=== PATIENT | male | born 1940 | race Caucasian/White ===

== ENCOUNTER 2018-05-15 15:40 | Emergency (ER) | payer OTHER ==
[2018-05-15 16:46] LABS: Absolute Lymphocytes (CBC) 0.4 K/uL (0.7-4.9); Absolute Neutrophil 10.8 K/uL (1.8-8.0); Basophils % 0.3 % (0-1.3); Eosinophils % 0.7 % (0-4.4); Hematocrit 44.6 % (39.6-49.0); Lymphocytes % 2.9 % (15.3-44.8); MPV 10.8 fL (7.6-11.3); Monocytes % 8.1 % (3.3-12.3); RBC Red Blood Cell Count 4.73 M/uL (4.33-5.43)
[2018-05-15 16:47] LABS: Protime INR 1.32
--- NOTE | 2018-05-15 17:01 | RAD REPORT ---
EXAM DESCRIPTION: RAD - Chest Single View - 05/15/2018 4:55 pm CLINICAL HISTORY: weakness Chest pain. COMPARISON: No comparisons FINDINGS: Portable technique limits examination quality. The lungs are grossly clear. The heart is normal in size. No displaced fractures. IMPRESSION: No acute intrathoracic process suspected.
[2018-05-15 17:12] LABS: ALT/SGPT 17 U/L (12-78); AST/SGOT 20 U/L (15-37); Albumin 3.5 g/dL (3.4-5.0); Alkaline Phosphatase 33 U/L (45-117); BUN Blood Urea Nitrogen 28 mg/dL (7-18); Bicarbonate 27 mmol/L (21-32); Bilirubin Direct 0.3 mg/dL (0-0.2); Bilirubin Total 1.5 mg/dL (0.2-1.0); Glucose Level 106 mg/dL (74-106); Magnesium 2.1 mg/dL (1.8-2.4); NT PRO-BNP 475 pg/mL (<450); Potassium 4.3 mmol/L (3.5-5.1); Protein, Total 7.1 g/dL (6.4-8.2); Sodium Level 140 mmol/L (136-145); Troponin (Emerg Dept Use Only) < 0.02 ng/mL (0.0-0.045)
[2018-05-15] MEDS ORDERED: NA CHLORIDE 0.9% 1,000 ML ONE (17:33)
--- NOTE | 2018-05-15 18:39 | ER ---
Nurse's Notes [facility] Name: Azeem Mclaughlin III Age: 77 yrs Sex: Male : 1940 Arrival Date: 05/15/2018 Time: 16:08 Bed 14 Private MD: Guilherme Zarate V Diagnosis: Orthostatic hypotension;Dehydration Presentation: 05/15 16:09 Presenting complaint: EMS states: PT WAS AT DR MANUEL OFFICE. POSITIVE FOR FLU. PT WAS ls4 LEAVING AND BECAME WEAK AND LOWERED TO THE GROUND. NO LOC. PT HAS BEEN WEEK AND NOT EATING FOR A FEW DAYS. Transition of care: patient was received from another setting of care (ambulatory primary care physician practice), DR ZARATE. Onset of symptoms was May 15, 2018. Risk Assessment: Do you want to hurt yourself or someone else? Patient reports no desire to harm self or others. Initial Sepsis Screen: Does the patient meet any 2 criteria? No. Patient's initial sepsis screen is negative. Does the patient have a suspected source of infection? No. Patient's initial sepsis screen is negative. Care prior to arrival: None. 16:09 Method Of Arrival: EMS: [facility] ls4 16:09 Acuity: ARCHIE 3 ls4 Triage Assessment: 18:32 General: Appears in no apparent distress. Behavior is calm, cooperative. ls4 Historical: - Allergies: 16:11 No Known Allergies; ls4 - Home Meds: 16:50 aspirin Oral once daily [Active]; Colchicine Oral [Active]; losartan oral oral ls4 [Active]; Metoprolol Tartrate Oral [Active]; ezetimibe oral oral [Active]; - Immunization history:: Last tetanus immunization: not indicated for visit today. - Social history:: Smoking status: Patient/guardian denies using tobacco. - Ebola Screening: : Patient negative for fever greater than or equal to 101.5 degrees Fahrenheit, and additional compatible Ebola Virus Disease symptoms Patient denies exposure to infectious person Patient denies travel to an Ebola-affected area in the 21 days before illness onset No symptoms or risks identified at this time. Screenin:12 Abuse screen: Denies threats or abuse. Denies injuries from another. Nutritional ls4 screening: No deficits noted. Tuberculosis screening: Fall Risk Fall in past 12 months (25 points). Secondary diagnosis (15 points) IV access (20 points). Ambulatory Aid- None/Bed Rest/Nurse Assist (0 pts). Gait- Weak (10 pts.). Mental Status- Oriented to own ability (0 pts). Assessment: 16:13 Pain:. Respiratory: Respiratory effort is even, unlabored, Respiratory pattern is ls4 regular. Vital Signs: 16:11 BP 106 / 57; Pulse 65; Resp 16; Temp 98.4; Pulse Ox 94% on R/A; Pain 5/10; ls4 17:08 BP 143 / 61 Supine; Pulse 66; Resp 17; Pulse Ox 99% on R/A; mh5 17:10 BP 126 / 65 Sitting; Pulse 67; Resp 18; Pulse Ox 100% on R/A; mh5 17:12 BP 105 / 56 Standing; Pulse 69; Resp 18; Pulse Ox 99% on R/A; mh5 18:15 BP 141 / 66 Supine; Pulse 68; Resp 16; ls4 18:17 BP 144 / 64 Sitting; Pulse 68; Resp 16; ls4 18:18 BP 138 / 63 Standing; Pulse 71; Resp 16; Pulse Ox 99% ; ls4 ED Course: 16:08 Patient arrived in ED. ls4 16:08 EKG done, by arcade technician. reviewed by Mode Hilario MD. sm3 16:09 Guilherme Zarate MD is Private Physician. ls4 16:11 Triage completed. ls4 16:11 Arm band placed on. EKG completed in triage. Results shown to MD. ls4 16:12 Elodia Castro [facility]C [facility]. kb 16:12 Mode Hilario MD is Attending Physician. kb 16:13 No provider procedures requiring assistance completed. ls4 16:20 Zara Esquivel, RN is Primary Nurse. ls4 16:46 Inserted saline lock: 18 gauge in right antecubital area, using aseptic technique. ls4 Blood collected. Patient maintains SpO2 saturation greater than 95% on room air. 16:46 Allergy band placed. Bed in low position. Call light in reach. Side rails up X 1. Adult ls4 w/ patient. buffer operator on. Pulse ox on. NIBP on. Warm blanket given. 16:48 X-ray completed. Portable x-ray completed in exam room. Patient tolerated procedure ml well. 16:54 XRAY Chest (1 view) In Process Unspecified. EDMS 18:38 Guilherme Zarate MD is Referral Physician. kb 19:25 IV discontinued, intact, bleeding controlled, No redness/swelling at site. Pressure ls4 dressing applied. Administered Medications: 17:21 Drug: NS 0.9% 1000 ml Route: IV; Rate: 1000 ml; Site: right antecubital; ls4 18:21 Follow up: IV Status: Completed infusion; IV Intake: 1000ml ls4 Intake: 18:21 IV: 1000ml; Total: 1000ml. ls4 Outcome: 18:39 Discharge ordered by . kb 19:25 Patient left the ED. ls4 19:30 Discharged to home ambulatory, with family. ls4 19:30 Condition: good 19:30 Discharge instructions given to patient, family, Instructed on discharge instructions, follow up and referral plans. medication usage, Demonstrated understanding of instructions, follow-up care, medications. Signatures: Dispatcher [employer] EDAK Elodia Castro, PROCESS CONTROL BOARD OPERATOR-C PROCESS CONTROL BOARD OPERATOR-Paulina Aragon Maria 5 Reena Emery 3 Zara Esquivel RN RN ls4 Corrections: (The following items were deleted from the chart) 18:33 18:17 BP 144 / 64; Pulse 68bpm; Resp 16bpm; ls4 ls4 18:33 18:18 BP 138 / 63; Pulse 71bpm; Resp 16bpm; Pulse Ox 99%; ls4 ls4
--- NOTE | 2018-05-15 18:40 | EDPHYS ---
Physician Documentation [facility] Name: Azeem Mclaughlin III Age: 77 yrs Sex: Male : 1940 Arrival Date: 05/15/2018 Time: 16:08 Bed 14 Private MD: Guilherme Zarate V ED Physician Mode Hilario HPI: 05/15 17:35 This 77 yrs old Male presents to ER via EMS with complaints of Near Syncope. kb 17:35 The patient has experienced near-syncope, felt faint, felt generally weak. Onset: The kb symptoms/episode began/occurred just prior to arrival. Duration: This was a single episode. Context: the episode(s) was witnessed, by family, Dr Zarate, occurred at an office, occurred while the patient was standing, Just prior to the episode the patient experienced weakness. Associated injury: The patient did not suffer any apparent associated injury. Associated signs and symptoms: Pertinent positives: weakness. Current symptoms: Currently, the patient is not experiencing any symptoms, the patient feels back to baseline, no decreased level of consciousness, no confusion, no dysphasia, no headache, no paralysis, no visual changes. The patient has not experienced similar symptoms in the past. The patient has been recently seen by a physician: the patient's primary care provider, Dr. Zarate earlier today. Pt was at Dr Zarate's office for flu symptoms and decreased intake. Tested positive for the flu. Was checking out and got weak, was lowered to the ground. . Historical: - Allergies: 16:11 No Known Allergies; ls4 - Home Meds: 16:50 aspirin Oral once daily [Active]; Colchicine Oral [Active]; losartan oral oral ls4 [Active]; Metoprolol Tartrate Oral [Active]; ezetimibe oral oral [Active]; - Immunization history:: Last tetanus immunization: not indicated for visit today. - Social history:: Smoking status: Patient/guardian denies using tobacco. - Ebola Screening: : Patient negative for fever greater than or equal to 101.5 degrees Fahrenheit, and additional compatible Ebola Virus Disease symptoms Patient denies exposure to infectious person Patient denies travel to an Ebola-affected area in the 21 days before illness onset No symptoms or risks identified at this time. ROS: 17:39 Constitutional: Negative for fever, chills, and weight loss, ENT: Negative for injury, kb pain, and discharge, Neck: Negative for injury, pain, and swelling, Cardiovascular: Negative for chest pain, palpitations, and edema, Respiratory: Negative for shortness of breath, cough, wheezing, and pleuritic chest pain, Abdomen/GI: Negative for abdominal pain, nausea, vomiting, diarrhea, and constipation, MS/Extremity: Negative for injury and deformity, Skin: Negative for injury, rash, and discoloration. 17:39 Neuro: Positive for weakness. Exam: 17:39 Constitutional: This is a well developed, well nourished patient who is awake, alert, kb and in no acute distress. Head/Face: Normocephalic, atraumatic. ENT: Nares patent. No nasal discharge, no septal abnormalities noted. Tympanic membranes are normal and external auditory canals are clear. Oropharynx with no redness, swelling, or masses, exudates, or evidence of obstruction, uvula midline. Mucous membranes moist. Neck: Trachea midline, no thyromegaly or masses palpated, and no cervical lymphadenopathy. Supple, full range of motion without nuchal rigidity, or vertebral point tenderness. No Meningismus. Chest/axilla: Normal chest wall appearance and motion. Nontender with no deformity. No lesions are appreciated. Cardiovascular: Regular rate and rhythm with a normal S1 and S2. No gallops, murmurs, or rubs. Normal PMI, no JVD. No pulse deficits. Respiratory: Lungs have equal breath sounds bilaterally, clear to auscultation and percussion. No rales, rhonchi or wheezes noted. No increased work of breathing, no retractions or nasal flaring. Abdomen/GI: Soft, non-tender, with normal bowel sounds. No distension or tympany. No guarding or rebound. No evidence of tenderness throughout. Skin: Warm, dry with normal turgor. Normal color with no rashes, no lesions, and no evidence of cellulitis. MS/ Extremity: Pulses equal, no cyanosis. Neurovascular intact. Full, normal range of motion. Neuro: Awake and alert, GCS 15, oriented to person, place, time, and situation. Cranial nerves II-XII grossly intact. Motor strength 5/5 in all extremities. Sensory grossly intact. Cerebellar exam normal. Normal gait. Vital Signs: 16:11 BP 106 / 57; Pulse 65; Resp 16; Temp 98.4; Pulse Ox 94% on R/A; Pain 5/10; ls4 17:08 BP 143 / 61 Supine; Pulse 66; Resp 17; Pulse Ox 99% on R/A; mh5 17:10 BP 126 / 65 Sitting; Pulse 67; Resp 18; Pulse Ox 100% on R/A; mh5 17:12 BP 105 / 56 Standing; Pulse 69; Resp 18; Pulse Ox 99% on R/A; mh5 18:15 BP 141 / 66 Supine; Pulse 68; Resp 16; ls4 18:17 BP 144 / 64 Sitting; Pulse 68; Resp 16; ls4 18:18 BP 138 / 63 Standing; Pulse 71; Resp 16; Pulse Ox 99% ; ls4 MDM: 16:12 Patient medically screened. kb 17:35 Data reviewed: vital signs, nurses notes. Data interpreted: Pulse oximetry: on room air kb is 99 %. Interpretation: normal. 17:37 Physician consultation: Guilherme Zarate MD was contacted at 16:30, regarding patient's kb condition, Dr Zarate reported that pt had an episode of orthostatic hypotension due to dehydration. Pt's systolic BP was in the 60s. Reports pt did not pass out/ no LOC. 18:38 Counseling: I had a detailed discussion with the patient and/or guardian regarding: the kb historical points, exam findings, and any diagnostic results supporting the discharge/admit diagnosis, lab results, radiology results, the need for outpatient follow up, a family practitioner, to return to the emergency department if symptoms worsen or persist or if there are any questions or concerns that arise at home. 20:15 ED course: Orthostatics negative after fluids. No dizziness or lightheadedness upon kb standing. Educated to increase fluids. 05/15 16:17 Order name: Basic Metabolic Panel; Complete Time: 17:16 kb 05/15 16:17 Order name: CBC with Diff kb 05/15 16:17 Order name: LFT's; Complete Time: 17:16 kb 05/15 16:17 Order name: Magnesium; Complete Time: 17:16 kb 05/15 16:17 Order name: NT PRO-BNP; Complete Time: 17:16 kb 05/15 16:17 Order name: PT-INR; Complete Time: 17:11 kb 05/15 16:17 Order name: Troponin (emerg Dept Use Only); Complete Time: 17:16 kb 05/15 16:17 Order name: XRAY Chest (1 view); Complete Time: 17:11 kb 05/15 16:17 Order name: EKG; Complete Time: 16:18 kb 05/15 16:17 Order name: Cardiac monitoring; Complete Time: 16:42 kb 05/15 16:17 Order name: EKG - Nurse/Tech; Complete Time: 16:42 kb 05/15 16:17 Order name: IV Saline Lock; Complete Time: 16:43 kb 05/15 16:17 Order name: Labs collected and sent; Complete Time: 16:42 kb 05/15 16:17 Order name: O2 Per Protocol; Complete Time: 16:43 kb 05/15 16:17 Order name: O2 Sat Monitoring; Complete Time: 16:43 kb 05/15 16:17 Order name: Orthostatics; Complete Time: 17:27 kb 05/15 18:22 Order name: Orthostatics; Complete Time: 18:28 kb Administered Medications: 17:21 Drug: NS 0.9% 1000 ml Route: IV; Rate: 1000 ml; Site: right antecubital; ls4 18:21 Follow up: IV Status: Completed infusion; IV Intake: 1000ml ls4 Disposition: 05/16 09:10 Co-signature as Attending Physician, Mode Hilario MD I agree with the assessment and ladonna plan of care. Disposition: 05/15/18 18:39 Discharged to Home. Impression: Orthostatic hypotension, Dehydration. - Condition is Stable. - Discharge Instructions: Near-Syncope, [id number], Influenza, Adult, [id number], Dehydration, Adult, [id number]. - Medication Reconciliation Form, Thank You Letter, Antibiotic Education, Prescription Opioid Use form. - Follow up: Emergency Department; When: As needed; Reason: Worsening of condition. Follow up: Guilherme Zarate MD; When: 2 - 3 days; Reason: Recheck today's complaints, Continuance of care, Re-evaluation by your physician. Signatures: Dispatcher [employer] Elodia Eaton, FRONT COUNTER ATTENDANTMode Shannon MD MD cha Stewart, Lisa, RN RN ls4 Corrections: (The following items were deleted from the chart) 05/15 16:31 16:18 Head Brain Wo Cont+CT.RAD.BRZ ordered. EDMS EDMS 19:25 18:39 05/15/2018 18:39 Discharged to Home. Impression: Orthostatic hypotension; ls4 Dehydration. Condition is Stable. Forms are Medication Reconciliation Form, Thank You Letter, Antibiotic Education, Prescription Opioid Use. Follow up: Emergency Department; When: As needed; Reason: Worsening of condition. Follow up: Guilherme Zarate; When: 2 - 3 days; Reason: Recheck today's complaints, Continuance of care, Re-evaluation by your physician. kb
[2018-05-15 20:22] LABS: Blood Morphology Comment NOT SEEN (NOT SEEN); Platelet Estimate ADEQ; Urine White Blood Cell Casts OK
--- NOTE | 2018-05-16 05:27 | EKG ---
Test Date: 2018-05-15 Test Time: 15:54:26 Field Logistics Coordinator: MIMI MEASUREMENT RESULTS: Intervals: Rate: 65 WY: 158 QRSD: 142 QT: 430 QTc: 447 [place]: P: 75 WY: 158 QRS: -68 T: -4 INTERPRETIVE STATEMENTS: Normal sinus rhythm Right bundle branch block Left axis Septal infarct, age undetermined Abnormal ECG Compared to ECG 08/27/1996 05:45:00 Right bundle-branch block now present Left axis now present Electronically Signed On 05-16-18 05:26:22 CDT by Samy Menendez
== END 2018-05-15 19:25 | disposition home or self-care (01) ==
LOC: ER 15:40
DX: I95.1 Orthostatic hypotension (principal); E86.0 Dehydration
CPT/HCPCS: 93005; 85025; 80048; 36415; 83735; 85610; 80076; 84484; 83880; 71045; 96360; 99285; J7030

== ENCOUNTER 2020-02-01 07:53 | Emergency (ER) | payer OTHER ==
--- OUTSIDE RECORDS SUMMARY | 2020-02-01 08:09 | XMS REPORT | Continuity of Care Document ---
:1940 Author Organization Formerly [facility] t Address [address] [place] [address] Care Team Providers Name Role Phone JOHNNIE Primary Care Physician Unavailable CHERELLE Attending Clinician Unavailable Gretchen Barba NP Attending Clinician Fredy FONTENOT Attending Clinician Zurdo Murphy MD Attending Clinician Johnnie STUART Attending Clinician Melodie DAWKINS R Attending Clinician Yang Johnson Attending Clinician Unavailable JOHNNIE Attending Clinician Unavailable Cherelle STUART Attending Clinician Lambert STUART Attending Clinician Barbara DAWKINS Attending Clinician LUISA Attending Clinician Unavailable Luisa DAWKINS Attending Clinician Charli KHAN Attending Clinician Unavailable Anya Sanchez MA Attending Clinician Unavailable ZURDO MURPHY Attending Clinician Unavailable YANG PALM Attending Clinician Unavailable Benson Morrissey MD Attending Clinician Nabor KHAN, T Attending Clinician Unavailable Karen Soto MD Attending Clinician Hazel Abbott MD Attending Clinician Citlali KHAN G Attending Clinician Unavailable Fatoumata Galeas RD Attending Clinician Misbah KHAN, M Attending Clinician Unavailable Karson Attending Clinician Unavailable Dejon KHAN, M Attending Clinician Unavailable Rolo STUART Attending Clinician Som KHAN C Attending Clinician Unavailable Stepahnie Palma RN Attending Clinician Unavailable Diane STUART Attending Clinician Wilder KHAN, L. Attending Clinician Unavailable Jose STUART, A Attending Clinician Мария Cortes Attending Clinician Unavailable Zack KHAN Attending Clinician Unavailable Terrance STUART, Mat Attending Clinician Sohail EARLY, A Attending Clinician Rosi DAWKINS Attending Clinician Cornell FONTENOT, M Attending Clinician Nabor ULLOA Attending Clinician [facility] Attending Clinician Ponce STUART Attending Clinician Doctor Unassigned, Name Attending Clinician Unavailable Rolando Roldan Attending Clinician CHERELLE Admitting Clinician Unavailable Ponce STUART Admitting Clinician Payers Payer Name Policy Type Policy Number Effective Date Expiration Date S bora MEDICARE PART A AND [id number] 2007 B 00:00:00 [employer] NON [id number] 8522-01-01 CONTRACTED 00:00:00 Problems Condition Condition Condition Status Onset Resolution Last Treating Co mments Source Name Details Category Date Date Treatment Clinician Date 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-02 Anderso moderate moderate 00:00: n degree degree 00 Weight Weight Disease Active 2019- MD loss loss 04-14 Anderso 00:00: n 00 Neuropathy Neuropathy Disease Active 2019-0 M D 04-14 Anderso 00:00: n 00 Decrease Decrease Disease Active 2019-0 MD in in 04-14 Anderso appetite appetite 00:00: n 00 Dehydratio Dehydratio Disease Active 2018-03 M D n n 1-15 Anderso 00:00: n 00 Encounter Encounter Disease Active 2018-03 Overview: MD for other for other 0-10 EKG Adams rso preprocedu preprocedu 00:00: 12/11/18 n ral ral 00 - 66, examinatio examinatio SRRBBB n n and LAFBProba marge LVHAbnorm alNote dated 9 signed by Roman Mon MDI have recently examined the above patient. Indicated cardiac testing was done. It is my impressio n that the patient is at acceptabl e risk for the planned surgery. Outside echo 03/14/2016 TDS. LV normal in size, mild LVH. EF 55%. No regional wall motion abnormali ties. Outside carotid doppler 07/01/2018 Intimal thickenin g noted, patent L CEA indicatin g < 50% disease. 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 Pt is followed by Dr. Roman Mon q6 months. Pt routinely has stress test, echos, caortid dopplers. Last stress test following angioplas ty was negative per pt. Requested reports. Paroxysmal Paroxysmal Disease Active 2018-03 Overview : atrial atrial 0-10 Dx 2016 Anderso fibrillati fibrillati 00:00: following n on on 00 stent placement . Denies hx of cardiover raciel. Pt takes amiodaron 200mg daily and metoprolo l 50mg daily. Was taking eliquis 2.5mg daily, however pt stopped taking 2 weeks ago. Pt in SR on EKG 12/11/18. Long-term Long-term Disease Active 2018-03 Overview: (current) (current) 0-10 eliquis And erso use of use of 00:00: 2.5mg for n anticoagul anticoagul 00 A-fib. ants ants LD 12/03/18. Long-term Long-term Disease Active 2018-03 Overview: (current) (current) 0-10 Plavix Adams rso use of use of 00:00: for hx of n antiplatel antiplatel 00 EDWIN x2. ets/antith ets/antith Last dose rombotics rombotics 11/13/18. 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 BP Readings from Last 3 Encounter s: 12/11/18 133/65 12/11/18 148/67 12/10/18 137/67 Gout Gout Disease Active 2018-03 Overview: 0-10 Last Anderso 00:00: flare 3 n 00 weeks ago. Pt takes allopurin ol and cochicine . Chronic Chronic Disease Active 2018-03 Overview: obstructiv obstructiv 0-10 Pt does A nderso e e 00:00: not have n pulmonary pulmonary 00 any disease disease inhalers or O2 for COPD. Chronic Chronic Disease Active 2018-03 Overview: kidney kidney 0-10 Formattin Anderso disease, disease, 00:00: g of this n Stage III Stage III 00 note (moderate) (moderate) might be different from the original. Lab Results Component Value Date CREATININ E 1.65 (H) 9 CREATININ E 2.10 (H) 9 CREATININ E 1.85 (H) 9 estimated creatinin e clearance is 40 mL/min (A) (by C-G formula based on SCr of 1.65 mg/dL (H)).Lab Results Component Value Date/Time EGFRAA 46 (L) 9 03:00 PM EGFRNAA 40 (L) 9 03:00 PM Carotid Carotid Disease Active 2018-03 Overview: artery artery 0-10 s/p a Champ stenosis stenosis 00:00: procedure n 00 in which the plaque was "cleaned out" in 2005. Pt denies hx of carotid endartere ctomy. Pt is followed by cardiolog ist q6 months, last July 2018. Bilateral carotid doppler at that time was negative. Requeste d report. 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 Family History Family Member Diagnosis Comments Start Date Stop Date Source Natural father -Colon cancer MD Adams flowers Natural father -Melanoma MD Champ thrasher Natural mother -Liver cancer MD Adams flowers Social History Social Habit Start Date Stop Date Quantity Comments Source Sex Assigned At MD Smart on Cigarettes smoked 2019-09-16 2019-09-16 MD Adams flowers current (pack per 00:00:00 00:00:00 day) - Reported Tobacco use and 2019-09-16 2019-09-16 Never used MD Smart on exposure 00:00:00 00:00:00 Alcohol intake 2019-09-16 2019-09-16 Ex-drinker MD Champ thrasher 00:00:00 00:00:00 (finding) Alcohol Comment 2018-11-28 2018-11-28 2 drinks per day MD Hilario 00:00:00 00:00:00 History of tobacco 1960-03-04 2006-09-07 Current smoker MD Hilario use 00:00:00 00:00:00 Smoking Status Start Date Stop Date Source Former smoker 2019-09-16 00:00:00 2019-09-16 00:00:00 MD Rodriguez son Medications Ordered Filled Start Stop Current Ordering Indication Dosage Frequency Signature Comments Components Source Medication Medication Date Date Medication? Clinician (SIG) Name Name fexofenadin Yes 60mg Take 60 mg e (LINO) 9-29 by mouth Adams rso 60 mg 18:08: as needed. n tablet 55 losartan-hy Yes 1{tbl} Take 1 MD drochloroth 9-29 tablet by And erso iazide 18:08: mouth n (HYZAAR) 55 daily. 100-25 mg per tablet ONE DAILY 2019- No 1{tbl} Take 1 MD MULTIVITAMI 10-16 tablet by An derso N ORAL 23:11: 00:00 mouth. n 35 :00 vit 2019- No 1{capsu Take 1 MD C/E/Zn/amanda 10-16 le} capsule by A nderssaad r/lutein/ze 23:11: 00:00 mouth n axan 35 :00 daily as (PRESERVISI needed. ON AREDS-2 ORAL) bisacodyl 2019- No 5mg Take 5 mg MD (DULCOLAX) 10-16 by mouth Adams rso 5 mg EC 23:11: 00:00 as needed n tablet 35 :00 for constipati on. Takes as needed ezetimibe 2019- No Take by MD (ZETIA 10-16 mouth as Anderso ORAL) 23:11: 00:00 needed. n 34 :00 senna-docus Yes Cancer of 2{tbl} Take 2 MD ate 7-14 anal tablets by Champ (SENOKOT-S) 00:00: margin, not mouth 2 n 8.6 mg-50 00 otherwise (two) mg tablet specified times a day as needed for constipati on. polyethylen Yes Cancer of Fill M D e glycol 7-14 anal powder to Berry o (Miralax) 00:00: margin, not top of n 17 00 otherwise white gram/dose specified section in powder cap which is marked to indicate the correct dose (17 g) stir and dissolve in any 4 to 8 ounces of beverage (cold, hot or room temperatur e) then drink once a day. DO NOT TAKE if you are having diarrhea (loose or frequent stools). metroNIDAZO 2019- No Cancer of Take 1 MD LE (FLAGYL) 08-20-14 overlapping tablet by Anderssaad 500 mg 00:00: 00:00 sites of mouth at n tablet 00 :00 rectum, 9pm and at anus and 11pm the anal canal evening prior to surgery amiodarone 2019- Yes 100mg Take 100 MD (PACERONE) 6-17 mg by Anderso 200 mg 00:00: mouth n tablet 00 daily. metoprolol 2019- Yes 50mg Take 50 mg M D tartrate 6-17 by mouth Anderso (LOPRESSOR) 00:00: twice n 50 mg 00 daily. tablet HYDROcodone 2019- No Cancer 1{tbl} Take 1 MD -acetaminop 6- 07-14 associated tablet by Champ hen (NORCO) 00:00: 00:00 pain mouth n 10 mg-325 00 :00 every 6 mg per (six) tablet hours as needed for moderate pain. losartan-hy 2019-2019- No 1{tbl} Take 1 M D drochloroth 5-18 06- tablet by Gissell powell 00:00: 00:00 mouth n (HYZAAR) 00 :00 daily. 100-25 mg per tablet ondansetron 2019- Yes cancer 8mg Take 1 MD (Zofran) 8 4-08 chemotherap tablet (8 Anderso mg tablet 00:00: y-induced mg) by n 00 nausea and mouth vomiting every 8 (eight) hours as needed for nausea or vomiting. prochlorper 2019- Yes cancer 10mg Take 1 MD azine 4-08 chemotherap tablet (10 A nderso (Compazine) 00:00: y-induced mg) by n 10 mg 00 nausea and mouth tablet vomiting every 6 (six) hours as needed for nausea or vomiting. loperamide 2019- No chemotherap 2 tabs po MD (Imodium 06-09- y-induced 1st loose Anderso A-D) 2 mg 00:00: 00:00 diarrhea stool, n tablet 00 :00 then 1 tab q2h until diarrhea free for 12 hours. May take 2 tabs q4hrs at night. diphenoxyla 2019-2019- No chemotherap 1{tbl} Take 1-2 MD te-atropine -10 08-14 y-induced tablets by Anderssaad (LomotiL) 00:00: 00:00 diarrhea mouth n 2.5 00 :00 every 6 mg-0.025 mg (six) per tablet hours as needed for diarrhea (or loose stool. (Second Choice)). Not to exceed 8 tablets per day diphenoxyla 2019-2019- No chemotherap 1{tbl} Take 1-2 MD te-atropine 06-09 y-induced tablets by Anderso (LomotiL) 00:00: 00:00 diarrhea mouth n 2.5 00 :00 every 6 mg-0.025 mg (six) per tablet hours as needed for diarrhea (or loose stool. (Second Choice)). Not to exceed 8 tablets per day ondansetron 2019- No cancer 8mg Take 1 M D (Zofran) 8 06-09 chemotherap tablet (8 Anderso mg tablet 00:00: 00:00 y-induced mg) by n 00 :00 nausea and mouth vomiting every 8 (eight) hours as needed for nausea or vomiting. prochlorper 2019- No cancer 10mg Take 1 M D azine 06-09 chemotherap tablet (10 Anderso (Compazine) 00:00: 00:00 y-induced mg) by n 10 mg 00 :00 nausea and mouth tablet vomiting every 6 (six) hours as needed for nausea or vomiting. capecitabin 2019- No Cancer of 1000mg Take 2 MD e (Xeloda) 06-09 overlapping tablets by Anderso 500 mg 00:00: 00:00 sites of mouth in n tablet 00 :00 rectum, the anus and morning anal canal and 2 tablets in the evening Saturday-Sat with radiation. colchicine 2019-2019- No 1{tbl} Take 1 MD (COLCRYS) 05-05 tablet by Adams villaloboso 0.6 mg 00:00: 00:00 mouth as n tablet 00 :00 needed. metroNIDAZO 2019- No Cancer of Take 1 MD LE (FLAGYL) 05-04 overlapping tablet by Anderso 500 mg 00:00: 00:00 sites of mouth at n tablet 00 :00 rectum, 9pm and at anus and 11pm the anal canal evening prior to surgery neomycin 2019-2019- No Cancer of Take 1 po MD (MYCIFRADIN 05-04 overlapping at 9pm and Anderso ) 500 mg 00:00: 00:00 sites of 1 po at n tablet 00 :00 rectum, 11pm the anus and night anal canal prior to surgery amLODIPine 2019- No 1{tbl} Take 1 (NORVASC) 5 03-23 03-03 tablet by An derso mg tablet 00:00: 00:00 mouth n 00 :00 daily. sucralfate 2018-03- No Reflux 1000mg Swish and (CARAFATE) 2 07-14 esophagitis swallow 10 Anderso 100 mg/mL 00:00: 00:00 mL (1,000 n suspension 00 :00 mg) 4 (four) times a day before meals and nightly. clindamycin 2018-03- No TAKE 2 (CLEOCIN) 03-24-03 CAPSULES Michael so 150 mg 00:00: 00:00 BY MOUTH 4 n capsule 00 :00 TIMES A DAY FOR 10 DAYS diphenoxyla 2018-03- No Cancer of 1{tbl} Take 1 to te-atropine 03-1814 overlapping 2 tablets Anderso (LOMOTIL) 00:00: 00:00 sites of by mouth n 2.5 00 :00 rectum, every 6 mg-0.025 mg anus and (six) per tablet anal canal hours as needed for diarrhea. Not to exceed 8 tablets per day pantoprazol 2018-03- No Cancer of 40mg Take 1 e 03-18 04-08 overlapping tablet (40 A nderso (PROTONIX) 00:00: 00:00 sites of mg) by n 40 mg EC 00 :00 rectum, mouth tablet anus and daily with anal canal breakfast. sucralfate 2018-03- No Cancer of 1000mg Swish and (CARAFATE) 03-1806 overlapping swallow 10 Anderso 100 mg/mL 00:00: 00:00 sites of mL (1,000 n suspension 00 :00 rectum, mg) 4 anus and (four) anal canal times a day before meals and nightly. At least 1 hr before meals and other medication s traMADol 2018- Yes Chronic 50mg Take 1 (ULTRAM) 50 0-18 pain tablet (50 An derso mg tablet 00:00: mg) by n 00 mouth 2 (two) times a day as needed for moderate pain or severe pain. lidocaine-p 2018-03 Yes Encounter Apply to rilocaine 0-10 for Port-A-Cat Adams rso (EMLA) 00:00: adjustment h area 30 n 2.5-2.5% 00 and to 45 cream management minutes of vascular prior to access port device access as directed (topical anesthetic ). lidocaine 2018-03- No Cancer 1{appli Apply 1 MD (ANECREAM5) 0-10 07-14 associated cation} applicatio Anderso 5 % cream 00:00: 00:00 pain n n 00 :00 topically 3 (three) times a day as needed (rectal pain). ondansetron 2019- No Cancer of 8mg Take 1 MD (ZOFRAN) 8 11-28 04-06 overlapping tablet (8 Anderso mg tablet 00:00: 00:00 sites of mg) by n 00 :00 rectum, mouth anus and every 8 anal canal (eight) hours as needed for nausea or vomiting. (First Choice) prochlorper 2019- No Cancer of 10mg Take 1 MD azine 11-28- overlapping tablet (10 Anderso (COMPAZINE) 00:00: 00:00 sites of mg) by n 10 mg 00 :00 rectum, mouth tablet anus and every 6 anal canal (six) hours as needed for nausea or vomiting. (Second Choice) clopidogrel Yes 75mg Take 75 mg MD (PLAVIX) 75 7-10 by mouth Adams rso mg tablet 00:00: daily. n 00 Last dose 3 weeks ago. metoprolol 2019- No 50mg Take 50 mg MD tartrate 09-05 by mouth Berry o (LOPRESSOR) 00:00: 00:00 daily. n 50 mg 00 :00 tablet ELIQUIS 2.5 2019- No 2.5mg Take 2.5 MD mg tablet 09-01- mg by Anderso 00:00: 00:00 mouth n 00 :00 daily. allopurinol 2019- No 100mg Take 100 MD (ZYLOPRIM) 07-20- mg by Anderso 100 mg 00:00: 00:00 mouth as n tablet 00 :00 needed. amiodarone 2019- No 100mg Take 100 M D (PACERONE) 07-10 06- mg by Anderso 200 mg 00:00: 00:00 mouth n tablet 00 :00 daily. loperamide 2019- No as needed. (IMODIUM) 2 308-02 Anderso mg capsule 00:00: 00:00 n 00 :00 colchicine 2019- No daily. MD 0.6 mg cap 10-29 Anderso 00:00: 00:00 n 00 :00 losartan-hy 2019- No .5{tbl} Take 0.5 MD drochloroth 09-06 tablets by A robrssaad iazide 00:00: 00:00 mouth n (HYZAAR) 00 :00 daily. 100-12.5 mg per tablet atorvastati 2019- No daily. MD thrasher (LIPITOR) 08-27 Anderso 80 mg 00:00: 00:00 n tablet 00 :00 meloxicam 2019- No as needed. Courtney Dobson (MOBIC) 15 08-21 Anderso mg tablet 00:00: 00:00 n 00 :00 Vital Signs Vital Name Observation Time Observation Value Comments Source WEIGHT 2019-09-08 00:00:00 75.1 kg WEIGHT 2019-09-08 00:00:00 75.1 kg WEIGHT 2019-08-21 00:00:00 75.4 kg WEIGHT 2019-08-21 00:00:00 75.4 kg Systolic blood pressure 2019-12-01 17:50:51 146 mm[Hg] MD Hilario Diastolic blood pressure 2019-12-01 17:50:51 67 mm[Hg] MD Hilario Heart rate 2019-12-01 17:50:51 46 /min MD Michael young Body temperature 2019-12-01 17:50:51 36.61 Shahnaz MD Patricio crouch Oxygen saturation in 2019-12-01 17:50:51 100 /min MD Hilario Arterial blood by Pulse oximetry Respiratory rate 2019-11-30 14:33:49 20 /min MD Patricio crouch Body weight 2019-11-30 14:30:00 75.1 kg MD Michael young BMI 2019-11-30 14:30:00 26.29 kg/m2 MD Michael young Body height 2019-09-14 23:24:50 169 cm MD Micheal young Procedures Procedure Date / Time Performed Performing Clinician [facility] e TYPE AND SCREEN 2019-09-15 08:17:00 Lam Richardson MD ABORH 2019-09-15 08:17:00 Lam Richardson MD ANTIBODY SCREEN 2019-09-15 08:17:00 Lam Richardson MD CLOT EXPIRATION DATE 2019-09-15 08:17:00 Lam Richardson MD rson TMP INTERPRETATION ANTIBODY 2019-09-15 08:17:00 Lam Richardson MD SCREEN NEGATIVE PATHOLOGY SURGICAL 2019-09-14 13:08:00 Lam Richardson MD on INTERPRETATION EXCISION OF TUMOR OF SOFT 2019-09-14 11:22:00 Lam Richardson MD TISSUE OF PELVIS AND HIP AREA REARRANGEMENT OF ADJACENT 2019-09-14 11:22:00 Se Murphy MD TISSUE FOR REPAIR OF DEFECT OF TRUNK BLOOD UREA NITROGEN 2019-09-12 15:33:00 Robert Schmitzer son COMPLETE BLOOD COUNT W/ 2019-09-12 15:33:00 Robert Schmitz MD nderson DIFFERENTIAL SERUM CREATININE 2019-09-12 15:33:00 Robert Schmitz MD ELECTROLYTE PANEL 2019-09-12 15:33:00 Robert Schmitz MDo n GLUCOSE, RANDOM 2019-09-12 15:33:00 Robert Schmitz MD TYPE AND SCREEN 2019-09-12 15:33:00 Robert Schmitz MD SERUM CREATININE 2019-09-12 15:33:00 Robert Schmitz MD .GLOMERULAR FILTRATION RATE 2019-09-12 15:33:00 Robert Schmitz MD Results CBC 2019-09-12 15:33:00 Robert Schmitz MD MANUAL DIFFERENTIAL 2019-09-12 15:33:00 Robert Schmitzer son ABORH 2019-09-12 15:33:00 Robert Schmitz MD ANTIBODY SCREEN 2019-09-12 15:33:00 Robert Schmitz MD CLOT EXPIRATION DATE 2019-09-12 15:33:00 Robert Schmitz MD rson TMP INTERPRETATION ANTIBODY 2019-09-12 15:33:00 Robert Schmitz MD SCREEN NEGATIVE CONFIRM ABORH TYPE 2019-09-12 15:29:00 Robert Schmitz MD on HC COVID19 AUTOMATED PCR 2019-09-12 15:17:00 Ruth Augustin MD EKG, 12-LEAD (SCHEDULED) 2019-09-08 00:00:[address] CHEST ABDOMEN PELVIS W 2019-08-20 22:47:25 Jovanni Palm CONTRAST BLOOD UREA NITROGEN 2019-08-20 19:43:00 Jovanni Palm MD nderson CARCINOEMBRYONIC ANTIGEN 2019-08-20 19:43:00 Jovanni Palm MD SERUM CREATININE 2019-08-20 19:43:00 Jovanni Palm MD Adams rson COMPLETE BLOOD COUNT W/ 2019-08-20 19:43:00 Jovanni Palm MD DIFFERENTIAL ELECTROLYTE PANEL 2019-08-20 19:43:00 Jovanni Palm MD And erson SERUM CREATININE 2019-08-20 19:43:00 Jovanni Palm MD Adams rson .GLOMERULAR FILTRATION RATE 2019-08-20 19:43:00 Jovanni Palm MD Results CBC 2019-08-20 19:43:00 Jovanni Palm MD Michael son MANUAL DIFFERENTIAL 2019-08-20 19:43:00 Jovanni Palm MD nderson COMPLETE BLOOD COUNT W/ 2019-07-06 14:47:00 Chadd Blair MD nderson DIFFERENTIAL COMPREHENSIVE METABOLIC PANEL 2019-07-06 14:47:00 Anai Blair LACTATE DEHYDROGENASE 2019-07-06 14:47:00 Chadd Blair MD And erson MAGNESIUM LEVEL 2019-07-06 14:47:00 Chadd Blair MD PHOSPHORUS LEVEL 2019-07-06 14:47:00 Chadd Blair MD Results CBC 2019-07-06 14:47:00 Chadd Blair MD MANUAL DIFFERENTIAL 2019-07-06 14:47:00 [facility]add [facility] GLUCOSE LEV[facility] 2019-07-06 14:47:00 Chadd Blair MD BLOOD UREA NITROGEN 2019-07-06 14:47:00 Chadd Blair MD Michael son ELECTROLYTE PANEL 2019-07-06 14:47:00 Chadd Blair MDo SERUM CREATININE 2019-07-06 14:47:00 Chadd Blair MD .GLOMERULAR FILTRATION RATE 2019-07-06 14:47:00 Chadd Blair MD CALCIUM LEVEL TOTAL 2019-07-06 14:47:00 Chadd Blair MD Michael son ALBUMIN LEVEL 2019-07-06 14:47:00 hCadd Blair MD ALKALINE PHOSPHATASE 2019-07-06 14:47:00 Chadd Blair MD Adams rson ALANINE AMINOTRANSFERASE 2019-07-06 14:47:00 Chadd Blair MD ASPARTATE AMINOTRANSFERASE 2019-07-06 14:47:00 Chadd Blair TOTAL PROTEIN 2019-07-06 14:47:00 Chadd Blair MD FRACTIONATED BILIRUBIN 2019-07-06 14:47:00 Chadd Blair MD derson COMPLETE BLOOD COUNT W/ 2019-07-01 12:40:00 Chadd Blair MD nderson DIFFERENTIAL COMPREHENSIVE METABOLIC PANEL 2019-07-01 12:40:00 Anai Blair LACTATE DEHYDROGENASE 2019-07-01 12:40:00 Chadd Blair MD And erson MAGNESIUM LEVEL 2019-07-01 12:40:00 Chadd Blair MD PHOSPHORUS LEVEL 2019-07-01 12:40:00 Chadd Blair MD Results CBC 2019-07-01 12:40:00 Chadd Blair MD MANUAL DIFFERENTIAL 2019-07-01 12:40:00 Chadd Blair MD [facility] GLUCOSE LEVEL 2019-07-01 12:40:00 Chadd Blair MD BLOOD UREA NITROGEN 2019-07-01 12:40:00 Chadd Blair MD [facility] ELECTROLYTE PANEL 2019-07-01 12:40:00 [facility] 2019-07-01 12:40:00 Chadd Blair MD .GLOMERULAR FILTRATION RATE 2019-07-01 12:40:00 Chadd Blair MD CALCIUM LEVEL TOTAL 2019-07-01 12:40:00 Chadd Blair MD [facility] ALBUMIN LEVEL 2019-07-01 12:40:00 Chadd Blair MD ALKALINE PHOSPHATASE 2019-07-01 12:40:00 Chadd Blair MD Adams rson ALANINE AMINOTRANSFERASE 2019-07-01 12:40:00 Chadd Blair MD ASPARTATE AMINOTRANSFERASE 2019-07-01 12:40:00 Chadd Blair TOTAL PROTEIN 2019-07-01 12:40:00 Chadd Blair MD FRACTIONATED BILIRUBIN 2019-07-01 12:40:00 Chadd Blair MD COMPLETE BLOOD COUNT 2019-06-29 11:39:00 Olivia Abbott MD DIFFERENTIAL COMPREHENSIVE METABOLIC PANEL 2019-06-29 11:39:00 Olivia Abbott MD Results CBC 2019-06-29 11:39:00 Olivia Abbott MD MANUAL DIFFERENTIAL 2019-06-29 11:39:00 Olivia Abbott MD Adams rson GLUCOSE LEVEL 2019-06-29 11:39:00 Olivia Abbott MD BLOOD UREA NITROGEN 2019-06-29 11:39:00 Olivia Abbott MD Adams rson ELECTROLYTE PANEL 2019-06-29 11:39:00 Olivia Abbott MD Berry on SERUM CREATININE 2019-06-29 11:39:00 Olivia Abbott MD Anderso n .GLOMERULAR FILTRATION RATE 2019-06-29 11:39:00 Olivia Abbott MD CALCIUM LEVEL TOTAL 2019-06-29 11:39:00 Olivia Abbott MD Adams rson ALBUMIN LEVEL 2019-06-29 11:39:00 Olivia Abbott MD ALKALINE PHOSPHATASE 2019-06-29 11:39:00 Olivia Abbott MD And erson ALANINE AMINOTRANSFERASE 2019-06-29 11:39:00 Olivia Abbott MD ASPARTATE AMINOTRANSFERASE 2019-06-29 11:39:00 Olivia Abbott MD TOTAL PROTEIN 2019-06-29 11:39:00 Olivia Abbott MD FRACTIONATED BILIRUBIN 2019-06-29 11:39:00 Olivia Abbott MD COMPLETE BLOOD COUNT W/ 2019-06-24 12:57:00 Chadd Blair MD DIFFERENTIAL COMPREHENSIVE METABOLIC PANEL 2019-06-24 12:57:00 Anai Blair LACTATE DEHYDROGENASE 2019-06-24 12:57:00 Chadd Blair MD And erson MAGNESIUM LEVEL 2019-06-24 12:57:00 Chadd Blair MD PHOSPHORUS LEVEL 2019-06-24 12:57:00 Chadd Blair MD Results CBC 2019-06-24 12:57:00 Chadd Blair MD MANUAL DIFFERENTIAL 2019-06-24 12:57:00 Chadd Blair MD [facility] GLUCOSE LEVEL 2019-06-24 12:57:00 Chadd Blair MD BLOOD UREA NITROGEN 2019-06-24 12:57:00 Chadd Blair MD [facility] ELECTROLYTE PANEL 2019-06-24 12:57:00 [facility] SERUM CREAT[facility]INE 2019-06-24 12:57:00 Chadd Blair MD .GLOMERULAR FILTRATION RATE 2019-06-24 12:57:00 Chadd Blair MD CALCIUM LEVEL TOTAL 2019-06-24 12:57:00 Chadd Blair MD [facility] ALBUMIN LEVEL 2019-06-24 12:57:00 Chadd Blair MD ALKALINE PHOSPHATASE 2019-06-24 12:57:00 Chadd Blair MD Adams rson ALANINE AMINOTRANSFERASE 2019-06-24 12:57:00 Chadd Blair MD ASPARTATE AMINOTRANSFERASE 2019-06-24 12:57:00 Chadd Blair TOTAL PROTEIN 2019-06-24 12:57:00 Chadd Blair MD FRACTIONATED BILIRUBIN 2019-06-24 12:57:00 Chadd Blair MDson COMPLETE BLOOD COUNT W/ 2019-06-17 12:32:00 Chadd Blair MD nderson DIFFERENTIAL COMPREHENSIVE METABOLIC PANEL 2019-06-17 12:32:00 Anai Blair LACTATE DEHYDROGENASE 2019-06-17 12:32:00 Chadd Blair MD And erson MAGNESIUM LEVEL 2019-06-17 12:32:00 Chadd Blair MD PHOSPHORUS LEVEL 2019-06-17 12:32:00 Chadd Blair MD Results CBC 2019-06-17 12:32:00 Chadd lBair MD MANUAL DIFFERENTIAL 2019-06-17 12:32:00 [facility]add [facility] GLUCOSE LEVEL 2019-06-17 12:32:00 Chadd Blair MD BLOOD UREA NITROGEN 2019-06-17 12:32:00 Chadd Blair [facility] ELECTROLYTE PANEL 2019-06-17 12:32:00 Chadd Blair MD SERUM CREATININE 2019-06-17 12:32:00 Chadd Blair MD .GLOMERULAR FILTRATION RATE 2019-06-17 12:32:00 Chadd Blair MD CALCIUM LEVEL TOTAL 2019-06-17 12:32:00 Chadd Blair MD [facility] ALBUMIN LEVEL 2019-06-17 12:32:00 Chadd Blair MD ALKALINE PHOSPHATASE 2019-06-17 12:32:00 Chadd [facility] ALANINE AMINOTRANSFERASE 2019-06-17 12:32:00 Chadd Blair MD ASPARTATE AMINOTRANSFERASE 2019-06-17 12:32:00 Chadd Blair TOTAL PROTEIN 2019-06-17 12:32:00 Chadd Blair MD FRACTIONATED BILIRUBIN 2019-06-17 12:32:00 Chadd Blair MD derson URIC ACID 2019-06-15 15:34:00 Anca Seth MD COMPREHENSIVE METABOLIC PANEL 2019-06-15 15:34:00 Elaine Seth MD PHOSPHORUS LEVEL 2019-06-15 15:34:00 Anca Seth MD PROTEIN / CREATININE RATIO 2019-06-15 15:34:00 Anca Seth URINE URINALYSIS WITH MICROSCOPIC 2019-06-15 15:34:00 Anca Seth MD IF INDICATED MAGNESIUM LEVEL 2019-06-15 15:34:00 Anca Seth MD PTH INTACT 2019-06-15 15:34:00 Anca Seth MD GLUCOSE LEVEL 2019-06-15 15:34:00 Anca Seth MD BLOOD UREA NITROGEN 2019-06-15 15:34:00 Anca Seth MD [facility] ELECTROLYTE PANEL 2019-06-15 15:34:00 Anca Seth MD SERUM CREATININE 2019-06-15 15:34:00 Anca Seth MD .GLOMERULAR FILTRATION RATE 2019-06-15 15:34:00 WorkAnca jensen MD CALCIUM LEVEL TOTAL 2019-06-15 15:34:00 WorkAnca jensen MD Michael son ALBUMIN LEVEL 2019-06-15 15:34:00 Workmikey [facility] MD Hilario ALKALINE PHOSPHATASE 2019-06-15 15:34:00 Anca Seth MD Adams rson ALANINE AMINOTRANSFERASE 2019-06-15 15:34:00 Workmikey [facility] MD Hilario ASPARTATE AMINOTRANSFERASE 2019-06-15 15:34:00 Workmikey Bannerjimmy Hilario TOTAL PROTEIN 2019-06-15 15:34:00 Workmikey [facility] MD Hilario FRACTIONATED BILIRUBIN 2019-06-15 15:34:00 Rolo [facility] MD Gissell canadason COMPLETE BLOOD COUNT W/ 2019-06-10 14:02:00 Chadd Blair MD nderson DIFFERENTIAL COMPREHENSIVE METABOLIC PANEL 2019-06-10 14:02:00 Anai Blair LACTATE DEHYDROGENASE 2019-06-10 14:02:00 Chadd Blair MD And erson MAGNESIUM LEVEL 2019-06-10 14:02:00 Chadd Blair MD PHOSPHORUS LEVEL 2019-06-10 14:02:00 Chadd Blair MD Results CBC 2019-06-10 14:02:00 Chadd Blair MD MANUAL DIFFERENTIAL 2019-06-10 14:02:00 Chadd Blair MD [facility] GLUCOSE LEVEL 2019-06-10 14:02:00 Chadd Blair MD BLOOD UREA NITROGEN 2019-06-10 14:02:00 Chadd Blair MD [facility] ELECTROLYTE PANEL 2019-06-10 14:02:00 [facility] 2019-06-10 14:02:00 Chadd Blair MD .GLOMERULAR FILTRATION RATE 2019-06-10 14:02:00 Chadd Blair MD CALCIUM LEVEL TOTAL 2019-06-10 14:02:00 Chadd Blair MD [facility] ALBUMIN LEVEL 2019-06-10 14:02:00 Chadd Blair MD ALKALINE PHOSPHATASE 2019-06-10 14:02:00 Chadd Blair MD Adams rson ALANINE AMINOTRANSFERASE 2019-06-10 14:02:00 Chadd Blair MD ASPARTATE AMINOTRANSFERASE 2019-06-10 14:02:00 Chadd Blair TOTAL PROTEIN 2019-06-10 14:02:00 Chadd Blair MD FRACTIONATED BILIRUBIN 2019-06-10 14:02:00 Chadd Blair MD PETCT SUBSEQUENT TREATMENT 2019-05-01 14:46:51 Jovanni Palm MD STRATEGY POC GLUCOSE SCREEN 2019-05-01 13:29:00 Provider, David Lamas rsmarleny CARCINOEMBRYONIC ANTIGEN 2019-04-28 14:27:00 Jovanni Palm MD COMPLETE BLOOD COUNT W/ 2019-04-28 14:27:00 Chadd Blair MDrsmarleny DIFFERENTIAL COMPREHENSIVE METABOLIC PANEL 2019-04-28 14:27:00 Nubia Daniel MD Results CBC 2019-04-28 14:27:00 Chadd Blair MD MANUAL DIFFERENTIAL 2019-04-28 14:27:00 Chadd Blair MD GLUCOSE LEVEL 2019-04-28 14:27:00 Nubia Daniel MD BLOOD UREA NITROGEN 2019-04-28 14:27:00 Nubia Daniel MD ELECTROLYTE PANEL 2019-04-28 14:27:00 Nubia Daniel MD SERUM CREATININE 2019-04-28 14:27:00 Nubia Daniel MD .GLOMERULAR FILTRATION RATE 2019-04-28 14:27:00 Nubia Daniel MD CALCIUM LEVEL TOTAL 2019-04-28 14:27:00 Nubia Daniel MD [facility] ALBUMIN LEVEL 2019-04-28 14:27:00 Nubia Daniel MD ALKALINE PHOSPHATASE 2019-04-28 14:27:00 Nubia Daniel MD ALANINE AMINOTRANSFERASE 2019-04-28 14:27:00 Nubia Daniel MD ASPARTATE AMINOTRANSFERASE 2019-04-28 14:27:00 Nubia Daniel TOTAL PROTEIN 2019-04-28 14:27:00 Nubia Daniel MD FRACTIONATED BILIRUBIN 2019-04-28 14:27:00 Nubia Daniel MD COMPLETE BLOOD COUNT W/ 2019-04-14 15:44:00 Chadd Blair MD nderson DIFFERENTIAL Results CBC 2019-04-14 15:44:00 Chadd Blair MD Sulaiman MANUAL DIFFERENTIAL 2019-04-14 15:44:00 Chadd Blair MD Michael young COMPLETE BLOOD COUNT W/ 2019-03-31 12:58:00 Kera Sarabia MD DIFFERENTIAL Results CBC 2019-03-31 12:58:00 Kera Sarabia MD Anderso n MANUAL DIFFERENTIAL 2019-03-31 12:58:00 Kera Sarabia MD And erson CT CHEST ABDOMEN PELVIS W 2019-03-20 15:38:18 Jovanni Palm CONTRAST CARCINOEMBRYONIC ANTIGEN 2019-03-20 12:09:00 Jovanni Palm MD BLOOD UREA NITROGEN 2019-03-20 12:09:00 Jovanni Palm MDrson SERUM CREATININE 2019-03-20 12:09:00 Jovanni Palm MD Adams rson SERUM CREATININE 2019-03-20 12:09:00 Jovanni Palm MD Adams rson .GLOMERULAR FILTRATION RATE 2019-03-20 12:09:00 Jovanni Palm MD COMPREHENSIVE METABOLIC PANEL 2019-03-16 12:40:00 Nubia Daniel MD COMPLETE BLOOD COUNT 2019-03-16 12:40:00 Nubia Daniel MDrson DIFFERENTIAL GLUCOSE LEVEL 2019-03-16 12:40:00 Nubia Daniel MD BLOOD UREA NITROGEN 2019-03-16 12:40:00 Nubia Daniel MD Michael [facility] ELECTROLYTE PANEL 2019-03-16 12:40:00 Nubia Daniel MD Andshoshanao n SERUM CREATININE 2019-03-16 12:40:00 Nubia Daniel MD .GLOMERULAR FILTRATION RATE 2019-03-16 12:40:00 Nubia Daniel MD CALCIUM LEVEL TOTAL 2019-03-16 12:40:00 Nubia Daniel MD [facility] ALBUMIN LEVEL 2019-03-16 12:40:00 Nubia Daniel MD ALKALINE PHOSPHATASE 2019-03-16 12:40:00 Nubia Daniel MD ALANINE AMINOTRANSFERASE 2019-03-16 12:40:00 Nubia Daniel MD ASPARTATE AMINOTRANSFERASE 2019-03-16 12:40:00 Nubia Daniel TOTAL PROTEIN 2019-03-16 12:40:00 Nubia Daniel MD FRACTIONATED BILIRUBIN 2019-03-16 12:40:00 Nubia Daniel MDson Results CBC 2019-03-16 12:40:00 Nubia Daniel MD MANUAL DIFFERENTIAL 2019-03-16 12:40:00 Nubia Daniel MD COMPREHENSIVE METABOLIC PANEL 2019-02-18 12:19:00 Nubia Daniel MD COMPLETE BLOOD COUNT W/ 2019-02-18 12:19:00 Nubia Daniel MD DIFFERENTIAL GLUCOSE LEVEL 2019-02-18 12:19:00 Nubia Daniel MD BLOOD UREA NITROGEN 2019-02-18 12:19:00 Nubia Daniel MD ELECTROLYTE PANEL 2019-02-18 12:19:00 Nubia Daniel MD SERUM CREATININE 2019-02-18 12:19:00 Nubia Daniel MD .GLOMERULAR FILTRATION RATE 2019-02-18 12:19:00 Nubia Daniel MD CALCIUM LEVEL TOTAL 2019-02-18 12:19:00 Nubia Daniel MD Michaelines young ALBUMIN LEVEL 2019-02-18 12:19:00 Nubia Daniel MD ALKALINE PHOSPHATASE 2019-02-18 12:19:00 Nubia Daniel MD ALANINE AMINOTRANSFERASE 2019-02-18 12:19:00 Nubia Daniel MD ASPARTATE AMINOTRANSFERASE 2019-02-18 12:19:00 Nubia Daniel TOTAL PROTEIN 2019-02-18 12:19:00 Nubia Daniel MD FRACTIONATED BILIRUBIN 2019-02-18 12:19:00 Nubia Daniel MDson Results CBC 2019-02-18 12:19:00 Nubia Daniel MD MANUAL DIFFERENTIAL 2019-02-18 12:19:00 Nubia Daniel MD Michaelines young COMPLETE BLOOD COUNT W/ 2019-02-09 13:29:00 Chadd Blair MD DIFFERENTIAL Results CBC 2019-02-09 13:29:00 Chadd Blair MD MANUAL DIFFERENTIAL 2019-02-09 13:29:00 Chadd Blair MD Michael son COMPLETE BLOOD COUNT W/ 2019-02-06 15:53:00 MolGracie Balderas MD DIFFERENTIAL CARCINOEMBRYONIC ANTIGEN 2019-02-06 15:53:00 Gracie Aranda MD COMPREHENSIVE METABOLIC PANEL 2019-02-06 15:53:00 MolShilpa Balderas MD LACTATE DEHYDROGENASE 2019-02-06 15:53:00 Gracie Aranda MD derson MAGNESIUM LEVEL 2019-02-06 15:53:00 Gracie Aranda MD PHOSPHORUS LEVEL 2019-02-06 15:53:00 Gracie Aranda MD Andshoshanao n Results CBC 2019-02-06 15:53:00 Gracie Aranda MD MANUAL DIFFERENTIAL 2019-02-06 15:53:00 Gracie Aranda MD Adams rson GLUCOSE LEVEL 2019-02-06 15:53:00 Gracie Aranda MD BLOOD UREA NITROGEN 2019-02-06 15:53:00 Gracie Aranda MD Adams rson ELECTROLYTE PANEL 2019-02-06 15:53:00 Gracie Arandaers on SERUM CREATININE 2019-02-06 15:53:00 Gracie Aranda MD Andshoshanao n .GLOMERULAR FILTRATION RATE 2019-02-06 15:53:00 Gracie Aranda MD CALCIUM LEVEL TOTAL 2019-02-06 15:53:00 Gracie Aranda MD Adams rson ALBUMIN LEVEL 2019-02-06 15:53:00 Gracie Aranda MD ALKALINE PHOSPHATASE 2019-02-06 15:53:00 Gracie Aranda MD And ersmarleny ALANINE AMINOTRANSFERASE 2019-02-06 15:53:00 MolGracie Balderas MD ASPARTATE AMINOTRANSFERASE 2019-02-06 15:53:00 Gracie Aranda MD TOTAL PROTEIN 2019-02-06 15:53:00 Gracie Aranda MD FRACTIONATED BILIRUBIN 2019-02-06 15:53:00 Gracie Aranda MD Plan of Care Planned Activity Planned Date Details Comments Source Future Appointment 2020-02-15 07:00:00 Lam Richardson MD, [address], [place] [address] Future Appointment 2020-02-15 07:00:00 Lam Richardson MD, [address], [place] [address] Encounters Start End Encounter Admission Attending Care Care Encounter Source Date/Time Date/Time Type Type Clinicians Facility Department ID 2019-09-07 Outpatient SWATHI RICHARDSON [facility] [id number] 21:32:08 LAM thrasher 2019-10-12 2019-10-12 Outpatient SWATHI BLAIR [facility] [id number] 00:00:00 00:00:00 CHADD thrasher 2019-09-13 2019-09-13 Outpatient SWATHI BLAIR [facility] MDA [id number] 00:00:00 00:00:00 CHADD thrasher 2019-09-13 2019-09-13 Outpatient SWATHI OLIVAO, MDA MDA [id number] 00:00:00 00:00:00 ROBERT thrasher 2019-09-12 2019-09-12 Outpatient SWATHI BLAIR, MDA MDA [id number] 00:00:00 00:00:00 CHADD thrasher 2019-09-12 2019-09-12 Outpatient SWATHI OLIVAO, MDA MDA [id number] 00:00:00 00:00:00 ROBERT thrasher 2019-09-08 2019-09-08 Outpatient SWATHI MURPHY, MDA MDA [id number] 15:23:50 16:32:38 SE thrasher 2019-09-08 2019-09-08 Outpatient SWATHI BLAIR, MDA MDA [id number] 12:26:59 15:38:14 CHADD thrasher 2019-09-07 2019-09-07 Outpatient SWATHI BLAIR, MDA MDA [id number] MD 00:00:00 00:00:00 CHADD thrasher 2019-08-21 2019-08-21 Outpatient SWATHI RICHARDSON [facility] MDA [id number] 09:45:31 11:39:01 LAM thrasher 2019-08-20 2019-08-20 Outpatient EL ARPITA, JOVANNI VASQUEZ [facility] [id number] 14:37:47 14:46:00 Berry thrasher 2018-11-04 2018-11-04 [facility] [id number] 05:33:00 09:12:00 Encounter [id number] [facility] [id number] [facility] [id number] [address] ([facility]) 2018-11-04 2018-11-04 Orders Doctor ROBERT [id number] 00:00:00 00:00:00 Only Unassigned, BARBARA [id number] [facility] [address] [id number] 2018-10-20 2018-10-20 Office [facility] [id number] 09:24:45 11:21:31 Visit [place] [facility] [id number] [facility] [id number] CENTER AT [id number] [address] 2018-10-20 2018-10-20 Telephone [facility] [id number] 00:00:00 00:00:00 [facility] [id number] [facility] [id number] CENTER AT [id number] [address] 2017-01-23 2017-01-23 Orders Doctor ROBERT [id number] 00:00:00 00:00:00 Only Unassigned, BARBARA [id number] [facility] [address]686 [id number] Results Test Description Test Time Test Comments Results Result Comments Source Pathology Surgical Interpretation 2019-09-16 19:33:00 Test Item Value Reference Range Interpretation Comme nts Diagnosis b0ojpNXnXRUzgMI9RSNiRHKla8cei6FgxWVwwEWeWYonxLYpflFpcf71sHD4pF19HS8vYYSqXkS6BEQa xsL9Ldd2LAKaURZoiFQoT537p4jbl9jqpeWosLU3fCzyZFPnWGZhNKjrYUHjYvLyES8xY9kEXbzcCFPK HEHIRIjqEDcTVCLeJU4HLBamKEwRTPROA776FZZkmxd (test code boMT4TPJzKhymRhXmWPiocmH1PSPhHV9GRLPXUlXmRRIMA7VIARQDSGYABLCQCzIZZILBJHJKVRFIX1J MBuIEHc5BVWXVLAHHZFDLO49XPFTLBL2GMLQBCKjbNxZXOYMTHSIwFTraRGQfUoYwRSBIIOHCOQ7OWRB RLzSDICZXNsOYZqTUFV1RMZd0GWMqTbaAQddNJIBUJV = 34) 7PQJWQWEdLPGkJFK4GE7uKLQWQZ6tRYEbrTMINH8JyTnOQQRkEGHSwJGBCXD3vgKUpMLRHQE2UXJuVDu bBOOBOEZGWATvZWJ7iJCUVNZhJVCADBOWANQHYLVUKZwXYYRTdIODERL4RRMBWYZEXUTNlSLWswtCWea MeoM5qyO15DRSkrScijeKtmdAmt8orcyAbxuNqPPFtf zR2qhBcWPcpoxGofO1vETwyCB27dENsQAWvLPMvgiZJQNHDUCLtZPXOK0RvI2WGQTOkFVnAKF1KZITPW AbMPGjPKdE6DU7pUTDGSO9BRRVCQTAIKAYJHljMZuEITAJTQ7SEIS6UQlvTBs2bhRGtWMRXDK0MEYMMD VXyBTZQUK0yBH6UWJXjI9mPCA3FJBFJEZFPLUJuWRWL C9StO4YEGGYxXXSESEJMGIRoYX7xQJpPIYTFPOYPDZ9WFLRLNWYBZyQBVotLTkPCCGLOW2YOCR4EJanY SqSmRUQgvgTUKCTpKD8cnldvkmSlhtKvfsYwWS4tEJH2mW6vUfeuWTOgS2Ypdst7mL2lRERwgUGoim3n xrUftlN1qDHpb0P8SHPyCIyxg7N2yENcFLBqa7VuVBn bzIm8HQ8kYADvC4Y2N1WfVUldOSJwEQNkojTfAVoojA4mSAJyezNxvXIaqTOgxQVpOyDif7zkPThyFSf cAV31iILiFDCtPSKlvoYHoaOboX6ixIKbc6RbbcXrUPMydOcdjYJuAklnSUSeoJxzCICrJGtgqV4fBHK wXHBhcn0= Gross a5lvsXNxAAHcd3zpWOIhYeNePDRAw7gbh950uUTsPIlmHiOwEjI4hMQyDNLrhWXci2B2DRocjDUbMtHS dfvtcKt7o0evI4ywvw7jSU7kDsDnCKCtXXPzIWKlzeHhIXUgqNTjGP4tdiLFe99bmwt0k9piQAmvtK8h QKIqJPLgcBHeg6P5UFdjqFCbZEKDn5JduJOnEA7hdel Descriptio 4p9tvFAtny4civ9PyDlXdRQQkSORsOZNiwxOyZOZpuPXnGF3eqhPyyxi5p7utSVYaMb2hCMSaovxtC2p bveEbaONqXyMckQAuH815wrywapt9q5ltXDTqIy3puJdxP8mjmmRktFEuAoZjrQLwJHUjaQLDqONidnH gaUB4bKppBrShDJYxu87rrfhoN3wckkKxtRQtSrUzdY n (test ZjP1skQr3tV129CDXrYVoxw0tgq5TqUpXyDXXzKUJbHCDzmnJsGZCjI45xNYBKB838WBKkVWUmWVRti1 tun0nfF3tgovOokAVhIhKlqLCnWUVrGVq9xB5Wq5avr4moyiXisNL7KVQgZWDqR5PwWH0dKTRlkTBnU7 xtYLQlLRtwzdPfrcF5HWAdwTKzCRbqneZrEfOuQ0YsP code = S7kUQsfmAXxZjG1QCLaHPW1AYezEDJtWUglKht6CBB8G3rdVGE2A7qmrpTpjvTlGMNmmCQ4RlcgxlLnZ ktmD0NmPY33WRrucVEpNxd1YLDfGZp8OShoQUIfPYTrEko5DWj1U5kyFCVyCAIdD9WkXX7tUVKaYlg2C FRnOEjfabCiYZV8WXlpKDLaCLL6VJXofJMpOed7OFAl 1426844564 PCP2N2ztziTwxbP1N2sqyFIuTECsN2dwNTZyAXnoE7EgSV2kVXdoInd0MYB8QRmrybKvGVl3JOdrRMQd TCq8FLJkaLSjZoD3OIDsINV2PRymozLyrrQ2BNxonAUoYBofV8ifVFRaTFolD7UxGG6cOMamYql9TATg VsfmzuGaPqJdYGdyWSDqJdXnDORueQPiIeW0LSJpKNM ) hMTgsqzXrfqOzONsszFLkJzM6I9oiYGIiJSLhP7RiLE9fBVXfUnf3AKB5BUnissBuTIopcdVyywNdTof 4XAA2SBq1Tderp9X9wTNwvABgnFdotbUtdZIvMEstRgZtA429TCRxPVesVVFdmfcfFvh5y1eoXiLxWCR xoD0jONX2qAebxvBgzIPpLLzfJtA6V631KND3YYiyYR AtdwzlNHm5w6dhHfGoJQQdmS9iKNU9vY9HSjidQKLqtvvhFFp0YChhSZYpnkfoJtF7GNeqZLSobPq6PY wlZRPdvwV5PjguWGFepTdrZKhjXSBjBgqhNXmtXWFqXYK0UwWrEFYqg0Ghefh5SiNiTmRyJUKYVvxruO FkOHP0XLN0WnKgADRqNoajGHXuLL3hhUkpgEc5zSrxA YZcxpO8kEWsIIjdh2eqFGC0c3axrdauUUYuSCqpXu4drHOkhJjuSoPyESIgYCb8kY15TNCjpA1jzPYmV Kf3VKTruzXwtBdwjE0fQuZdQLXZYuZRamWkEUDjsrXiHJZvfdLvWJ8gywbimuC3pY2isefav2klT2ebW YcmmzhwYXmqlFUyKRotUIMxlRInWX3eiI9fBELtn9Lb ZF3tPOOSOkLbVIG0BFxjTTYkVQDcFiOvaQFiEgbykWWnCgEvG30zg1jzipAodKoeoBLpWU8ajPExxJOo WIfxyEqdXKWqoI8liDXbhU4iNkOpuPi4M5jzZSCtuLT9LRCvhAGmyfKiGSTwx1RabEIhp8SxxALdMFC3 PEygAvAzlP4eZdMsbYPbAEOhxrXKcXGkKCWeltVfBFL jLEP2KHHtFNIopGXcVzEbW1CfcQndNEDkbsGrXEYbx59oYWVtcPqbVGV7fKCjhELfCJRnYImjvLaps6D ohfYvmetoGNYiGOEpdKG2vSNey7kowbB1sMwsgYAcrcPtNvzzE47eZhGmcQQ9jKOiV6rem3XvbYYrrPO jtqzfciNjnl1qECHbONUsqZ0eDP1sDZEvJTXjbVZjmm 7cDAYhXRKtvK2xEKY2ZLngoJKhIZvqySjlJaVhuEfyPQxipG4tMOLsGWCwwIKbmW4yjmTvlzEhflYjkx KqaTPfpDUyiOP1URNjSQRbcvmxFRUtOY3CEKBALNK8YQJokVNtWU8eHOJfJLF0lMTmbX4eWOaezJWjv5 OidFviXW4wntkzxkgsZ9IvyhpnCKDbQMShsPXbwiMzk dqggrSrQOhuXU5sIYIyXSHeIFFztJ8bFOCxpuQWRPXWUE5UANIDIIE1CWDsFNZlESLbriUiEOZnaLhoe S7xSLWoKCDrBQ51gttbJSChQG1iTCgbkGU2zPOoTSesfqSqxKDeDGMfg152ZCKjYOZzLUMaeCBWKUIvS YByzfMuqbPnuCBayBIwbXB4KNLos1YyzAmiERQsxWIv vircQgZjjVPmfU5bpnowGaNykFNjCLPmppNgFTJhAP3vCRrxwK9vfQNpEDTrbyqdjj78SHH7ZCMug4Zi N2EtFAsSYUNca4WgW4ZlPTuoiKHnxyxslrWkLUUrel9oaCWpuTj1 Disclaimer n3twcVDkWBHyxDNbNiXhYCSeDMXyt8ciNLSrhTQeRwKrVlGwQeArJpjayNQfVJBjMdDsq3yem267fQSo u1idORVzOaU8aGTcOGPphUEbT592YRPeVIypx8doz6OzJIQbeBXcw6W1BDWBupdykOk5pNozO74ig0W6 HzytG7dpWRUqSTXvC7LmUW6aRBImOry0AVE9IVO7GUV (test code mGBQaP8MzHX5bIJMgkWMiCNg8v5blwHviXJQdSRA8a4ugFGmnbkScLK4gqq1qfNa0q4gmirCxBWXfPWN pqSJFVSUnG2YzcHkqNn9dpMy4fQrmWdwsOKU9Lqv2JD9hae30yxi9eHvkXMOrzjfyBoV6PAykYAPxgmr pFTt6EOjvSSCsfKM7RTYqoPYpW5AcGVJoWL7grgn5XS = 9844) J3DSznXZOyUpQ9XJUuzAWkTUWdbPyyCGxtt895TGK9FnDtNE5xM1Ydy3G2qF6hiINrMDQxfMJzPiGkGW Ibdv1snRLgGOrkq0FyICN1inB1sFAnuFFhJIUrVJ23Iysql7TySotnXSB0DPGwomQou7Ihh4nfWpLmws ZqM0dbT1LoWWIjIDKmQLUbHjCrbyMaq9Ncu5VrjWXvr Gv1v9ygUYAdWYMnyLvni1wyAZJ1QKSkX5X6jONlk0oqECbkGXHxoHX8hsY8XYVppQUsX7VrtN8fIKBdX J0oivp4m0whDLB0GEcyVGQdMrV8pfF9LIDabEBrYQOuaBycBMgpv637YTX4FwBwROTze1KdF6OabPjhS 27vnWnlC44jVQBcbQwjcG2umMdzhY4lMtQoQfJsSZzv lXvtmNGxdtscQJdoswU0WSmwoyixWEXcVTviQ0frHvOrFBNqjLnoXFiwn1UaDUOmOTFaQggfmmG2CVDE h15uPVKbz8NuQOAbdQ3gmFUjOZkcayTiiCV2UOpofeRyOcZdfhYbKMQopW1gWKIuSW7sOPCopkPcif2f gbXwYDVyANXuN4IzbwsixDwryyPhMEEgqm0tcqFsSHN 0SCVRCP2ASRLgBUOtz15iGOGxqMrtqF7aaFRrudIcQTWqo3EjrH7qeLTYSDDzH1kjKK3zZCfrz4YftWU arXWyhSB9CODhr4LiPoMgeaMikCLnqPQzY9CuvOwhZ4ieSKBsYVKxhbEezGRym5EcSRPsaGA2cXByNS2 OXfJOl00xYVSkGSLTbvVeXKGdxLupeAN8rdI6bY9sWx CDJvNscRMroJJoVwlmZGBzp320wr5nooB6BYImCBWntxvzp1EjSDYuNMEuvU91DTDbGLJozj1ngvwllY EtrzXjP0Ftuoa1wV6xZTMlDNhcPMBhXWIsBeGtmSVvQaIxTuCidAdcpQcjKUvdYcHfCCVdBIasO1rePm FcZnMyMlxwYXJ9 MD HilarioTMP Interpretation Antibody Screen [id number] 11:32:29 Test Item Value Reference Range Interpretation Comments TMP Auto Neg At the present ABSC Interp time, patient (test code = plasma shows no ____DAMIEN GUSMAN MD - 37) evidence of RBC [id number] d by: DAMIEN alloantibodies. MD Tari BELTRAN [id number] D ate/Time: 09.15.2019 6:32 AM CDT Transcribed Jesse e/Time: 09.15.2019 6:32 AM CDTElectronical ly Signed By: MD Tari QUINTANILLA [id number] on 09.14 6:32 AM C MD HilarioAntibody [id number] 10:06:24 Test Item Value Reference Range Interpretation Comments ABSC. (test code = 890-4) Negative ABSC MD HilarioJlwmllhiJODFu5974-51-45 10:06:23 Test Item Value Reference Range Interpretation Comments ABORh. (test code = 882-1) O POS MD HilarioClot Expiration [id number] 10:06:20 Test Item Value Reference Range Interpretation Comments T & S Expiration (test code = 09/18/2019 5318) MD HilarioCOVID-19 (SARS-CoV-2) PCR-Asymptomatic [id number] 20:30:47 Test Item Value Reference Range Interpretation Comments COVID19 (SARS Not Detected Not Detected This test is a CoV-2) Result qualitative (test code = reverse-transcr iptase 41659-7) polymerase betty n reaction (RT-PC R) developed for t he [employer] 680 0 system and inte nded for the detecti on of SARS CoV-2 RNA in human nasophary ngeal specimens from patients who me et COVID-19 clinic al and/or epidemiological criteria. This assay has been approv ed by the FDA for use only under Emergency Use Authorization ( EUA) in laboratories that have been CLIA-certified to perform moderate-comple xity and high-comple xity tests. The performance characteristics of this assay were verified by the [facility] at [facility]. Results must be interpreted within the context of all relevant clinic al and laboratory find ings and should not form the sole basis for a diagnosis or treatment decision.Index Clerk al controls are in cluded to assess for possible amplification inhibitors. If inhibition is detected, testi ng is repeated and if inhibition is confirmed the specimen is res ulted as "Invalid". "Inconclusive" results are due to partial amplifi cation of SARS-CoV-2 targets. When t his occurs, results are confirmed by re peat testing before issuing an "Inconclusive" result. When a n "Invalid" or "Inconclusive" results occur, it is recommended to wait a minimum of 3 da ys before submitti ng a new specimen fo r testing if clin ically indicated. 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 (test code = 882-1) O POS MD HilarioGlomerular Filtration [id number] 16:19:04 Test Item Value Reference Range Interpretation Comments eGFR-AA (test code = 24 >=60 mL/min/1.73 L Nor mal eGFR: >= 60 8062) sq. m mL/min/1.73 m2N ote: The eGFR is jean-paul culated using the CKD-E PI equation. The e GFR declines with a ge. eGFR <60 mL/min /1.73 m2 is considere d as "decreased". Th is equation should only be used for pat ients 18 and older. According to th e National Kid[employer]'s dney Disease Outcome Quality Initiat angel (KDOQI) classif ication and 2011 Kidney Disease Improvi ng Global Outcomes (KDIGO) Clinica l Practice Guidel ine, the stage of CK D should be categ orized based on estima gloria GFR. Stage Desc ription GFR mL/mi n/1.73 m21 Normal or h igh GFR >=902 Mildly decreased GFR 60-893a M ildly to moderately decreased GFR 45-593b Moderat gordon to severely decrea sed GFR 30-444 Kim rely decreased GFR 15-295 Kidney f ailure <15 eGFR-ELLIS (test code = 20 >=60 mL/min/1.73 L No rmal eGFR: >= 60 8063) sq. m mL/min/1.73 m2N ote: The eGFR is jean-paul culated using the CKD-E PI equation. The e GFR declines with a ge. eGFR <60 mL/min /1.73 m2 is considere d as "decreased". Th is equation should only be used for pat ients 18 and older. According to th e National Kid[employer]'s dney Disease Outcome Quality Initiat angel (KDOQI) classif ication and 2012 Kidney Disease Improvi ng Global Outcomes (KDIGO) Clinica l Practice Guidel ine, the stage of CK D should be categ orized based on estima gloria GFR. Stage Desc ription GFR mL/mi n/1.73 m21 Normal or h igh GFR >=902 Mildly decreased GFR 60-893a M ildly to moderately decreased GFR 45-593b Moderat gordon to severely decrea sed GFR 30-444 Kim rely decreased GFR 15-295 Kidney f ailure <15 Lab Interpretation Abnormal (test code = 63993-3) MD Hilario.Serum [id number] 16:19:03 Test Item Value Reference Range Interpretation Comments Creatinine (test code = 5399) 2.87 mg/dL 0.67-1.17 H Lab Interpretation (test code = Abnormal 70053-1) MD [id number] 16:19:02 Test Item Value Reference Range Interpretation Comments BUN (test code = 5055) 59 mg/dL 6-23 H Lab Interpretation (test code = Abnormal 81731-4) MD HilarioGlucose, [id number] 16:19:01 Test Item Value Reference Range Interpretation Comments Glucose Random (test 96 mg/dL 70-199 Effecti ve 09/28/15, the code = 9360) glucose referen ce intervals have been updated based o n [employer] joey delines (Standards of M edical Care in Diabete s 2016. Diabetes Care 2 016; 39: S13-S22).Fastin g blood glucose:Normal: 70 99 mg/dLImpaire d fasting glucose (increa sed risk for diabetes or pre-diabetes): 100 125 mg/dLDiabet es mellitus: >/=1 26 mg/dL Random blood glucose:Normal: 70 199 mg/dLNote: Random glucose >100 mg /dL is associated with increased risk for diabetes MD HilarioElectrolyte [id number] 16:19:00 Test Item Value Reference Range Interpretation Comments Sodium Lvl (test code = 7355) 139 136- 145 mEq/L Potassium Lvl (test code = 6854) 4.4 3.5- 5.1 mEq/L Chloride (test code = 5279) 103 98- 107 mEq/L CO2 (test code = 5227) 22 22- 29 mEq/L Anion Gap (test code = 9325) 14 4- 14 mEq/L MD HilarioGaxoddjpFwtyiswinvkq4062-48-24 15:58:36 Test Item Value Reference Range Interpretation Comments Neutrophil % (test code = 71.7 % 42-66 H 64917-2) Lymphocyte % (test code = 13.2 % 24-44 L 737-7) Monocyte % (test code = 10.6 % 2-7 H 744-3) Eosinophil % (test code = 3.1 % 1-4 713-8) Basophil % (test code = 1.1 % 0-1 H 707-0) IGRE % (test code = 0.3 % 0-0.4 IGRE % c ount 92386-1) includes Metamyelocytes, Myelocytes, and Promyelocytes. Neutrophil Abs (test code 4.66 K/uL 1.7-7.3 = 753-4) Lymphocyte Abs (test code 0.86 K/uL 1-4.8 L = 732-8) Monocyte Abs (test code = 0.69 K/uL 0.08-0.7 743-5) Eosinophil Abs (test code 0.20 K/uL 0.04-0.4 = 712-0) Basophil Abs (test code = 0.07 K/uL 0-0.1 705-4) IG Abs (test code = 0.02 K/uL 0-0.04 31670-6) Lab Interpretation (test Abnormal code = 95098-0) MD Hilario.[id number] 15:58:34 Test Item Value Reference Range Interpretation Comments WBC (test code = 6.5 K/uL 4-11 6690-2) RBC (test code = 789-8) 4.29 4.50- 6.00 M/uL L Hgb (test code = 718-7) 14.0 14.0- 18.0 gm/dL Hct (test code = 41.7 % 40-54 4544-3) MPV (test code = 787-2) 11.4 fL 4-10.4 H MCH (test code = 785-6) 32.6 pg 27-31 H MCHC (test code = 33.6 31.0- 36.0 gm/dL 786-4) RDW-SD (test code = 52.2 fL 35.1-46.3 H 92589-2) RDW-CV (test code = 14.5 % 12-15.5 788-0) Platelet count (test 177 K/uL 140-440 code = 777-3) INRBC (test code = 0.0 % <=0.0 The INRBC (instrument 5974) NRBC) value ref lects the enumeration of nucleated red b lood cells contained in a 200uL sampleof whole blood analyzed by the instrument. Thi s value maydiffer from the NRBC value reported in a m anual differential,wh ich is based on a 100 cell differential. Lab Interpretation Abnormal (test code = 85779-6) MD HilarioCT Chest Abdomen Pelvis with [id number] 13:42:00 1. Marked decrease in the vascularity of the right inguinal metastatic lymph node.2. Incidental findings and post treatment changes as above. Interface, Radiology Results In - 08/21/2019 8:44 AM CDTFULL RESULT:Examination: CT CHEST ABDOMEN PELVIS W CONTRAST, 08/20/2019 5:47 PMClinical History: Cancer of overlapping sites of rectum, anus and anal canalIndication: Restaging - Assessment pre-operative, oncologic surveillanceComparison: CT chest, abdomen and pelvis dated 03/20/2019 and PET/CT dated 05/01/2019Technique: CT of the chest, abdomen, and pelvis was performed with intravenous contrast.Findings: CT thorax:Bilateral, peripheral distribution of chronic interstitial lung disease and right lung honeycomb changes again seen without lung mass or consolidation. No significant mediastinal, hilar oraxillary lymphadenopathy. Atherosclerotic changes of the abdominal aorta and its branches. The heartand great vessels are normal. No pleural or pericardial effusion. The trachea and bilateral major air ways are unremarkable. 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 No significant mesenteric, retroperitoneal or pelvic lymphadenopathy. There is no ascites.Stable hepatic cysts and a small splenic hemangioma (series 6, image 116). Incidental cholelithiasis. The pancreas and both adrenals are normal. Bilateral renal cysts and diffuse atrophy of the left kidney seen. The stomach and small bowel loops are normal. Incidental colonic diverticulosis. The urinary bladder is normal. The prostate measures 4.4 x 3.3 cm. 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 Atherosclerotic changes of the abdominal aorta and its branches. Multilevel degenerative changes of the visualized axial skeleton.IMPRESSION:1. Marked decrease in the vascularity of the right inguinal metastatic lymph node.2. Incidental findings and post treatment changes as above.MD [id number] 20:46:52 Test Item Value Reference Range Interpretation Comments CEA (test code = 5203) 5.6 ng/mL <=3.8 H Refer ence Ranges: Smoker: 0.0-5. 5 Lab Interpretation (test Abnormal code = 85356-8) MD HilarioUric [id number] 16:23:55 Test Item Value Reference Range Interpretation Comments Uric Acid (test code = 7955) 5.9 mg/dL 3.4-7 MD HilarioProtein/Creatinine Ratio [id number] 16:22:54 Test Item Value Reference Range Interpretation Comments UTP Ran (test code = 14 mg/dL Normal range not 7922) available for collections les s than 24 hours in dur ation. U Creatinine (test 127.6 mg/dL 40-278 The refer ence range code = 7725) listed is for f irst morning urine collection. U Prot/Creat (test 0.11 Normal ra nge not code = 7805) available for collections les s than 24 hoursin dura tion. MD HilarioPTH [id number] 16:20:53 Test Item Value Reference Range Interpretation Comments PTH Intact (test code = 6769) 45.6 pg/mL 15-65 MD HilarioUrinalysis w/Microscopic if [id number] 16:00:11 Test Item Value Reference Range Interpretation Comments UA Color (test code Yellow Yellow = 7877) UA Appear (test code Clear Clear = 7868) UA Glucose (test NEG NEG mg/dL code = 7881) UA Bili (test code = NEG NEG 7871) UA Ketones (test NEG NEG mg/dL code = 7884) UA Spec Grav (test 1.021 1.002-1.035 code = 7894) UA Blood (test code NEG NEG = 7872) UA pH (test code = 6.0 4.5-8.0 7909) UA Protein (test NEG NEG mg/dL code = 7890) UA Urobilinogen NEG NEG (test code = 7903) UA Nitrite (test NEG NEG code = 7888) UA Leuk Est (test NEG NEG code = 7886) UA Comment (test See Comment No microsco pic exam code = 8512) performed, physiochemical findings are nargis HilarioPETCT Subsequent Treatment [id number] 15:15:53More focal diffuse activity in the gastric mucosa may represent an area of inflammation and can be evaluated by endoscopy if clinically indicated. The right inguinal adenopathy does not demonstrate activity. No other sites of progressive FDG avid disease identified. Interface, Radiology Results In -05/01/2019 9:18 AM CSTFULL RESULT:Examination: FDG PET/CT, 05/01/2019 8:46 AMClinical History: 78-year-old male patient with overlapping cancer the rectum and anus and anal canal.Indication: Restaging for subsequent treatment strategy.Comparison: CT chest abdomen and pelvis 03/20/2019.Technique: F-18 fluorodeoxyglucose (FDG) 9.9 mCi was administered intravenously via left antecubital vein. To allow for distribution and uptake of radiotracer, the patient was asked to rest quietly for approximately 60-90 minutes. PET/CT imaging was performed from the vertex to mid thigh. Serum blood glucose at the time of the injection was 86 mg/dL. CT scanning was done for attenuation correction, image registration, and diagnosis with scan parameters optimized to minimize radiation exposure to the patient. SUV measurements are reported as maximum SUV based on body weight unless otherwise specified.Findings: Headand Neck: No hypermetabolic lesions seen in the brain. Sinuses are well-aerated. There are no enlarged FDG avid nodes seen in the neck or supraclavicular regions. No abnormal activity seen in the thyroid gland.Chest: A left chest port catheter terminates in the cavoatrial junction.There are no enlarged FDG avid nodes seen in the mediastinal, hilar, or axillary michael regions. No new suspicious FDG avid pulmonary nodules identified. No pleural or pericardial effusion is seen. Coronary artery calcification is noted.Abdomen and Pelvis: Focal activity is seen along the gastric mucosa posteriorly along the greater curvature just distal to the GE junction on image 135 with a maximum SUV of 8.0.Normal FDGactivity is seen in the liver, spleen, adrenals, and pancreas. Cholelithiasis is noted with no abnormal activity in the gallbladder. Normal tracer excretion is seen in both kidneys. There are no enlarged FDG avid nodes seen in the abdominal, pelvic, or inguinal michael regions. A stable right inguinal node measuring 1.3 cm on image 244 does not demonstrate activity above background levels has a maximumSUV of 2.0.No FDG avid nodes are seen elsewhere in the abdominal, or pelvic michael regions.Musculoskeletal: No FDG avid osseous metastasis identified within the scanned skeletal structures.IMPRESSION:More focal diffuse activity in the gastric mucosa may represent an area of inflammation and can be evaluated by endoscopy if clinically indicated.The right inguinal adenopathy does not demonstrate activity.No other sites of progressive FDG avid disease identified. [facility] Glucose [id number] 13:44:41 Test Item Value Reference Range Interpretation Comments POC Glucose (test 86 mg/dL 70-99 Capillary blood samples, code = 63636-0) e.tina. obtaine d by aleena liu y have inaccurate resu lts in patients with d ecreased peripheral bloo d flow. PO Sample Type (test Venous code = 9554) MD Hilario
[2020-02-01 08:50] LABS: Absolute Lymphocytes (CBC) 0.6 K/uL (0.7-4.9); Basophils % 0.5 % (0-1.3); Hematocrit 41.7 % (39.6-49.0); Lymphocytes % 6.9 % (15.3-44.8); MPV 10.7 fL (7.6-11.3); RBC Red Blood Cell Count 4.47 M/uL (4.33-5.43)
[2020-02-01 08:52] LABS: Protime INR 1.11
--- NOTE | 2020-02-01 09:01 | RAD REPORT ---
EXAM DESCRIPTION: CT - Abdomen Pelvis Wo Contrast - 02/01/2020 8:43 am CLINICAL HISTORY: LLQ abd pain;Abd pain Patient describes left flank pain for several days. Patient provides rectal cancer history that is no t otherwise specified. COMPARISON: No comparisons TECHNIQUE: Axial [address] imaging of the abdomen and pelvis was performed without IV contrast. No IV contrast was given because of allergy, abnormal renal function, patient refusal or physician re quest. No oral contrast administered. All CT scans are performed using dose optimization technique as appropriate and may include automated exposure control or mA/KV adjustment according to patient size. FINDINGS: No suspicious findings in the lung bases. Liver is grossly abnormal. Liver size is upper normal. There are numerous variably sized low-density masses scattered throughout the hepatic parenchyma. This is a pattern typical for liver metastatic di sease. No splenic abnormality seen. No acute pancreatic process seen. There is subtle fullness in the head o f the pancreas. Pancreatic tissue is isodense throughout with no definable mass. At least 1 small gal lstone is present. Gallbladder is contracted. This accentuates wall thickness. No biliary tree dilata tion. No hydronephrosis or suspicious renal mass. Left kidney is smaller than the right. There is symmetric bilateral perinephric stranding. No significant adrenal finding. Isodense renal masses and pyeloneph ritis cannot be excluded in the absence of IV contrast. Urinary bladder is contracted. No gross evide nce for a bladder mass. Prostate gland is normal size. No gastric wall thickening or mass identified. No acute small bowel finding. Sigmoid diverticulosis i s present without diverticulitis. Rectum is tortuous which limits ability to accurately assess rectal wall thickness. No gross evidence for a colon mass. No free air, free fluid or inflammatory stranding. Fat filled left inguinal hernia is present. Abnormal lymphadenopathy is present. A 1.8 x 2.4 centimeter abnormal lymph node is present adjacent t o the right side margin of the esophagus at the GE junction. Patient has peripancreatic and periporta l lymphadenopathy. There are numerous periaortic lymph nodes. Along the left lateral margin of the ce liac artery there is a 1.4 x 1.9 centimeter lymph node. Along the posteroinferior margin of the left renal vein there is a 2.0 x 1.9 centimeter lymph node (image 29/90). Left periaortic lymph node (imag e 36/90) measures 1.8 x 2.3 cm. A right side external iliac chain lymph node is present measuring 3.1 x 1.9 cm (image 66/90). Multiple additional lymph nodes are present. Disc and bone degenerative changes are present. No clearly pathologic bone process identified. Dense vascular calcifications are present. Infrarenal abdominal aorta measures a maximum 2.3 AP by 2.3 cm T R. IMPRESSION: Grossly abnormal liver with multiple low-density lesions almost certainly metastatic dis ease. Extensive abnormal lymphadenopathy in the abdomen and pelvis as detailed. Accounting Reconciliation Clerk lymph node m easurements were noted for any subsequent monitoring. Patient gives a history of rectal cancer does not further specified. No gross rectal or colon abnorma lity evident. Full assessment is limited is the absence of IV contrast.
[2020-02-01 09:02] LABS: Albumin 3.5 g/dL (3.4-5.0); Bilirubin Direct 0.1 mg/dL (0-0.2); Bilirubin Total 0.9 mg/dL (0.2-1.0); Potassium 3.9 mmol/L (3.5-5.1); Protein, Total 7.7 g/dL (6.4-8.2)
--- NOTE | 2020-02-01 09:34 | EDPHYS ---
Physician Documentation [facility] Name: Azeem Mclaughlin III Age: 79 yrs Sex: Male : 1940 Arrival Date: 02/01/2020 Time: 07:54 Bed 2 Private MD: ED Physician Aniket Robins HPI: 01/31 08:14 This 79 yrs old Male presents to ER via Ambulatory with complaints of rn Abdominal Pain, Flank Pain. 08:14 The patient presents with abdominal pain in the left lower quadrant. Onset: The rn symptoms/episode began/occurred 4 day(s) ago. The symptoms do not radiate. Associated signs and symptoms: Pertinent positives: anorexia, diarrhea, Pertinent negatives: blood in stools, fever, hematuria. The symptoms are described as crampy, intermittent, sharp. Modifying factors: The symptoms are alleviated by nothing, the symptoms are aggravated by movement, touching the area. Severity of pain: At its worst the pain was moderate in the emergency department the pain is unchanged. The patient has experienced a previous episode. The patient has not recently seen a physician. Historical: - Allergies: 08:04 No Known Allergies; ss - PMHx: 08:04 Rectal CA; Hypertension; Gout; ss - PSHx: 08:04 cardiac stents; ss - Immunization history:: Adult Immunizations up to date. - Social history:: Smoking status: Patient/guardian denies using tobacco, but has a distant history of tobacco abuse. - Family history:: not pertinent. - Hospitalizations: : No recent hospitalization is reported. ROS: 08:14 Constitutional: Negative for fever, chills, and weight loss, Eyes: Negative for injury, rn pain, redness, and discharge, Cardiovascular: Negative for chest pain, palpitations, and edema, Respiratory: Negative for shortness of breath, cough, wheezing, and pleuritic chest pain, Abdomen/GI: + abd pain and diarrhea Back: Negative for injury and pain, : Negative for injury, bleeding, discharge, and swelling, MS/Extremity: Negative for injury and deformity, Skin: Negative for injury, rash, and discoloration, Neuro: Negative for headache, weakness, numbness, tingling, and seizure. Exam: 08:14 Constitutional: This is a well developed, well nourished patient who is awake, alert, rn and in no acute distress. Ambulatory to room Head/Face: Normocephalic, atraumatic. ENT: Mucous membranes moist. Cardiovascular: Regular rate and rhythm. No pulse deficits. Respiratory: No increased work of breathing, no retractions or nasal flaring. Abdomen/GI: Soft, + LLQ tenderness, no rebound Skin: Warm, dry with normal turgor. Normal color with no rashes, no lesions, and no evidence of cellulitis. MS/ Extremity: Pulses equal, no cyanosis. Neurovascular intact. Full, normal range of motion. Equal circumference. Neuro: Awake and alert, GCS 15, oriented to person, place, time, and situation. Cranial nerves II-XII grossly intact. Motor strength 5/5 in all extremities. Sensory grossly intact. Cerebellar exam normal. Normal gait. Vital Signs: 08:00 BP 132 / 79; Pulse 66; Resp 16; Temp 97.4(TE); Pulse Ox 100% on R/A; Weight 68.04 kg; ss Height 5 ft. 8 in. (172.72 cm); Pain 7/10; 09:26 BP 136 / 65; Pulse 71; Resp 16; Pulse Ox 98% ; sv 08:00 Body Mass Index 22.81 (68.04 kg, 172.72 cm) ss MDM: 08:06 Patient medically screened. rn 09:31 Differential diagnosis: bowel obstruction, diverticulitis, non-specific abd pain, rn cancer, metastatic cancer. Data reviewed: vital signs, nurses notes, lab test result(s), radiologic studies, CT scan, and as a result, I will discharge patient. Counseling: I had a detailed discussion with the patient and/or guardian regarding: the historical points, exam findings, and any diagnostic results supporting the discharge/admit diagnosis, lab results, radiology results, the need for outpatient follow up, to return to the emergency department if symptoms worsen or persist or if there are any questions or concerns that arise at home. Special discussion: Based on the patient's Hx, exam, and Dx evaluation, there is no indication for emergent surgery or inpatient Tx. It is understood by the patient/guardian that if the Sx's persist or worsen they need to return immediately for re-evaluation. I discussed with the patient/guardian in detail that at this point there is no indication for admission to the hospital. It is understood, however, that if the symptoms persist or worsen the patient needs to return immediately for re-evaluation. Based on the history and exam findings, there is no indication for further emergent testing or inpatient evaluation. I discussed with the patient/guardian the need to see the security management specialist/oncologist for further evaluation of the symptoms. ED course: Pt with CT showing likely recurrence of cancer with metastases, is seen at [facility], states has appt in 2 days with his oncologist, that they suspected cancer was returning. Reports has "enough pain medicine to fill a closet", so declines pain medication. Nothing that can be treated with abx, will dc home with return precautions and oncology f/u. . 01/31 08:07 Order name: Basic Metabolic Panel; Complete Time: 09:05 rn 01/31 08:07 Order name: CBC with Diff; Complete Time: 09:05 rn 01/31 08:07 Order name: Hepatic Function; Complete Time: 09:05 rn 01/31 08:07 Order name: Lipase; Complete Time: 09:05 rn 01/31 08:13 Order name: Protime (+inr); Complete Time: 09:05 rn 01/31 08:07 Order name: IV Saline Lock; Complete Time: 08:18 rn 01/31 08:07 Order name: Labs collected and sent; Complete Time: 08:18 rn 01/31 08:13 Order name: Ptt, Activated; Complete Time: 09:05 rn 01/31 08:40 Order name: Abdomen ; Complete Time: 09:05 EDMS 01/31 09:05 Order name: CREATININE WHOLE BLOOD; Complete Time: 09:29 EDMS Administered Medications: No medications were administered Disposition: 02/01/20 09:33 Discharged to Home. Impression: Lower abdominal pain, unspecified, Recurrence of colon cancer with metastases. - Condition is Stable. - Discharge Instructions: Abdominal Pain, Adult, Dehydration, Adult, Metastatic Cancer. - Medication Reconciliation Form, Thank You Letter, Antibiotic Education, Prescription Opioid Use form. - Follow up: Private Physician; When: 2 - 3 days; Reason: Recheck today's complaints, Re-evaluation by your physician. - Problem is new. - Symptoms are unchanged. Signatures: Dispatcher [employer] EDMS Dorothy Calzada RN RN sv Nieto, Roman, MD MD rn Smirch, Shelby, RN RN ss Corrections: (The following items were deleted from the chart) 08:40 08:08 Abdomen Pelvis W Con+CT.RAD.BRZ ordered. EDVA EDMS 09:50 09:33 02/01/2020 09:33 Discharged to Home. Impression: Lower abdominal pain, sv unspecified; Recurrence of colon cancer with metastases. Condition is Stable. Forms are Medication Reconciliation Form, Thank You Letter, Antibiotic Education, Prescription Opioid Use. Follow up: Private Physician; When: 2 - 3 days; Reason: Recheck today's complaints, Re-evaluation by your physician. Problem is new. Symptoms are unchanged. rn
--- NOTE | 2020-02-01 09:34 | ER ---
Nurse's Notes [facility] Name: Azeem Mclaughlin III Age: 79 yrs Sex: Male : 1940 Arrival Date: 02/01/2020 Time: 07:54 Bed 2 Private MD: Diagnosis: Lower abdominal pain, unspecified;Recurrence of colon cancer with metastases Presentation: 01/31 08:00 Chief complaint: Patient states: Pain to L flank day after thanksgiving. Pt reports ss that the pain improved, but since yesterday evening became worse and moved to [facility]. Coronavirus screen: Client denies travel out of the [place] in the last 14 days. Ebola Screen: Patient denies exposure to infectious person. Patient denies travel to an Ebola-affected area in the 21 days before illness onset. Initial Sepsis Screen: Does the patient meet any 2 criteria? No. Patient's initial sepsis screen is negative. Does the patient have a suspected source of infection? No. Patient's initial sepsis screen is negative. Risk Assessment: Do you want to hurt yourself or someone else? Patient reports no desire to harm self or others. Onset of symptoms was January 29, 2020. 08:00 Method Of Arrival: Ambulatory ss 08:00 Acuity: ARCHIE 3 ss Historical: - Allergies: 08:04 No Known Allergies; ss - PMHx: 08:04 Rectal CA; Hypertension; Gout; ss - PSHx: 08:04 cardiac stents; ss - Immunization history:: Adult Immunizations up to date. - Social history:: Smoking status: Patient/guardian denies using tobacco, but has a distant history of tobacco abuse. - Family history:: not pertinent. - Hospitalizations: : No recent hospitalization is reported. Screenin:09 Abuse screen: Denies threats or abuse. Abuse screen: Denies injuries from another. sv Nutritional screening: No deficits noted. Tuberculosis screening: No symptoms or risk factors identified. Fall Risk None identified. Assessment: 08:15 General: Appears in no apparent distress. uncomfortable, slender, Behavior is calm, sv cooperative, appropriate for age. Pain: Complains of pain in left lower quadrant Pain currently is 7 out of 10 on a pain scale. Quality of pain is described as "it just hurts" Pain began 2-3 days ago. Is intermittent. Neuro: Level of Consciousness is awake, alert, obeys commands, Oriented to person, place, time, situation, Moves all extremities. Full function Gait is steady, Speech is normal. Respiratory: Respiratory effort is even, unlabored, Respiratory pattern is regular, symmetrical. GI: Abdomen is flat, Abd is soft X 4 quads Abdomen is tender to palpation in left lower quadrant. Derm: Skin is pink, warm \\T\\ dry. 09:49 Reassessment: Patient appears in no apparent distress at this time. No changes from previously documented assessment. Patient and/or family updated on plan of care and expected duration. Pain level reassessed. Patient is alert, oriented x 3, equal unlabored respirations, skin warm/dry/pink. Vital Signs: 08:00 BP 132 / 79; Pulse 66; Resp 16; Temp 97.4(TE); Pulse Ox 100% on R/A; Weight 68.04 kg; ss Height 5 ft. 8 in. (172.72 cm); Pain 7/10; 09:26 BP 136 / 65; Pulse 71; Resp 16; Pulse Ox 98% ; sv 08:00 Body Mass Index 22.81 (68.04 kg, 172.72 cm) ED Course: 07:54 Patient arrived in ED. ds1 08:03 Triage completed. ss 08:04 Arm band placed on left wrist. ss 08:06 Aniket Robins MD is Attending Physician. rn 08:07 Dorothy Calzada, BILL is Primary Nurse. sv 08:09 Patient has correct armband on for positive identification. Bed in low position. Call sv light in reach. Pulse ox on. NIBP on. Door closed. Head of bed elevated. 08:10 ED physician to see patient. sv 08:18 Initial lab(s) drawn, by fl, sent to lab. Inserted saline lock: 20 gauge in right dh3 forearm, using aseptic technique. Blood collected. 08:[address] via wheelchair. sj 08:43 Abdomen In Process Unspecified. EDMS 08:46 Patient moved back from [place]. sv 09:49 No provider procedures requiring assistance completed. IV discontinued, intact, sv bleeding controlled, No redness/swelling at site. Pressure dressing applied. Administered Medications: No medications were administered Outcome: 09:33 Discharge ordered by . rn 09:49 Discharged to home ambulatory. sv 09:49 Condition: stable 09:49 Discharge instructions given to patient, Instructed on discharge instructions, follow up and referral plans. Demonstrated understanding of instructions, follow-up care. 09:50 Patient left the ED. sv Signatures: Dispatcher [employer] Dorothy Aguiar, Adore Morel RN, Demi ds1 Aniket Robins MD MD rn Smirch, Shelby, RN RN ss Herrera, Deanna 3
[2020-02-01 10:32] VITALS: BP 136/65; O2SAT 98
[2020-02-01 10:38] VITALS: TEMP 97.4
== END 2020-02-01 09:50 | disposition home or self-care (01) ==
LOC: ER 07:53
DX: C18.9 Malignant neoplasm of colon, unspecified (principal); C78.7 Secondary malignant neoplasm of liver and intrahepatic bile duct; I10 Essential (primary) hypertension; Z95.818 Presence of other cardiac implants and grafts
CPT/HCPCS: 36415; 74176; 80048; 80076; 82565; 83690; 85025; 85610; 85730; 99284

== ENCOUNTER 2020-02-18 14:22 | Inpatient (IN) | payer OTHER ==
--- OUTSIDE RECORDS SUMMARY | 2020-02-18 14:27 | XMS REPORT | Continuity of Care Document ---
:1940 Author Organization Formerly [facility] t Address [address] [place] [address] Care Team Providers Name Role Phone JOHNNIE Primary Care Physician Unavailable CHERELLE Attending Clinician Unavailable Avani KHAN, L. Attending Clinician Unavailable Johnnie STUART Attending Clinician Cherelle STUART Attending Clinician West KHAN, B Attending Clinician Unavailable Yang Johnson Attending Clinician Unavailable Gretchen Barba NP Attending Clinician Fredy FONTENOT Attending Clinician Zurdo Murphy MD Attending Clinician Mat Crook Attending Clinician JOHNNIE Attending Clinician Unavailable Lambert STUART Attending Clinician Barbara DAWKINS Attending Clinician LUISA Attending Clinician Unavailable Luisa DAWKINS Attending Clinician Charli KHAN Attending Clinician Unavailable Anya Sanchez MA Attending Clinician Unavailable ZURDO MURPHY Attending Clinician Unavailable YANG PALM Attending Clinician Unavailable Benson Morrissey MD Attending Clinician Nabor KHAN, T Attending Clinician Unavailable Karen Soto MD Attending Clinician Hazel Abbott MD Attending Clinician Citlali KHAN, G Attending Clinician Unavailable Fatoumata Galeas RD Attending Clinician Misbah KHAN, M Attending Clinician Unavailable Karson Attending Clinician Unavailable Dejon KHAN, M Attending Clinician Unavailable Rolo STUART Attending Clinician Som KHAN, Hazel Attending Clinician Unavailable Stephanie Palma RN Attending Clinician Unavailable Diane STUART Attending Clinician Alecia Hdz RN Attending Clinician Unavailable Jose STUART, Patricio Attending Clinician Мария Cortes Attending Clinician Unavailable Zack KHAN Attending Clinician Unavailable Terrance STUART, Mat Attending Clinician Sohail EARLY, Patricio Attending Clinician Rosi DAWKINS Attending Clinician Cornell FONTENOT, M Attending Clinician Nabor ULLOA Attending Clinician Ponce STUART Attending Clinician Doctor Unassigned, Name Attending Clinician Unavailable Rolando Roldan Attending Clinician CHERELLE Admitting Clinician Unavailable Ponce STUART Admitting Clinician Payers Payer Name Policy Type Policy Number Effective Date Expiration Date S bora MEDICARE PART A AND [id number] 2007 B 00:00:00 [employer]ET[employer] NON [id number] CONTRACTED 00:00:00 Problems Condition Condition Condition Status Onset Resolution Last Treating Co mments Source Name Details Category Date Date Treatment Clinician Date 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 04-10 Berry o from from 00:00: n adenocarci adenocarci 00 noma noma 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 Denies hx of cardiover [...] Active 2018-03 Overview: kidney kidney 0-10 Formattin Andrenetta disease, disease, 00:00: g of this n [...] of Cancer of Disease Active anal anal 10-13 Anderso margin margin 00:00: n 00 Cancer Cancer Disease Active associated associated 10-13 An derso pain pain 00:00: n 00 [...] Source Sex Assigned At MD Smart on Exposure to Not sure MD Hilario SARS-CoV-2 (event) Cigarettes smoked 2020-02-04 2020-02-04 MD Adams flowers current (pack per 00:00:00 00:00:00 day) - Reported Tobacco use and 2020-02-04 2020-02-04 Never used MD Smart on exposure 00:00:00 00:00:00 Alcohol intake 2020-02-04 2020-02-04 Ex-drinker MD Champ thrasher 00:00:00 00:00:00 (finding) Alcohol Comment 2018-11-28 2018-11-28 2 drinks per day MD Hilario 00:00:00 00:00:00 History of tobacco 1960-03-04 2006-09-07 Current smoker MD Hilario use 00:00:00 00:00:00 Smoking Status Start Date Stop Date Source Former smoker 2020-02-04 00:00:00 2020-02-04 00:00:00 MD Rodriguez son Medications Ordered Filled Start Stop Current Ordering Indication Dosage Frequency Signature Comments Components Source Medication Medication Date Date Medication? Clinician (SIG) Name Name fexofenadin 2019-03 Yes 60mg Take 60 mg MD browning (LINO) 2-07 by mouth Adams rso 60 mg 14:41: as needed. n tablet 19 losartan-hy 2019-03 Yes 1{tbl} Take 1 MD drochloroth 2-07 tablet by And erso iazide 14:41: mouth n (HYZAAR) 19 daily. 100-25 mg per tablet MELOXICAM 2019-03 Yes 1{tbl} Take 1 MD ORAL 2-07 tablet by Anderso 14:41: mouth as n 19 needed. oxycodone 2019-03 Yes 1{tbl} Take 1 MD HCl 2-07 tablet by Anderso (OXYCONTIN 14:41: mouth n ORAL) 19 daily. HYDROcodone 2019-03 Yes Cancer 1{tbl} Take 1 MD -acetaminop 2-07 associated tablet by Champ sandoval (Power Fingerprinting) 00:00: pain mouth n 7.5 mg-325 00 every 6 mg per (six) tablet hours as needed for severe pain. HYDROcodone 2019-03 2020- No Cancer 1{tbl} Take 1 MD -acetaminop 2-07 12-07 associated tablet by Champ sandoval (Power Fingerprinting) 00:00: 00:00 pain mouth n 10 mg-325 00 :00 every 6 mg per (six) tablet hours as needed for severe pain. amLODIPine 2019-03 2020- No TAKE 1 MD (NORVASC) 1-26 12-04 TABLET BY Adams rso 2.5 mg 00:00: 00:00 MOUTH n tablet 00 :00 EVERY DAY ONE DAILY 2019- 2020- No 1{tbl} Take 1 MD MULTIVITAMI 10-16 tablet by An derso N ORAL 23:11: 00:00 mouth. n 35 :00 vit 2020- No 1{capsu Take 1 MD C/E/Zn/amanda 10-16 le} capsule by A nderso r/lutein/ze 23:11: 00:00 mouth n axan 35 :00 daily as (PRESERVISI needed. ON AREDS-2 ORAL) bisacodyl 2020- No 5mg Take 5 mg MD (DULCOLAX) 10-16 by mouth Adams rso 5 mg EC 23:11: 00:00 as needed n tablet 35 :00 for constipati on. Takes as needed ezetimibe 2019- No Take by (ZETIA 815 06- mouth as Anderso ORAL) 23:11: 00:00 needed. n 34 :00 senna-docus 2019-0 Yes Cancer of 2{tbl} Take 2 MD ate 7-14 anal tablets by Champ (SENOKOT-S) 00:00: margin, not mouth 2 n 8.6 mg-50 00 otherwise (two) mg tablet specified times a day as needed for constipati on. polyethylen 2020-0 Yes Cancer of Fill M D e [...] diarrhea (loose or frequent stools). metroNIDAZO 2019- 2020- No Cancer of Take 1 LE (FLAGYL) 08-20- overlapping tablet by Champ 500 mg 00:00: 00:00 sites of mouth at n tablet 00 :00 rectum, 9pm and at anus and 11pm the anal canal evening prior to surgery amiodarone 2019-0 Yes 100mg Take 100 MD (PACERONE) 6-17 mg by Andshoshanao 200 mg 00:00: mouth n tablet 00 daily. metoprolol 2020-0 Yes 50mg Take 50 mg M D tartrate 6-17 by mouth Champ (LOPRESSOR) 00:00: twice n 50 mg 00 daily. tablet HYDROcodone 2019-0 2020- No Cancer 1{tbl} Take 1 MD -acetaminop 6-14 associated tablet by Champ hen (NORCO) 00:00: 00:00 pain mouth n 10 mg-325 00 :00 every 6 mg per (six) tablet hours as needed for moderate pain. losartan-hy 2019-0 2020- No 1{tbl} Take 1 M D drochloroth 07-19 tablet by Gissell powell 00:00: 00:00 mouth n (HYZAAR) 00 :00 daily. 100-25 mg per tablet ondansetron 2020-0 Yes cancer 8mg Take 1 MD (Zofran) 8 4-08 chemotherap tablet (8 Anderso mg tablet 00:00: y-induced mg) by n 00 nausea and mouth vomiting every 8 (eight) hours as needed for nausea or vomiting. prochlorper 2019-0 Yes cancer 10mg Take 1 MD azine -08 chemotherap tablet (10 A nderso (Compazine) 00:00: [...] MD te-atropine -10 08-14 y-induced tablets by Anderso (LomotiL) 00:00: 00:00 diarrhea mouth n 2.5 00 :00 every 6 mg-0.025 mg (six) per tablet hours as needed for diarrhea (or loose stool. (Second Choice)). Not to exceed 8 tablets per day diphenoxyla 2019-0 2019- No chemotherap 1{tbl} Take 1-2 MD te-atropine -10 08-14 y-induced tablets by Anderso (LomotiL) 00:00: 00:00 diarrhea mouth n 2.5 00 :00 every 6 mg-0.025 mg (six) per tablet hours as needed for diarrhea (or loose stool. (Second Choice)). Not to exceed 8 tablets per day ondansetron 2019-2019- No cancer 8mg Take 1 M D (Zofran) 8 -10 08-14 chemotherap tablet (8 Anderso mg tablet 00:00: 00:00 y-induced mg) by n 00 :00 nausea and mouth vomiting every 8 (eight) hours as needed for nausea or vomiting. prochlorper 2019-2019- No cancer 10mg Take 1 M D azine 06-0914 chemotherap tablet (10 Anderso (Compazine) 00:00: 00:00 y-induced mg) by n 10 mg 00 :00 nausea and mouth tablet vomiting every 6 (six) hours as needed for nausea or vomiting. capecitabin 2019- No Cancer of 1000mg Take 2 MD browning (Xeloda) 06-09 overlapping tablets by Anderso 500 mg 00:00: 00:00 sites of mouth in n tablet 00 :00 rectum, the anus and morning anal canal and 2 tablets in the evening Saturday-Sat with radiation. colchicine 2019- No 1{tbl} Take 1 (COLCRYS) 05-05 tablet by Adams rso 0.6 mg 00:00: 00:00 mouth as n tablet 00 :00 needed. metroNIDAZO 2019- No Cancer of Take 1 MD BARRETO (FLAGYL) 05-04 overlapping tablet by Anderso 500 mg 00:00: 00:00 sites of mouth at n tablet 00 :00 rectum, 9pm and at anus and 11pm the anal canal evening prior to surgery neomycin 2019- No Cancer of Take 1 po (MYCIFRADIN 05-04 overlapping at 9pm and Anderso ) 500 mg 00:00: 00:00 sites of 1 po at n tablet 00 :00 rectum, 11pm the anus and night anal canal prior to surgery amLODIPine 2019- No 1{tbl} Take 1 (NORVASC) 5 03-23- tablet by An derso mg tablet 00:00: 00:00 mouth n 00 :00 daily. sucralfate 2018-03- No Reflux 1000mg Swish and (CARAFATE) 04-09 esophagitis swallow 10 Anderso 100 mg/mL 00:00: 00:00 mL (1,000 n suspension 00 :00 mg) 4 (four) times a day before meals and nightly. clindamycin 2018-03- No TAKE 2 (CLEOCIN) 03-24- CAPSULES Michael so 150 mg 00:00: 00:00 BY MOUTH 4 n capsule 00 :00 TIMES A DAY FOR 10 DAYS diphenoxyla 2018-03- No Cancer of 1{tbl} Take 1 to MD onofre-atropine 1-15 07-14 overlapping 2 tablets Anderso (LOMOTIL) 00:00: 00:00 sites of by mouth n 2.5 00 :00 rectum, every 6 mg-0.025 mg anus and (six) per tablet anal canal hours as needed for diarrhea. Not to exceed 8 tablets per day pantoprazol 2018-03- No Cancer of 40mg Take 1 MD e -15 04-08 overlapping tablet (40 A nderso (PROTONIX) 00:00: 00:00 sites of mg) by n 40 mg EC 00 :00 rectum, mouth tablet anus and daily with anal canal breakfast. traMADol 2018-03 Yes Chronic 50mg Take 1 MD (ULTRAM) 50 0-18 pain tablet (50 An derso mg tablet 00:00: mg) by n 00 mouth 2 (two) times a day as needed for moderate pain or severe pain. lidocaine-p 2018-03 Yes Encounter Apply to MD rilocaine 0-10 for Port-A-Cat Adams rso (EMLA) 00:00: adjustment h area 30 n 2.5-2.5% 00 and to 45 cream management minutes of vascular prior to access port device access as directed (topical anesthetic ). lidocaine 2018-03- No Cancer 1{appli Apply 1 MD (ANECREAM5) 0-10 14 associated cation} applicatio Anderso 5 % cream [...] Cancer of 10mg Take 1 MD azine 11-28 04-06 overlapping tablet (10 Anderso (COMPAZINE) 00:00: 00:00 sites of mg) by n 10 mg 00 :00 rectum, mouth tablet anus and every 6 anal canal (six) hours as needed for nausea or vomiting. (Second Choice) clopidogrel Yes 75mg Take 75 mg MD (PLAVIX) 75 7-10 by mouth Adams rso mg tablet 00:00: daily. n 00 Last dose 3 weeks ago. metoprolol 50mg Take 50 mg MD tartrate 09-05 by mouth Berry o (LOPRESSOR) 00:00: 00:00 daily. n 50 mg 00 :00 tablet ELIQUIS 2.5 2.5mg Take 2.5 MD mg tablet 09-01 mg by Anderso 00:00: 00:00 mouth n 00 :00 daily. allopurinol 100mg Take 100 MD (ZYLOPRIM) 07-20- mg by Anderso 100 mg 00:00: 00:00 mouth as n tablet 00 :00 needed. amiodarone 100mg Take 100 M D (PACERONE) 07-10 mg by Anderso 200 mg 00:00: 00:00 mouth n tablet 00 :00 daily. loperamide 2019- No as needed. MD (IMODIUM) 2 05-15 Anderso mg capsule 00:00: 00:00 n 00 :00 colchicine 2019- No daily. MD 0.6 mg cap 805-04 Anderso 00:00: 00:00 n 00 :00 losartan-hy 2019- No .5{tbl} Take 0.5 MD drochloroth 09-06 tablets by A nderso iazide 00:00: 00:00 mouth n (HYZAAR) 00 :00 daily. 100-12.5 mg per tablet atorvastati 2019- No daily. MD n (LIPITOR) 605-04 Anderso 80 mg 00:00: 00:00 n tablet 00 :00 meloxicam 2019- No as needed. M D (MOBIC) 15 08-21 Anderso mg tablet 00:00: 00:00 n 00 :00 Vital Signs Vital Name Observation Time Observation Value Comments Source WEIGHT 2019-09-08 00:00:00 75.1 kg WEIGHT 2019-09-08 00:00:00 75.1 kg WEIGHT 2019-08-21 00:00:00 75.4 kg WEIGHT 2019-08-21 00:00:00 75.4 kg Systolic blood pressure 2020-02-08 14:31:00 108 mm[Hg] MD Hilario Diastolic blood pressure 2020-02-08 14:31:00 61 mm[Hg] MD Hilario Heart rate 2020-02-08 14:31:00 52 /min MD Michael young Body temperature 2020-02-08 14:31:00 36.56 Shahnaz MD Patricio crouch Respiratory rate 2020-02-08 14:31:00 16 /min MD Patricio crouch Body weight 2020-02-08 14:31:00 69.1 kg MD Michael young BMI 2020-02-08 14:31:00 24.19 kg/m2 MD Michael young Oxygen saturation in 2020-02-08 14:31:00 99 /min MD Hilario Arterial blood by Pulse oximetry Body height 2019-09-14 23:24:50 169 cm MD Michael young Procedures Procedure Date / Time Performed Performing Clinician Sour e CT CHEST ABDOMEN PELVIS WO 2020-02-04 22:50:55 Jovanni Palm MD CONTRAST COMPREHENSIVE METABOLIC PANEL 2020-02-04 20:57:00 Elaine Seth MD PHOSPHORUS LEVEL 2020-02-04 20:57:00 Anca Seth MD MAGNESIUM LEVEL 2020-02-04 20:57:00 Anca Seth MD CARCINOEMBRYONIC ANTIGEN 2020-02-04 20:57:00 Jovanni Palm MD GLUCOSE LEVEL 2020-02-04 20:57:00 Anca Seth MD BLOOD UREA NITROGEN 2020-02-04 20:57:00 Anca Seth MD ELECTROLYTE PANEL 2020-02-04 20:57:00 Anca Seth MD n SERUM CREATININE 2020-02-04 20:57:00 Anca Seth MD .GLOMERULAR FILTRATION RATE 2020-02-04 20:57:00 Anca Seth MD CALCIUM LEVEL TOTAL 2020-02-04 20:57:00 Anca Seth MD ALBUMIN LEVEL 2020-02-04 20:57:00 Anca Seth MD ALKALINE PHOSPHATASE 2020-02-04 20:57:00 Anca Seth MD ALANINE AMINOTRANSFERASE 2020-02-04 20:57:00 Anca Seth MD ASPARTATE AMINOTRANSFERASE 2020-02-04 20:57:00 Anca Seth TOTAL PROTEIN 2020-02-04 20:57:00 Anca Seth MD FRACTIONATED BILIRUBIN 2020-02-04 20:57:00 Anca Seth MD PROTEIN / CREATININE RATIO 2020-02-04 20:38:00 Anca Seth URINE URINALYSIS WITH MICROSCOPIC 2020-02-04 20:38:00 Anca Seth MD IF INDICATED URINALYSIS MICROSCOPIC 2020-02-04 20:38:00 Anca Seth MD derson TYPE AND SCREEN 2019-09-15 08:17:00 Lam Richardson MD ABORH 2019-09-15 08:17:00 Lma Richardson MD ANTIBODY SCREEN 2019-09-15 08:17:00 Lam Richardson MD CLOT EXPIRATION DATE 2019-09-15 08:17:00 Lam Richardson MD rson TMP INTERPRETATION ANTIBODY 2019-09-15 08:17:00 Lam Richardson MD SCREEN NEGATIVE PATHOLOGY SURGICAL 2019-09-14 13:08:00 Lam Richardsoners on INTERPRETATION EXCISION OF TUMOR OF SOFT 2019-09-14 11:22:00 Lam Ricahrdson MD TISSUE OF PELVIS AND HIP AREA REARRANGEMENT OF ADJACENT 2019-09-14 11:22:00 Se Murphy MD TISSUE FOR REPAIR OF DEFECT OF TRUNK BLOOD UREA NITROGEN 2019-09-12 15:33:00 Robert Schmitz MD Michael son COMPLETE BLOOD COUNT W/ 2019-09-12 15:33:00 Robert Schmitz MD nderson DIFFERENTIAL SERUM CREATININE 2019-09-12 15:33:00 Robert Schmitz MD ELECTROLYTE PANEL 2019-09-12 15:33:00 Robert Schmitz MD Anderso n GLUCOSE, RANDOM 2019-09-12 15:33:00 Robert Schmitz MD TYPE AND SCREEN 2019-09-12 15:33:00 Robert Schmitz MD SERUM CREATININE 2019-09-12 15:33:00 Robert Schmitz MD .GLOMERULAR FILTRATION RATE 2019-09-12 15:33:00 Robert Schmitz MD Results CBC 2019-09-12 15:33:00 Robert Schmitz MD MANUAL DIFFERENTIAL 2019-09-12 15:33:00 Robert Schmitz MD Michael son ABORH 2019-09-12 15:33:00 Robert Schmitz MD ANTIBODY SCREEN 2019-09-12 15:33:00 Robert Schmitz MD CLOT EXPIRATION DATE 2019-09-12 15:33:00 Robert Schmitz MD Adams rson TMP INTERPRETATION ANTIBODY 2019-09-12 15:33:00 Robert Schmitz MD SCREEN NEGATIVE CONFIRM ABORH TYPE 2019-09-12 15:29:00 Robert Schmitz MD on HC COVID19 AUTOMATED PCR 2019-09-12 15:17:00 Ruth Augustin MD EKG, 12-LEAD (SCHEDULED) 2019-09-08 00:00:[address] CHEST ABDOMEN PELVIS W 2019-08-20 22:47:25 Jovanni Palm CONTRAST BLOOD UREA NITROGEN 2019-08-20 19:43:00 Jovanni Palm MDrson CARCINOEMBRYONIC ANTIGEN 2019-08-20 19:43:00 Jovanni Palm MD [...] MANUAL DIFFERENTIAL 2019-07-06 14:47:00 Chadd Blair MD [facility] GLUCOSE LEVEL 2019-07-06 14:47:00 Chadd Blair MD BLOOD UREA NITROGEN 2019-07-06 14:47:00 Chadd Blair MD [facility] ELECTROLYTE PANEL 2019-07-06 14:47:00 [facility]AT[facility] 2019-07-06 14:47:00 Chadd Blair MD .GLOMERULAR FILTRATION RATE 2019-07-06 14:47:00 Chadd Blair MD CALCIUM LEVEL TOTAL 2019-07-06 14:47:00 Chadd Blair MD [facility] ALBUMIN LEVEL 2019-07-06 14:47:00 Chadd Blair MD ALKALINE PHOSPHATASE 2019-07-06 14:47:00 Chadd Blair MD Adams rson ALANINE AMINOTRANSFERASE 2019-07-06 14:47:00 Chadd Blair MD ASPARTATE AMINOTRANSFERASE 2019-07-06 14:47:00 Chadd Blair TOTAL PROTEIN 2019-07-06 14:47:00 Chadd Blair MD FRACTIONATED BILIRUBIN 2019-07-06 14:47:00 Chadd Blair MDson COMPLETE BLOOD COUNT W/ 2019-07-01 12:40:00 Chadd Blair MD nderson DIFFERENTIAL COMPREHENSIVE METABOLIC PANEL 2019-07-01 12:40:00 Anai Blair LACTATE DEHYDROGENASE 2019-07-01 12:40:00 Chadd Blair MD And erson MAGNESIUM LEVEL 2019-07-01 12:40:00 Chadd Blair MD PHOSPHORUS LEVEL 2019-07-01 12:40:00 Chadd Blair MD Results CBC 2019-07-01 12:40:00 Chadd Blair MD MANUAL DIFFERENTIAL 2019-07-01 12:40:00 Chadd Blair MD [facility] GLUCOSE LEVEL 2019-07-01 12:40:00 Chadd Blair MD BLOOD UREA NITROGEN 2019-07-01 12:40:00 Chadd lBair MD Michael son ELECTROLYTE PANEL 2019-07-01 12:40:00 Chadd Blair MD Andshoshanao n SERUM CREATININE 2019-07-01 12:40:00 Chadd Blair MD .GLOMERULAR FILTRATION RATE 2019-07-01 12:40:00 Chadd Blair MD CALCIUM LEVEL TOTAL 2019-07-01 12:40:00 Chadd Blair MD Michael son ALBUMIN LEVEL 2019-07-01 12:40:00 Chadd Blair MD ALKALINE PHOSPHATASE 2019-07-01 12:40:00 Chadd Blair MD Adams rson ALANINE AMINOTRANSFERASE 2019-07-01 12:40:00 Chadd Blair MD ASPARTATE AMINOTRANSFERASE 2019-07-01 12:40:00 Chadd Blair TOTAL PROTEIN 2019-07-01 12:40:00 Chadd Blair MD FRACTIONATED BILIRUBIN 2019-07-01 12:40:00 Chadd Blair MD COMPLETE BLOOD COUNT W/ 2019-06-29 11:39:00 Olivia Abbott MD DIFFERENTIAL COMPREHENSIVE METABOLIC PANEL 2019-06-29 11:39:00 Olivia Abbott MD Results CBC 2019-06-29 11:39:00 Olivia Abbott MD MANUAL DIFFERENTIAL 2019-06-29 11:39:00 Olivia Abbott MD Adams rson GLUCOSE LEVEL 2019-06-29 11:39:00 Olivia Abbott MD BLOOD UREA NITROGEN 2019-06-29 11:39:00 Olivia Abbott MD Adams rson ELECTROLYTE PANEL 2019-06-29 11:39:00 Olivia Abbott MD Berry on SERUM CREATININE 2019-06-29 11:39:00 Olivia Abbott MD n .GLOMERULAR FILTRATION RATE 2019-06-29 11:39:00 Olivia Abbott MD CALCIUM LEVEL TOTAL 2019-06-29 11:39:00 Olivia Abbott MD Adams rson ALBUMIN LEVEL 2019-06-29 11:39:00 Olivia Abbott MD ALKALINE PHOSPHATASE 2019-06-29 11:39:00 Olivia Abbott MD And erson ALANINE AMINOTRANSFERASE 2019-06-29 11:39:00 Olivia Abbott MD ASPARTATE AMINOTRANSFERASE 2019-06-29 11:39:00 Olivia Abbott MD TOTAL PROTEIN 2019-06-29 11:39:00 Olivia Abbott MD FRACTIONATED BILIRUBIN 2019-06-29 11:39:00 Olivia Abbott MD nderson COMPLETE BLOOD COUNT W/ 2019-06-24 12:57:00 Chadd Blair MD nderson DIFFERENTIAL COMPREHENSIVE METABOLIC PANEL 2019-06-24 12:57:00 Anai Blair LACTATE DEHYDROGENASE 2019-06-24 12:57:00 Chadd Blair MD And erson MAGNESIUM LEVEL 2019-06-24 12:57:00 Chadd Blair MD PHOSPHORUS LEVEL 2019-06-24 12:57:00 Chadd Blair MD Results CBC 2019-06-24 12:57:00 Chadd Blair MD MANUAL DIFFERENTIAL 2019-06-24 12:57:[address] [facility] GLUCOSE LEVEL 2019-06-24 12:57:00 Chadd Blair MD BLOOD UREA NITROGEN 2019-06-24 12:57:00 Chadd Blair MD [facility] ELECTROLYTE PANEL 2019-06-24 12:57:00 Chadd Blair MD [facility] SERUM CREATININE 2019-06-24 12:57:00 Chadd Blair MD .GLOMERULAR FILTRATION RATE 2019-06-24 12:57:00 Chadd Blair MD CALCIUM LEVEL TOTAL 2019-06-24 12:57:00 Chadd Blair MD Michael son ALBUMIN LEVEL 2019-06-24 12:57:00 Chadd Blair MD ALKALINE PHOSPHATASE 2019-06-24 12:57:00 Chadd Blaire rson ALANINE AMINOTRANSFERASE 2019-06-24 12:57:00 Chadd Blair MD ASPARTATE AMINOTRANSFERASE 2019-06-24 12:57:00 Chadd Blair TOTAL PROTEIN 2019-06-24 12:57:00 Chadd Blair MD FRACTIONATED BILIRUBIN 2019-06-24 12:57:00 Chadd Blair MD COMPLETE BLOOD COUNT W/ 2019-06-17 12:32:00 Chadd Blair MD nderson DIFFERENTIAL COMPREHENSIVE METABOLIC PANEL 2019-06-17 12:32:00 Anai Blair LACTATE DEHYDROGENASE 2019-06-17 12:32:00 Chadd Blair MD And erson MAGNESIUM LEVEL 2019-06-17 12:32:00 Chadd Blair MD PHOSPHORUS LEVEL 2019-06-17 12:32:00 Chadd Blair MD Results CBC 2019-06-17 12:32:00 Chadd Blair MD MANUAL DIFFERENTIAL 2019-06-17 12:32:00 Chadd Blair MD Michael [facility] GLUCOSE LEVEL 2019-06-17 12:32:00 Chadd Blair MD BLOOD UREA NITROGEN 2019-06-17 12:32:00 Chadd Blair MD [facility] ELECTROLYTE PANEL 2019-06-17 12:32:00 [facility] SERUM CREATININE 2019-06-17 12:32:00 Chadd Bliar MD .GLOMERULAR FILTRATION RATE 2019-06-17 12:32:00 Chadd Blair MD CALCIUM LEVEL TOTAL 2019-06-17 12:32:00 Chadd Blair MD [facility] ALBUMIN LEVEL 2019-06-17 12:32:00 Chadd Blair MD ALKALINE PHOSPHATASE 2019-06-17 12:32:00 Chadd Blair MD Adams rson ALANINE AMINOTRANSFERASE 2019-06-17 12:32:00 Chadd Blair MD ASPARTATE AMINOTRANSFERASE 2019-06-17 12:32:00 Chadd Blair TOTAL PROTEIN 2019-06-17 12:32:00 Chadd Blair MD FRACTIONATED BILIRUBIN 2019-06-17 12:32:00 Chadd Blair MD URIC ACID 2019-06-15 15:34:00 Anca Seth MD COMPREHENSIVE METABOLIC PANEL 2019-06-15 15:34:00 Elaine Seth MD PHOSPHORUS LEVEL 2019-06-15 15:34:00 Anca Seth MD PROTEIN / CREATININE RATIO 2019-06-15 15:34:00 Anca Seth URINE URINALYSIS WITH MICROSCOPIC 2019-06-15 15:34:00 Anca Seth MD IF INDICATED MAGNESIUM LEVEL 2019-06-15 15:34:00 Anca Seth MD PTH INTACT 2019-06-15 15:34:00 WorkAnca jensen MD GLUCOSE LEVEL 2019-06-15 15:34:00 WorkAnca jensen MD BLOOD UREA NITROGEN 2019-06-15 15:34:00 WorkAnca jensen MD Michael son ELECTROLYTE PANEL 2019-06-15 15:34:00 WorkAnca jensen MD n SERUM CREATININE 2019-06-15 15:34:00 Anca Seth MD .GLOMERULAR FILTRATION RATE 2019-06-15 15:34:00 Anca Seth MD CALCIUM LEVEL TOTAL 2019-06-15 15:34:00 Anca Seth MD Michael son ALBUMIN LEVEL 2019-06-15 15:34:00 Anca Seth MD ALKALINE PHOSPHATASE 2019-06-15 15:34:00 Anca Seth MD rson ALANINE AMINOTRANSFERASE 2019-06-15 15:34:00 Anca Seth MD ASPARTATE AMINOTRANSFERASE 2019-06-15 15:34:00 Anca Seth TOTAL PROTEIN 2019-06-15 15:34:00 Anca Seth MD FRACTIONATED BILIRUBIN 2019-06-15 15:34:00 Anca Seth MD COMPLETE BLOOD COUNT W/ 2019-06-10 14:02:00 Chadd Blair MD nderson DIFFERENTIAL COMPREHENSIVE METABOLIC PANEL 2019-06-10 14:02:00 Anai Blair LACTATE DEHYDROGENASE 2019-06-10 14:02:00 Chadd Blair MD And kel MAGNESIUM LEVEL 2019-06-10 14:02:00 Chadd Blair MD PHOSPHORUS LEVEL 2019-06-10 14:02:00 Chadd Blair MD Results CBC 2019-06-10 14:02:00 Chadd Blair MD MANUAL DIFFERENTIAL 2019-06-10 14:02:00 Chadd Blair MD Michaelines young GLUCOSE LEVEL 2019-06-10 14:02:00 Chadd Blair MD BLOOD UREA NITROGEN 2019-06-10 14:02:00 Chadd Blair MD Michael [facility] ELECTROLYTE PANEL 2019-06-10 14:02:00 Chadd Blair MD SERUM CREATININE 2019-06-10 14:02:00 Chadd Blair MD .GLOMERULAR FILTRATION RATE 2019-06-10 14:02:00 Chadd Blair MD CALCIUM LEVEL TOTAL 2019-06-10 14:02:00 Chadd Blair MD [facility] ALBUMIN LEVEL 2019-06-10 14:02:00 Chadd Blair MD ALKALINE PHOSPHATASE 2019-06-10 14:02:00 Chadd Blair MD ALANINE AMINOTRANSFERASE 2019-06-10 14:02:00 Chadd Blair MD ASPARTATE AMINOTRANSFERASE 2019-06-10 14:02:00 Chadd Blair TOTAL PROTEIN 2019-06-10 14:02:00 Chadd Blair MD FRACTIONATED BILIRUBIN 2019-06-10 14:02:00 Chadd Blair MDson PETCT SUBSEQUENT TREATMENT 2019-05-01 14:46:51 Jovanni Palm MD STRATEGY POC GLUCOSE SCREEN 2019-05-01 13:29:00 Provider, David flowers CARCINOEMBRYONIC ANTIGEN 2019-04-28 14:27:00 Jovanni Palm MD COMPLETE BLOOD COUNT W/ 2019-04-28 14:27:00 Chadd Blair MD nderson DIFFERENTIAL COMPREHENSIVE METABOLIC PANEL 2019-04-28 14:27:00 Nubia Daniel MD Results CBC 2019-04-28 14:27:00 Chadd Blair MD MANUAL DIFFERENTIAL 2019-04-28 14:27:00 Chadd Blair MD [facility] GLUCOSE LEVEL 2019-04-28 14:27:00 Nubia Daniel MD BLOOD UREA NITROGEN 2019-04-28 14:27:00 Nubia Daniel MD [facility] ELECTROLYTE PANEL 2019-04-28 14:27:00 Nubia Daniel MD SERUM CREATININE 2019-04-28 14:27:00 Nubia Daniel MD .GLOMERULAR FILTRATION RATE 2019-04-28 14:27:00 Nubia Daniel MD CALCIUM LEVEL TOTAL 2019-04-28 14:27:00 Nubia Daniel MD Michael son ALBUMIN LEVEL 2019-04-28 14:27:00 Nubia Daniel MD ALKALINE PHOSPHATASE 2019-04-28 14:27:00 Nubia Daniel MD Adams rson ALANINE AMINOTRANSFERASE 2019-04-28 14:27:00 Nubia Daniel MD ASPARTATE AMINOTRANSFERASE 2019-04-28 14:27:00 Nubia Daniel TOTAL PROTEIN 2019-04-28 14:27:00 Nubia Daniel MD FRACTIONATED BILIRUBIN 2019-04-28 14:27:00 Nubia Daniel MDson COMPLETE BLOOD COUNT W/ 2019-04-14 15:44:00 Chadd Blair MDrson DIFFERENTIAL Results CBC 2019-04-14 15:44:00 Chadd Blair MD MANUAL DIFFERENTIAL 2019-04-14 15:44:00 Chadd Blair MD COMPLETE BLOOD COUNT 2019-03-31 12:58:00 Kera Sarabia MD DIFFERENTIAL Results [...] 12:40:00 Nubia Daniel MD COMPLETE BLOOD COUNT W/ 2019-03-16 12:40:00 Nubia Daniel MDrson DIFFERENTIAL GLUCOSE LEVEL 2019-03-16 12:40:00 Nubia Daniel MD BLOOD UREA NITROGEN 2019-03-16 12:40:00 Nubia Daniel MD Michael son ELECTROLYTE PANEL 2019-03-16 12:40:00 Nubia Daniel MD Andshoshanao n SERUM CREATININE 2019-03-16 12:40:00 Nubia Daniel MD .GLOMERULAR FILTRATION RATE 2019-03-16 12:40:00 Nubia Daniel MD CALCIUM LEVEL TOTAL 2019-03-16 12:40:00 Nubia Daniel MD Michael son ALBUMIN LEVEL 2019-03-16 12:40:00 Nubia Daniel MD ALKALINE PHOSPHATASE 2019-03-16 12:40:00 Nubia Daniel MD rsmarleny ALANINE AMINOTRANSFERASE 2019-03-16 12:40:00 Nubia Daniel MD ASPARTATE AMINOTRANSFERASE 2019-03-16 12:40:00 Nubia Daniel TOTAL PROTEIN 2019-03-16 12:40:00 Nubia Daniel MD FRACTIONATED BILIRUBIN 2019-03-16 12:40:00 Nubia Daniel MD derson Results CBC 2019-03-16 12:40:00 Nubia Daniel MD MANUAL DIFFERENTIAL 2019-03-16 12:40:00 Nubia Daniel MD [facility] COMPREHENSIVE METABOLIC PANEL 2019-02-18 12:19:00 Nubia Daniel MD COMPLETE BLOOD COUNT W/ 2019-02-18 12:19:00 Nubia Daniel MD ndersmarleny DIFFERENTIAL GLUCOSE LEVEL 2019-02-18 12:19:00 Nubia Daniel MD BLOOD UREA NITROGEN 2019-02-18 12:19:00 Nubia Daniel MD Michaelines young ELECTROLYTE PANEL 2019-02-18 12:19:00 Nubia Daniel MD Andshoshanao price SERUM CREATININE 2019-02-18 12:19:00 Nubia Daniel MD .GLOMERULAR FILTRATION RATE 2019-02-18 12:19:00 Nubia Daniel MD CALCIUM LEVEL TOTAL 2019-02-18 12:19:00 Nubia Daniel MD [facility] ALBUMIN LEVEL 2019-02-18 12:19:00 Nubia Daniel MD ALKALINE PHOSPHATASE 2019-02-18 12:19:00 Nubia Daniel MD ALANINE AMINOTRANSFERASE 2019-02-18 12:19:00 Nubia Daniel MD ASPARTATE AMINOTRANSFERASE 2019-02-18 12:19:00 Nubia Daniel TOTAL PROTEIN 2019-02-18 12:19:00 Nubia Daniel MD FRACTIONATED BILIRUBIN 2019-02-18 12:19:00 Nubia Daniel MDson Results CBC 2019-02-18 12:19:00 Nubia Daniel MD MANUAL DIFFERENTIAL 2019-02-18 12:19:00 Nubia Daniel MD Michael son Encounters Start End Encounter Admission Attending Care Care Encounter Source Date/Time Date/Time Type Type Clinicians Facility Department ID 2019-09-07 Outpatient SWATHI RICHARDSON [facility] [id number] 21:32:08 LAM thrasher 2019-10-12 2019-10-12 Outpatient SWATHI BLAIR [facility] [id number] 00:00:00 00:00:00 CHADD thrasher 2019-09-13 2019-09-13 Outpatient SWATHI BLAIR [facility] MDA [id number] 00:00:00 00:00:00 CHADD thrasher 2019-09-13 2019-09-13 Outpatient SWATHI SCHMITZ [facility] MDA [id number] 00:00:00 00:00:00 ROBERT thrasher 2019-09-12 2019-09-12 Outpatient SWATHI BLAIR [facility] MDA [id number] 00:00:00 00:00:00 CHADD thrasher 2019-09-12 2019-09-12 Outpatient SWATHI SCHMITZ [facility] MDA [id number] 00:00:00 00:00:00 ROBERT thrasher 2019-09-08 2019-09-08 Outpatient SWATHI MURPHY [facility] MDA [id number] 15:23:50 16:32:38 SE thrasher 2019-09-08 2019-09-08 Outpatient SWATHI BLAIR [facility] MDA [id number] 12:26:59 15:38:14 CHADD thrasher 2019-09-07 2019-09-07 Outpatient SWATHI BLAIR [facility] MDA [id number] 00:00:00 00:00:00 CHADD thrasher 2019-08-21 2019-08-21 Outpatient SWATHI RICHARDSON [facility] MDA [id number] 09:45:31 11:39:01 LAM thrasher 2019-08-20 2019-08-20 Outpatient SWATHI PALMJOVANNI PEDRO VASQUEZ [id number] 14:37:47 14:46:00 Berry thrasher 2018-11-04 2018-11-04 [place] [id number] 05:33:00 09:12:00 Encounter [facility] [id number] League [id number] [facility] [id number] [address] ([facility]) 2018-11-04 2018-11-04 Orders Doctor ROBERT [id number] 00:00:00 00:00:00 Only Unassigned, BARBARA [id number] [facility] [address]686 [id number] 2018-10-20 2018-10-20 Office [place] [id number] 09:24:45 11:21:31 Visit [facility] [id number] [facility] [id number] CENTER AT [id number] [address] 2018-10-20 2018-10-20 Telephone [facility] [id number] 00:00:00 00:00:00 Sara [facility] [id number] [facility] [id number] CENTER AT [id number] [address] 2017-01-23 2017-01-23 Orders Doctor ROBERT [id number] 00:00:00 00:00:00 Only Unassigned, BARBARA [id number] [place] [id number] Results Test Description Test Time Test Comments Results Result [facility] e Comments CT Chest Abdomen 2020-02-05 By noncontrast MD Hilario Pelvis without 02:25:10 assessment: 1. New Contrast multifocal hepatic metastases. 2. New retroperitoneal, pelvic, and inguinal michael metastases. Interval growth of prominent left supraclavicular and mediastinal nodes raise concern for thoracic metastatic disease. 3. Two new subcentimeter pulmonary nodules are indeterminant; metastatic disease is a consideration. 4. 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 Oncologic surveillance.Compari son: CT 08/20/2019.Technique : CT of the chest abdomen pelvis without IV contrast. Oral contrast was administered.Finding s: Lack of intravenous contrast decreases the sensitivity for detection of solid organ and vascular pathology.Chest:Ther e is a new 6 mm nodule in the right lobe (72). There is a new 5 mm nodule in the right lower lobe (88). Stable subpleural reticulations and honeycombing in the right lung, in keeping with interstitial lung disease. No consolidation or effusion.Interval growth 0.9 x 0.9 cm left supraclavicular lymph node (05/14), previously barely visualized. Increased size of a 1.2 x 1.6 cm precarinal lymph node (3/50), previously 0.9 x 1.4 cm. Increased size of a 1.1 x 1.6 cm subcarinal node (/67), previously 0.6 x 1.1 cm.The cardiac chamber sizes are normal. No pericardial effusion.Tip of the left-sided IJ Port-A-Cath terminates at the inferior SVC.Abdomen and pelvis:There are new ill-defined hypodense lesions in the liver, suboptimally evaluated. These are in keeping with metastases. For example, a 3.4 x 3.2 cm metastasis in segment for (3/97). A 2.6 x 1.9 cm metastasis in segment VII (2/95). A 4.2 x 2.6 cm metastasis in segment V (3/119). A 2.8 x 2.6 cm metastasis in segment VIII (/158). Additional metastases are annotated on series 3. Stable 1.3 cm cyst in segment .No biliary ductal dilatation. Cholelithiasis without evidence of cholecystitis.The spleen, pancreas, and right adrenal gland are unremarkable by noncontrast assessment. Mild left adrenal gland thickening is stable, may be related to hyperplasia.Stable renal contours without evidence of hydronephrosis. Stable simple 2.5 cm right cortical cyst. Small hemorrhagic cyst noted in the left kidney.New retroperitoneal and pelvic lymphadenopathy, in keeping with metastatic disease: New right retrocrural lymph node (3/152). New 1.5 x 1.7 cm celiac node (3/166). A 2.1 x 1.9 cm left periaortic node (3/196). A 1.9 x 2.6 cm left periaortic node (3/202). A 1.2 x 1.5 cm aortocaval node (3/194). Enlarging right inguinal node measures 1.7 x 1.7 cm previously 1.2 x 1.5 cm. A new right pelvic sidewall node measures 2 x 3 cm (3/254). A new 0.8 x 1.3 cm right internal iliac node (3/245). A new 1.2 x 1.7 cm right common iliac node (3/235).The rectum and anal canal are suboptimally assessed secondary to lack of intravenous and rectal contrast. Within limitations, there is suspected mid to inferior rectal wall thickening (3/279-287).No evidence of bowel obstruction. Diverticulosis without evidence of diverticulitis.No ascites.Aortoiliac atherosclerosis. No aneurysm.The urinary bladder is unremarkable. The prostate is mildly enlarged.Fat-contain ing left inguinal hernia now contains a loop of nonobstructed sigmoid colon (3/274).Bones:No suspicious osseous lesion.IMPRESSION:By noncontrast assessment:1. New multifocal hepatic metastases.2. New retroperitoneal, pelvic, and inguinal michael metastases. Interval growth of prominent left supraclavicular and mediastinal nodes raise concern for thoracic metastatic disease.3. Two new subcentimeter pulmonary nodules are indeterminant; metastatic disease is a consideration.4. Suspected new mid to distal rectal wall thickening, suboptimally assessed. Protein/Creatinine Ratio Urine 2020-02-04 22:19:36 Test Item Value Reference Range Interpretation Comme nts UTP Ran (test code = 7922) 27 mg/dL N ormal range not available for collections les s than 24 hours in duration. U Creatinine (test code = 7725) 271.7 mg/dL 40-278 The reference range listed is for first morni ng urine collection. U Prot/Creat (test code = 7805) 0.10 Normal range not available for collections les s than 24 hoursin duration. MD [id number] 22:02:35 Test Item Value Reference Range Interpretation Comments CEA (test code = 5203) 5236.0 ng/mL <=3.8 H Refer ence Ranges:Smoker 0.0 - 5.5 Testi ng Performed at [facility] Lab Dry Kiln Feeder [facility], [address], [address], [place] [address] Lab Interpretation Abnormal (test code = 86166-2) MD HilarioUrinalysis with [id number] 21:44:32 Test Item Value Reference Range Interpretation Comments UA WBC (test code = <1 0- 2 /HPF 7904) UA RBC (test code = 3 0- 2 /HPF H 7891) UA Mucous (test code = NOT SEEN TRACE /HPF 7887) UA Bacteria (test code NOT SEEN NOT SEEN /HPF = 7870) UA Squam Epi (test NOT SEEN OCC /HPF code = 7896) UA Hyal Cast (test 21 0- 2 /LPF H code = 7883) DRE (test code = DRE) Some reporting parameters within the Urinalysis test have changed due to the implementation of new instrumentation in the [facility], allowing greater sensitivity of measurement. Urinalysis results reported by the [facility] Centers using existing instrumentation, as well as Urinalysis testing performed manually or by backup methodology at the [facility] will remain relatively unchanged. New reporting parameters and units will now be reported for all campuses. Lab Interpretation Abnormal (test code = 06777-8) MD HilarioUrinalysis w/Microscopic if [id number] 21:34:17 Test Item Value Reference Range Interpretation Comments UA Color (test code = 7877) Yellow Yellow UA Appear (test code = 7868) Clear Clear UA Glucose (test code = 7881) NEG NEG mg/dL UA Bili (test code = 7871) NEG NEG UA Ketones (test code = 7884) NEG NEG mg/dL UA Spec Grav (test code = 7894) 1.019 1.002-1.035 UA Blood (test code = 7872) NEG NEG UA pH (test code = 7909) 5.0 4.5-8.0 UA Protein (test code = 7890) 30 mg/dL NEG A UA Urobilinogen (test code = 7903) NEG NEG UA Nitrite (test code = 7888) NEG NEG UA Leuk Est (test code = 7886) NEG NEG Lab Interpretation (test code = Abnormal 80550-4) MD HilarioFractionated [id number] 21:30:19 Test Item Value Reference Range Interpretation Comments Bili Total (test 1.1 mg/dL <=1.2 Indocyanine Green (ICG) code = 5096) may cause false ly elevated biliru bin results. Total and direct bilirubin must not be measured from s amples containing indo cyanine green. False el evation of total bilirubin can be seen in patient s with IgG concentrations above 28 g/L.Testing Per formed at [facility] Lab Ambulat ory Care [facility], [address], [place] [address] Bili Direct (test 0.2 mg/dL <=0.3 Indocyanin e Green (ICG) code = 5094) may cause false ly elevated biliru bin results. Total and direct bilirubin must not be measured from s amples containing indo cyanine green. Testing Performed at [facility] Lab [facility], [address] [place] [address] Blvd, [address], [place] [address] Bili Indirect (test 0.9 mg/dL 0-0.9 Testing Performed at [facility] code = 5095) Lab [employer]eder [facility], [address], [place] [address] MD HilarioGlomerular Filtration [id number] 21:30:18 Test Item Value Reference Range Interpretation Comments eGFR-AA (test code = 26 >=60 mL/min/1.73 L Nor mal eGFR >= 60 8062) sq. m mL/min/1.73 m2 Note: The eGFR is jean-paul culated using the CKD-E PI equation. The e GFR declines with a ge. eGFR <60 mL/min /1.73 m2 is considere d as "decreased". Th is equation should only be used for pat ients 18 and older. According to th e National Kidney Foundation's Ki dney Disease Outcome Quality Initiat angel (KDOQI) [...] decreased GFR 15-295 Kidney f ailure <15 Testi ng Performed at [facility] Lab Dry [employer] Feeder [facility], [address], [place] [address] eGFR-ELLIS (test code = 22 >=60 mL/min/1.73 L No rmal eGFR >= 60 8063) sq. m mL/min/1.73 m2 Note: The eGFR is jean-paul culated using the CKD-E PI equation. The e GFR declines with a ge. eGFR <60 mL/min /1.73 m2 is considere d as "decreased". Th is equation should only be used for pat ients 18 and older. According to th e National Kidney Foundation's Ki dney Disease Outcome Quality Initiat angel (KDOQI) [...] decreased GFR 15-295 Kidney f ailure <15 Testi ng Performed at [facility] Lab [employer] dg, [address], [place] [address] Lab Interpretation Abnormal (test code = 18023-7) MD Davis [id number] 21:30:17 Test Item Value Reference Range Interpretation Comments Total Protein (test 7.8 g/dL 6.4-8.3 Testing Performed at [facility] code = 7649) Lab [employer]eder [facility], [address], [place] [address] MD HilarioPhosphorus [id number] 21:30:16 Test Item Value Reference Range Interpretation Comments Phosphorus (test code 4.4 mg/dL 2.5-4.5 Testin g Performed at = 6817) [facility], [address], [place] [address] MD HilarioMagnesium [id number] 21:30:15 Test Item Value Reference Range Interpretation Comments Magnesium (test code = 2.0 mg/dL 1.6-2.6 Testi ng Performed at 6359) [facility], [address], [place] [address] MD HilarioCalcium [id number] 21:30:14 Test Item Value Reference Range Interpretation Comments Calcium Lvl (test 10.2 mg/dL 8.4-10.2 Testing Pe rformed at code = 5258) [facility], [address], [place], [place] [address] MD HilarioAlkaline [id number] 21:30:13 Test Item Value Reference Range Interpretation Comments Alk Phos (test code = 85 U/L 40-129 Testin g Performed at [facility] 4768) Lab [employer]eder [facility], [address], [place] [address] MD HilarioAlbumin [id number] 21:30:12 Test Item Value Reference Range Interpretation Comments Albumin Lvl (test code 4.4 3.5- 5.2 gm/dL Val ting Performed at [facility] = 4763) Lab [employer]eder [facility], [address], [place] [address] MD HilarioAspartate [id number] 21:30:11 Test Item Value Reference Range Interpretation Comments AST (test code = 4731) 60 U/L <=40 H Testi ng Performed at [facility], [address], [place] [address] Lab Interpretation (test Abnormal code = 12542-3) MD [id number] 21:30:10 Test Item Value Reference Range Interpretation Comments ALT (test code = 27 U/L <=41 Testing Per formed at [facility] 4705) [facility], [address], [place] [address] MD HilarioElectrolyte [id number] 21:30:09 Test Item Value Reference Range Interpretation Comments Sodium Lvl (test code = 135 136- 145 mEq/L L Te sting Performed at 7355) [facility] Lab [facility], [address], [place] [address] Potassium Lvl (test code 4.6 3.5- 5.1 mEq/L T esting Performed at = 6854) [facility] Lab [facility], [address] [facility], [address], [place] [address] Chloride (test code = 96 98- 107 mEq/L L Testi ng Performed at 5279) [facility] Lab [facility], [address], [place] [address] CO2 (test code = 5227) 24 22- 29 mEq/L Testi ng Performed at [facility], [address] [facility], [place] [address] Anion Gap (test code = 15 4- 14 mEq/L H Testi ng Performed at 9325) [facility] Lab [facility], [address], [place] [address] Lab Interpretation (test Abnormal code = 88452-4) MD Hilario.Serum [id number] 21:30:08 Test Item Value Reference Range Interpretation Comments Creatinine (test code = 2.64 mg/dL 0.67-1.17 H Test ing Performed 5399) at [facility] Lab Dry [employer] Feeder [facility], [address], [place], [place] [address] Lab Interpretation (test Abnormal code = 94296-6) MD [id number] 21:30:07 Test Item Value Reference Range Interpretation Comments BUN (test code = 5055) 57 mg/dL 6-23 H Testi ng Performed at [facility], [address] [facility], [address], [place] [address] Lab Interpretation (test Abnormal code = 17224-8) MD HilarioGlucose [id number] 21:30:06 Test Item Value Reference Range Interpretation Comments Glucose Level (test code 118 mg/dL 70-99 H Ref erence range is = 5699) valid for fasti ng specimens only. Guidelines established by the [place] Diabet es Association guidelines (Standards of Medical Care in Diabetes 2016. Diabetes Care 2 016; 39: S13-22) are that a fasting gluco se of greater than or equal to 126 mg /dL or a random glu cose greater than or equal to 200 mg /dL with symptoms, that are confirmed b y repeat testing on a different day, meet the criteria fo diabetes [facility]. Testing Perform ed at [facility] Lab Ambulat [facility], [address], [place] [address] Lab Interpretation (test Abnormal code = 35636-0) MD HilarioPathology Surgical [id number] 19:33:00 Test Item Value Reference Range Interpretation Comments Diagnosis (test code = 34) c0rodQXaOOZvnUE5BRI gRBEsl4jqb9BleXFjpG UkFCrxkNKgvaFbmh81w XI8pF15VC0sDWHpRxT5 CBOrhcV2Zyk4FBFvJLA qoNSrK498g0acv9tjmm SkzGA8gHzaOYAxKNJvA FafUHViLzZcJP0lS1mV TiwgUEVSSUFOQUwsIFd CNSBhSV9XRGjoLToJUW XOR921FGUnaekemEZ4G DBcZmktNzIwXGxpbjE0 ESWrCS5YNVKVNmLgFUM TK3SKLGZTJIHDIWAVLd QENBOYZQCZBBBXM3BIJ dQZRz3CEZPGOZWYXDXC N83JBUGZFM5KBNZOMUq gRkVBVFVSRVMuIFxwYX UqMaQxFKOMPILSMC1MZ EVGRkVDVCBJUyBQUkVT PM2ASJr2QGKjZfeLOmh VUKFZNJ6YOOBIXOuRXX aATT2SJ6zWZUDMH7aXL RkcROLYO9LkZvPNESeM WXWzZXSAEN2lqWUiUQD RSW1PPYdHNxxVHTSPWE WAIHtFKY3bASUAGNrXJ EFORCBTVUJDVVRBTkVP MDXhYGLYMB7LUZXKQYM TVUUuXHBhciBObyBseW 7seK14KYWopPpgrpRjq hOrw6wkhuHfyqRwLWWv rzA3gwRnTTfsesWwzI9 tLNiiHV66qKSqGMOjPQ BhciBWSUFCTEUgVFVNT 4BeX1DGOPYjWNkECR4G MNUWYWsZGKqRVzB5DJ5 iEHXBQO1IKNJJSBOINW OWNqkWUeMRWBUQF9EVJ J1NCirDLq5ypOZuQGRE IQ7YSCBNPAFpYYLLAI3 pRI9KZZPgI8eWNW3UTF FUACJWYJQpNDPQG9TrN 0VMTFMpIEVYVEVORFMg JO5tSMeQKIHZGYAIGV7 SIEFORCBJTkZFUklPUi LJZIISF1CLTP0JSuvTP yBsJPIwxtSNSPWaHV1r cmdpbiBpcyBmcmVlIG9 wWUR0rR7dTpabYEHmP5 Dhyht2vZ8wHMVjbQQot h5htxTysrG0zXKix4O3 XQMqCFjto5K4iNMgEKA yx4NoRWtgaYk1GA6xKR AiJ1K2O7CiJZpnTRTsQ YZptzMwKNgipS7vNFHc bnZvbHZlbWVudCBvZiB wh7lyMIssHZxpUB89rE ZpZWQuXHBhciBObyBse F6uaEMlc8XmczVpXXUd dGlmaWVkLlxwYXJcbGk nBJXzFFffpE0qLHXzKZ Bhcn0= Gross Description (test l4dgzTZrTJMmr6luLNT code = [id number]) gSbJvOPQLp3qlm056kW OjXWdwVbWoXxY0sDEgT BIznQQvp9N7EOkrhBPq LzAYttjinTh7p8yrS0j gcb6nZF7vBeDbMDDiTM QwXGZwcnEyIFRpbWVzI F7axvONf58hzbx2i4pl ZGwesV8zPNXxNNOzkKK te5N3PWwtwVAdLHVUu6 XphJEuDQ7swhs5f0uxJ Fpbo5bwp3VyDuWiBBTg ZXQwXGZwcnEyIEFyaWF gYP7grjQhcgb4v6euGY GiGu8eEIUghfgzS5lzg xEooWDoJaQziXOwM576 xyeqcwb4m2idYBTqHf1 piSsgN0wnjuBaxBNpKj BycTIgVHJveSBNaWNyb bKfjRQ7nCqiFnRkXSLp s92uzcsoX8fgtnSncAO dAxIyfPVoR5udUq6bC3 37JMKvRFszg3fkb8QwS mNoYXJzZXQwXGZwcnEy IBRbE31dWQUDX654ASA jZGPlKQKzr5uug7moQ9 hhcnNldDBcZnBycTIgQ CYdIEb0yR1Ib7kfq4bu jfJwsQT9EWQnLSRhP4H aTB5iXCKexADrV6avPS RsIIkfnwMfjsV6XNTpf NJfYXqogrNqZmJdQ1Uh JT6wRYiivKOyUwI3ZFZ fENF4SXceBVMcQJdiYn c9ZWH2T7xcQQV1T8smx dRcurQhDPYsrJT5Laam zeMjTzgzC6JoYO71MFi jkKXtTcy2DVSsQSe9YM wrXLAzNWImUya7MNo9F 8uaEDOzKLXtS3ToKI1f CBDgGrb8PXWsDVzhygI lFBQ9QCmlINZdQIZ3JK VrdXSpNfa4TDRqUDY3E 0wsouVcpmE1Z8jglPXh TWWlC2amVQZcZCmoI5L wUM7pWXhiErk4XPX9ZA idqwYyDHw7SGvrCVIdQ Tv6PWAeuOQaNaM8EVAb BMX1JDrczmIfsvF4EAa joMMzOMavP9mmKYWrXM jcY5QpOV1sHEakEga9A TIwNztccmVkMjIzXGdy ZWVuMjIzXGJsdWUyMjM 7XHJlZDIzOVxncmVlbj LjSVcusEInDaF8P9yyI BSsJRNiX9UsVY4qLCZy Cfa7AVC9ZIgrdlBbBIr digWebyVnZri3VUI0KH s2Tzlsu5F0fHCowMJdt HtcczEgaGVhZGluZyAx C919QUVvDJclWMWhlmy zPlq9r2orPtOiPQXudO 7kTLI0fXncpzTheETmQ WgqKtT5S332XET3IGpv NJQsycofIMx4u1ljUoZ yURQqhJ9iSIW5mV8MZl baSWDxkgrpFAk4BLhqX DJchsghNhT2SAzwMFRd aFr4KPmzGQUevgB9Eyi tYXJndDcyMFxtYXJnYj ytHFtyJVEvPHO8QhZgD GTgn5Fzwkg1QgBxMeOi VCIVHzkdwEHrNMH9KUL 0ZjFcZXBpYzkxMDFcYW 1uwBgqhKc4xTryAOUao zS1yDCjKUwta6kcNCU1 w1duhcleKGYnMOqtEk9 udHRibHtcZjAgQXJpYW n4zX26OEDxhN5lxLQqN Eb2KSXpeoMxlAcqtD6m ZnMyMCBBLiBBbmFsIEN carCwCEQmpbOoVP1ezv joyzK8zM1unkjco3alW 2xlIGxvbmctIGxhdGVy TVpfSIQfxUKvNT5bkQ0 uTCUmu1EyCJ6tYBVUZc ZhVMV3VZyjDOPwYDEmC jYgeCAyLjggeCAxLjQg T44ey4rawkElvCkcbIK hZL0czAXbfTNoUJknjF pnJDXtxR9diBIcgH4mZ xGrkOo4C5ijJHGgrDS8 SUTkmDJsoiDlWKRpj6G tkRZlz3UdrYTqJNB4TU teVvOgwL4gZxQsxJOvW HBhciBUaGVyZSBpcyBh EMWxMQA8FTSaZKHlzIP aWpIbB4BvoCskFFOdkr KdOVTbj19gVAYcgDosF KS9oVFdoENqVDFaENip cQpmj8RqklHrfjgrDHN fCRPzqYB4aMNku4qwob S3hLjckBDguhLfMdznQ 75nArFvdHR8iLCnW5bu q2MxmHOmqDLgjulutuS eci4kPRAuHLWecB5zYE 9rKHNgIQZkjWPyhj9vN AWaVIVszZ7dOCN3IXgx dGVyYWwgdGlwLiBcbGl qZSzbmB9nPWLhNPRprS EtqK7zhcOgckGmriNux fMmxXVjnFBzdQT2GXCf MGNvmzxeZMEbON0UFKU LJJH2WVWmeBSmSO2gNQ NpTPD2sYVmtR8mEEfgw WJey8EsiHsnTQ9eaxmb wgkeP2SmuaddTUGiIOO zaCBpbmZlcmlvciBoYW pfSP0iDZLvQCYxLEEsa I6pNWEsviRUDDNVFA4G SQPRTTM1PABnJQGsKXV ouqOfZXCerQwstJ2lQA KwUVMwQX83yjzcTNApN I9rUStnhWX3dEDwWMtq knCchLTeJJLmj597ENE zXGVuZGFzaCBBIDExLC BlbnRpcmVseSBzdWJta ER2PUMhw8UmbMhsZSMp bWFpbmluZyBzcGVjaW1 lbiwgZnJvbSBsYXRlcm DzGLNmLT1eOYeeoC6wm WFsGYUtzszdqv50BOS4 SMKpx4BeO0SyGHvJPFI oo6PkI4TuMEhsjVVlmv hplzSlASNzex9ucSYde Qp9 Disclaimer (test code = [id number]) iCHFfOCRff7vsOCZgpP FuZzEwMzNcZnRuYmpcd AUnPHTgMhDsb6xcp798 rTYps7hdOLOrGeD5qOZ gAQAgoNDmD316HIEgQN bpj8mxb0YvWLFsdWRll 7G7DVEUbohwkHj6vKml N72wo6F1PsxdU8gjXRA nCLLdP5VyVX1hIKDlMt h2JTG0LZU7NYWbDLQtZ 2IvAB5uCHWjmHWoHAw7 d5ybmElnNYWsJBD2q1o gXJxfbaWhEH3ays2deY x6r1ozxbCgYQFeUTSxr JQVYUIhW2ThhDnzOp7q rBx8hEobEnbgXBK0Wvn 8SX5vjr24eer6wAzjEK EmdjlcDcP3YKmqAIVyh yybXYl4AUagZRKopHJ1 UJQlkCEmP8YzGXBuSA2 iyxf7DWM3QZhlXKYdMq X3RYHfvABzVPDrfRlzX Kjop246STI9SmAhRH7x K9Sbu0O3rV2rsIMyPJY sqVLgAaMkZDEhlc5ekN GcVBgew6UqLCN2xfD2a TXbgIJfWGRnHF48Tklc w1PqPmosVMR6QJXfqxB hq5Kcx8soCgMpmeYqQ3 jfN5LuNLZzOUJoYLJrU iScpiSxq1Mqj2JziOOr eYu4p0whQOZrRBAewBt bw2kzJRW1PRRgQ1A3jH Emp9hwAAubYOOrvZQ6g aT8OPGsoRYtR9NgaM6r OINkTA4ikqn3v2tjHRP 9DMfbDOTnLyZ8dmO5EM BcaGVhZGVyeTcyMFxmb 791BTT4KeQpGZHiu8Kf Z0ZdeUkoA05ifWqaW79 pUIZhuErzrJ4qgRuugJ 5cZjBcZnMyNFxxbFxwb BZlsaemDPuawyN6UAyx bnnpZMTcDYtmE8yyNcW jLQHnkAwbLMlsu5MlWM YvBIWuDaaajmP5SENJm 96kNKIjp5UuGSXpoQ8w dUAiKNiibfMquXB9CWd hdmUgYmVlbiBkZXZlbG 0iKJFhCD1dKLLsceMzo g2hckOfBJQnBHWnA5Xy cmlzdGljcyBkZXRlcm1 uslUkYCD9OWJTQL9KGE SbZWVql03rXBLqqIyec S1wrSGbgjUeVEPru7Wd lR5zfGCQHWIlR2seIJ7 nNGqkr3JktUIfmMRkzQ O9FEDgr5KrYiHjghRbf EYazLXjV1MtzNocB0ke PRWxZLDqsnWcoCYlu6Z gGDAseBP7eFSnGW1KXe IEy95eUXMhQYBZikIfG JMevUporTK8eyT8lT2a LiBJZiBhcHBsaWNhYmx gPXGae685cs6kgtH7FL XeOHXmqcjch0WaJUPkC NTtvF71QLSlOIEfkf3m fptdbOFsjiXoZ1Ohirr 7nS2iMIYoYRsoTVWoXR ZzMjJcbGFuZzEwMzNca GljaFxmMVxkYmNoXGYx LMayE9fwOqDqPuLfEem wYXJ9 MD HilarioTMP Interpretation Antibody Screen [id number] 11:32:29 Test Item Value Reference Range Interpretation Comments TMP Auto Neg At the present ABSC Interp time, patient (test code = plasma shows no ____DAMIEN GUSMAN MD - 7535) evidence of RBC [id number] d by: DAMIEN whiteantibodikarena. MD Tari BELTRAN 15134Yjezywhh D ate/Time: 09.15.2019 6:32 AM CDT Transcribed Jesse e/Time: 09.15.2019 6:32 AM CDTElectronical ly Signed By: MD Tari QUINTANILLA [id number] on 09.14 6:32 AM C MD HilarioAntibody [id number] 10:06:24 Test Item Value Reference Range Interpretation Comments ABSC. (test code = 890-4) Negative ABSC MD [id number] 10:06:23 Test Item Value Reference Range Interpretation Comments ABORh. (test code = 882-1) O POS MD HilarioClreagan Expiration [id number] 10:06:20 Test Item Value Reference Range Interpretation Comments T & S Expiration (test code = 09/18/2019 5318) MD HilarioCOVID-19 (SARS-CoV-2) PCR-Asymptomatic [id number] 20:30:47 Test Item Value Reference Range Interpretation Comments COVID19 (SARS Not Detected Not Detected This test is a CoV-2) Result qualitative (test code = reverse-transcr iptase 13741-4) polymerase betty n reaction (RT-PC R) developed [...] were verified by the Microbiology Laboratory at [facility]. Results must be interpreted within the context of all relevant clinic al and laboratory find ings and should not form the sole basis for a diagnosis or treatment decision.M1A1 Tank Crewman al controls are in cluded to assess [...] testing if clin ically indicated. COVID19 SARS SCANNING CLERK Swab Source (test code = 53109) COVID19 SARS Pre-OR Procedure Indication (test code = 53707) MD HilarioConfirm [id number] 17:59:38 Test Item Value Reference Range Interpretation Comments ABORh Confirm. (test code = 882-1) O POS MD HilarioGlucose, [id number] 16:19:01 Test Item Value Reference Range Interpretation Comments Glucose Random (test 96 mg/dL 70-199 Effecti ve 09/28/15, the code = 9360) glucose referen ce intervals have been updated based o n [place] [employer] joey delines (Standards of edical Care in Diabete s 2016. Diabetes Care 2 016; 39: S13-S22).Fastin g blood glucose:Normal: 70 99 mg/dLImpaire d fasting glucose (increa sed risk for diabetes or pre-diabetes): 100 125 mg/dLDiabet es mellitus: >/=1 26 mg/dL Random blood glucose:Normal: 70 199 mg/dLNote: Random glucose >100 mg /dL is associated with increased risk for diabetes MD HilarioPrvhpntfUtwmhkgmfpjn6309-21-81 15:58:36 Test Item Value Reference Range Interpretation Comments Neutrophil % (test code = 71.7 % 42-66 H 03409-5) Lymphocyte % (test code = 13.2 % 24-44 L 737-7) Monocyte % (test code = 10.6 % 2-7 H 744-3) Eosinophil % (test code = 3.1 % 1-4 713-8) Basophil % (test code = 1.1 % 0-1 H 707-0) IGRE % (test code = 0.3 % 0-0.4 IGRE % c ount 14087-6) includes Metamyelocytes, Myelocytes, and Promyelocytes. Neutrophil Abs (test code 4.66 K/uL 1.7-7.3 = 753-4) Lymphocyte Abs (test code 0.86 K/uL 1-4.8 L = 732-8) Monocyte Abs (test code = 0.69 K/uL 0.08-0.7 743-5) Eosinophil Abs (test code 0.20 K/uL 0.04-0.4 = 712-0) Basophil Abs (test code = 0.07 K/uL 0-0.1 705-4) IG Abs (test code = 0.02 K/uL 0-0.04 77972-6) Lab Interpretation (test Abnormal code = 16844-8) MD Hilario.[id number] 15:58:34 Test Item Value Reference Range Interpretation [...] (test code = 52.2 fL 35.1-46.3 H 88287-9) RDW-CV (test code = 14.5 % 12-15.5 [...] differential. Lab Interpretation Abnormal (test code = 75885-4) MD HilarioCT Chest Abdomen Pelvis with Dmncxiym7675-23-07 13:42:00 1. Marked decrease in the vascularity [...] findings and post treatment changes as above.MD HilarioUric [id number] 16:23:55 Test Item Value Reference Range Interpretation Comments Uric Acid (test code = 7955) 5.9 mg/dL 3.4-7 MD HilarioPTH [id number] 16:20:53 Test Item Value Reference Range Interpretation Comments PTH Intact (test code = 6769) 45.6 pg/mL 15-65 MD HilarioPETCT Subsequent Treatment [id number] 15:15:53More focal diffuse activity in the gastric [...] of progressive FDG avid disease identified. [facility] Glucose [id number] 13:44:41 Test Item Value Reference Range Interpretation Comments POC Glucose (test 86 mg/dL 70-99 Capillary blood samples, code = 73998-1) e.g. obtaine d by fingerstick, aleena y have inaccurate resu lts in patients with d ecreased peripheral bloo d flow. PO Sample Type (test Venous code = 9554) MD Hilario
--- NOTE | 2020-02-18 15:59 | RAD REPORT ---
EXAM DESCRIPTION: RAD - Chest Single View - 02/18/2020 3:12 pm CLINICAL HISTORY: syncope COMPARISON: Portable May 2018 TECHNIQUE: AP portable chest image was obtained 02/18/2020 3:12 pm . FINDINGS: No focal mass or consolidation. Interstitial pattern is prominent but stable. Left-sided P ort-A-Cath is in place new from the comparison. Heart and vasculature are normal. No measurable pleur al effusion and no pneumothorax. No acute bony abnormality seen. No acute aortic findings suspected. IMPRESSION: No acute cardiopulmonary process. No suspicious change from comparison.
[2020-02-18 16:06] LABS: Absolute Lymphocytes (CBC) 0.4 K/uL (0.7-4.9); Basophils % 0.3 % (0-1.3); Hematocrit 42.5 % (39.6-49.0); Lymphocytes % 2.4 % (15.3-44.8); MPV 11.3 fL (7.6-11.3); RBC Red Blood Cell Count 4.59 M/uL (4.33-5.43)
[2020-02-18 16:19] LABS: Albumin 2.9 g/dL (3.4-5.0); Bilirubin Direct 0.7 mg/dL (0-0.2); Bilirubin Total 1.7 mg/dL (0.2-1.0); Magnesium 2.7 mg/dL (1.8-2.4); Potassium 4.6 mmol/L (3.5-5.1); Protein, Total 7.2 g/dL (6.4-8.2)
[2020-02-18 16:22] LABS: Troponin (Emerg Dept Use Only) 0.86 ng/mL (0.0-0.045)
[2020-02-18] MEDS ORDERED: FAMOTIDINE 20 MG/2 ML VIAL IV ONE (16:22)
[2020-02-18] MEDS ORDERED: NA CHLORIDE 0.9% 1,000 ML ONE ×2 (16:22→21:30)
[2020-02-18 16:51] LABS: Blood Morphology Comment NOT SEEN (NOT SEEN); Platelet Estimate DECR; White Blood Cell Scan OK (OK)
[2020-02-18] MEDS ORDERED: ASPIRIN 81 MG CHEWABLE TABLET ONE ×2 (17:16→17:17)
--- NOTE | 2020-02-18 19:41 | ER ---
Nurse's Notes [facility] Name: Azeem Mclaughlin III Age: 79 yrs Sex: Male : 1940 Arrival Date: 02/18/2020 Time: 14:32 Bed 5 Private MD: Diagnosis: Syncope and collapse;Hypotension-resolved;Acute kidney failure;Subsequent non-ST elevation (NSTEMI) myocardial infarction;Bradycardia, unspecified;Abdominal tenderness-hx, hospice foe extensive metastatic rectal cancer Presentation: 02/17 14:32 Chief complaint: EMS states: 79 yr old was taking a shower when the son reports that he rb3 got a blank look and became unconscious. By the time EMS arrived, he was A \\T\\ O x 4. He was hypotensive with BP 77 systolic, Administered NS 100 ml bolus, BS 63, administered D 10 100, BS 95, P 50, O2 97% RA, and afebrile.. They also gave Zofran 4 mg IVP x 1 . Has a history of cancer that has metastasized, currently on Hospice. Pt has a bruise on the left eye from a previous fall last week. Coronavirus screen: At this time, the client does not indicate any symptoms associated with coronavirus-19. Ebola Screen: Patient denies travel to an Ebola-affected area in the 21 days before illness onset. Risk Assessment: Do you want to hurt yourself or someone else? Patient reports no desire to harm self or others. Onset of symptoms was February 18, 2020. 14:32 Method Of Arrival: EMS: [facility] rb3 14:32 Acuity: ARCHIE 3 rb3 21:28 Initial Sepsis Screen: Does the patient meet any 2 criteria? No. Patient's initial rv sepsis screen is negative. Does the patient have a suspected source of infection? No. Patient's initial sepsis screen is negative. Triage Assessment: 14:32 General: Appears in no apparent distress. comfortable, slender, Behavior is calm, rb3 cooperative, Denies fever. Pain: Denies pain. Neuro: Level of Consciousness is awake, alert, obeys commands, Oriented to person, place, time, situation, Reports a syncopal episode. Cardiovascular: Patient's skin is warm and dry. Cardiovascular: Rhythm is sinus bradycardia. Respiratory: Airway is patent Respiratory effort is even, unlabored, Respiratory pattern is regular, symmetrical. GI: No signs and/or symptoms were reported involving the gastrointestinal system. : No signs and/or symptoms were reported regarding the genitourinary system. Derm: Bruising that is dark purple, on left eye EMS reports that is from a previous fall that occurred last week. Historical: - Allergies: 14:32 No Known Allergies; rb3 - Home Meds: 14:32 losartan Oral [Active]; Metoprolol Tartrate Oral [Active]; clopidogrel oral oral rb3 [Active]; Amiodarone Oral [Active]; hydrocodone-acetaminophen 7.5-325 mg Oral tab 1 tab every 6 hours for Pain [Active]; - PMHx: 14:32 Gout; Hypertension; RECTAL CA; rb3 - PSHx: 14:32 cardiac stents; rb3 - Immunization history:: Adult Immunizations up to date. - Social history:: Smoking status: Patient/guardian denies using. Screenin:32 Abuse screen: Denies threats or abuse. Nutritional screening: No deficits noted. rb3 Tuberculosis screening: No symptoms or risk factors identified. Fall Risk Fall in past 12 months (25 points). Secondary diagnosis (15 points) cancer. IV access (20 points). Ambulatory Aid- None/Bed Rest/Nurse Assist (0 pts). Gait- Normal/Bed Rest/Wheelchair (0 pts) Mental Status- Oriented to own ability (0 pts). Total [place] Fall Scale indicates High Risk Score (45 or more points). Fall prevention measures have been instituted. Side Rails Up X 2 Placed Close to Nursing Station 1:1 Attendant Assigned Frequent Obs/Assessments Occuring As available patient and family educated on Fall Prevention Program and Strategies. Assessment: 14:32 General: See triage assessment. rb3 15:16 Reassessment: PHLEBOTOMY CONTACTED FOR BLOOD DRAW. Neuro: Level of Consciousness is bp awake, alert, obeys commands, Oriented to Appropriate for age. Cardiovascular: Rhythm is sinus bradycardia. 16:05 Reassessment: Lab was unable to draw the Pt, Dr. Bobo notified. Dr. Bobo stated, rb3 "That's alright, it's not a deal breaker.". 16:20 Reassessment: Patient appears in no apparent distress at this time. No changes from rb3 previously documented assessment. Patient and/or family updated on plan of care and expected duration. Pain level reassessed. Patient is alert, oriented x 3, equal unlabored respirations, skin warm/dry/pink. 17:20 Reassessment: Patient appears in no apparent distress at this time. No changes from rb3 previously documented assessment. Gave the pt. another warm blanket. 19:30 General: Appears comfortable, Behavior is calm, cooperative. rv 19:30 Pain: Denies pain. Neuro: Level of Consciousness is awake, alert, obeys commands, rv Oriented to person, place, time, situation. Cardiovascular: Patient's skin is warm and dry. Rhythm is sinus rhythm. Respiratory: Airway is patent Respiratory effort is even, unlabored. Derm: Skin is healthy with good turgor. Vital Signs: 14:32 BP 104 / 59; Pulse 52; Resp 15; Pulse Ox 98% ; Weight 68.04 kg; Height 5 ft. 8 in. rb3 (172.72 cm); Pain 0/10; 15:00 BP 97 / 54; Pulse 52; Resp 14; Pulse Ox 98% ; bp 16:00 BP 120 / 51; Pulse 51; Resp 13; Pulse Ox 98% ; bp 17:00 BP 116 / 55; Pulse 50; Resp 12; Pulse Ox 100% ; rb3 19:45 BP 144 / 66; Pulse 56; Resp 16; Pulse Ox 100% on R/A; rv 20:42 BP 130 / 52; Pulse 56; Resp 16; Pulse Ox 100% on R/A; rv 14:32 Body Mass Index 22.81 (68.04 kg, 172.72 cm) rb3 ED Course: 14:32 Patient arrived in ED. rb3 14:32 Arm band placed on right wrist. rb3 14:32 Patient has correct armband on for positive identification. Bed in low position. Call rb3 light in reach. Side rails up X 1. shaper operator on. Pulse ox on. NIBP on. Warm blanket given. 14:32 Maintain EMS IV. Dressing intact. Good blood return noted. Site clean \\T\\ dry. Gauge \\T\\ rb 3 site: 18 G R AC. 14:34 Dionte Bobo MD is Attending Physician. kdr 14:40 Triage completed. rb3 15:07 Lucero Young RN is Primary Nurse. rb3 15:07 Missed attempt(s): 22 gauge in left antecubital area. rb3 15:12 XRAY Chest (1 view) In Process Unspecified. EDMS 18:20 Attending Physician role handed off by Dionte Bobo MD cha 18:20 Mode Hilario MD is Attending Physician. ladonna 18:43 Troponin (emerg Dept Use Only): Draw at 1820 Sent. mh5 19:37 Guilherme Zarate MD is Hospitalizing Provider. ladonna 20:13 CT Traumagram (Head C Spine CAP wo con) In Process Unspecified. EDMS 21:28 No provider procedures requiring assistance completed. IV is patent, with fluids rv infusing freely, Patient admitted, IV remains in place. Administered Medications: 15:45 Drug: NS 0.9% 1000 ml Route: IV; Rate: 1 bolus; Site: right antecubital; bp 20:43 Follow up: IV Status: Completed infusion; IV Intake: 1000ml rv 15:50 Drug: Pepcid 20 mg Route: IVP; Site: right antecubital; bp 16:10 Follow up: Response: No adverse reaction rb3 17:06 Drug: Aspirin Chewable Tablet 324 mg Route: PO; rb3 20:43 Follow up: Response: No adverse reaction rv 21:26 Drug: NS 0.9% 1000 ml Route: IV; Rate: 125 ml/hr; Site: right antecubital; rv 21:29 Follow up: IV Status: Infusion continued upon admission rv 21:26 Drug: Rocephin 1 grams Route: IV; Rate: per protocol; Site: right antecubital; rv 21:29 Follow up: IV Status: Infusion continued upon admission rv Intake: 20:43 IV: 1000ml; Total: 1000ml. rv Outcome: 19:41 Decision to Hospitalize by Provider. ladonna 21:29 Admitted to ER Hold. Please see [facility] for further documentation. rv 21:29 Condition: stable 21:29 Discharge instructions given to patient, Instructed on the need for admit. 02/18 08:39 Patient left the ED. ph Signatures: Dispatcher [employer] EDMode Prather MD MD cha Rittger, Kevin, MD MD kdr Hall, Patricia, RN RN Mary Ty [facility] Regan Marie, BILL RN bp Chidi Gutierrez RN RN rv Lucero Young, RN RN rb3 Corrections: (The following items were deleted from the chart) 07:32 02/17 16:20 Reassessment: Patient appears in no apparent distress at this time. No rb3 changes from previously documented assessment. Patient and/or family updated on plan of care and expected duration. Pain level reassessed. Patient is alert, oriented x 3, equal unlabored respirations, skin warm/dry/pink. bp
--- NOTE | 2020-02-18 19:41 | EDPHYS ---
Physician Documentation [facility] Name: Azeem Mclaughlin III Age: 79 yrs Sex: Male : 1940 Arrival Date: 02/18/2020 Time: 14:32 Bed 5 Private MD: ED Physician Mode Hilario HPI: 02/17 17:13 This 79 yrs old Male presents to ER via EMS with complaints of Syncope. kdr 17:13 The patient has experienced syncope, became unresponsive, collapsed. Onset: The kdr symptoms/episode began/occurred suddenly, just prior to arrival. Duration: This was a single episode, short. Context: the episode(s) was witnessed, by family, son, occurred at home, In shower, occurred while the patient was at rest, In a hot shower strapped into the shower. Associated injury: The patient did not suffer any apparent associated injury. Associated signs and symptoms: The patient has no apparent associated signs or symptoms. Current symptoms: Currently, the patient is not experiencing any symptoms. The patient has not experienced similar symptoms in the past. The patient has not recently seen a physician. Historical: - Allergies: 14:32 No Known Allergies; rb3 - Home Meds: 14:32 losartan Oral [Active]; Metoprolol Tartrate Oral [Active]; clopidogrel oral oral rb3 [Active]; Amiodarone Oral [Active]; hydrocodone-acetaminophen 7.5-325 mg Oral tab 1 tab every 6 hours for Pain [Active]; - PMHx: 14:32 Gout; Hypertension; RECTAL CA; rb3 - PSHx: 14:32 cardiac stents; rb3 - Immunization history:: Adult Immunizations up to date. - Social history:: Smoking status: Patient/guardian denies using. ROS: 17:13 Constitutional: Negative for fever, chills, and weight loss, Eyes: Negative for injury, kdr pain, redness, and discharge, ENT: Negative for injury, pain, and discharge, Neck: Negative for injury, pain, and swelling, Cardiovascular: Negative for chest pain, palpitations, and edema, Respiratory: Negative for shortness of breath, cough, wheezing, and pleuritic chest pain, Abdomen/GI: Negative for abdominal pain, nausea, vomiting, diarrhea, and constipation, Back: Negative for injury and pain, : Negative for injury, bleeding, discharge, and swelling, MS/Extremity: Negative for injury and deformity, Skin: Negative for injury, rash, and discoloration, Psych: Negative for depression, anxiety, suicide ideation, homicidal ideation, and hallucinations, Allergy/Immunology: Negative for hives, rash, and allergies, Endocrine: Negative for neck swelling, polydipsia, polyuria, polyphagia, and marked weight changes, Hematologic/Lymphatic: Negative for swollen nodes, abnormal bleeding, and unusual bruising. 17:13 Neuro: Positive for syncope, weakness, Negative for dizziness, headache, numbness, seizure activity, speech changes, syncope, near syncope, tinnitus, tremor. Exam: 14:40 ECG was reviewed by the Attending Physician. kdr 17:13 Constitutional: This is a well developed, well nourished patient who is awake, alert, kdr and in no acute distress. ENT: Nares patent. No nasal discharge, no septal abnormalities noted. Tympanic membranes are normal and external auditory canals are clear. Oropharynx with no redness, swelling, or masses, exudates, or evidence of obstruction, uvula midline. Mucous membranes moist. Neck: Trachea midline, no thyromegaly or masses palpated, and no cervical lymphadenopathy. Supple, full range of motion without nuchal rigidity, or vertebral point tenderness. No Meningismus. Chest/axilla: Normal chest wall appearance and motion. Nontender with no deformity. No lesions are appreciated. Cardiovascular: Regular rate and rhythm with a normal S1 and S2. No gallops, murmurs, or rubs. Normal PMI, no JVD. No pulse deficits. Respiratory: Lungs have equal breath sounds bilaterally, clear to auscultation and percussion. No rales, rhonchi or wheezes noted. No increased work of breathing, no retractions or nasal flaring. Abdomen/GI: Soft, non-tender, with normal bowel sounds. No distension or tympany. No guarding or rebound. No evidence of tenderness throughout. Back: No spinal tenderness. No costovertebral tenderness. Full range of motion. Skin: Warm, dry with normal turgor. Normal color with no rashes, no lesions, and no evidence of cellulitis. MS/ Extremity: Pulses equal, no cyanosis. Neurovascular intact. Full, normal range of motion. Neuro: Awake and alert, GCS 15, oriented to person, place, time, and situation. Cranial nerves II-XII grossly intact. Motor strength 5/5 in all extremities. Sensory grossly intact. Cerebellar exam normal. Normal gait. Psych: Awake, alert, with orientation to person, place and time. Behavior, mood, and affect are within normal limits. 17:13 Head/face: Exam is negative for Noted is contusion, that is superficial, of the left eye, ecchymosis, that is moderate, of the left eye, of the From fall last week. Vital Signs: 14:32 BP 104 / 59; Pulse 52; Resp 15; Pulse Ox 98% ; Weight 68.04 kg; Height 5 ft. 8 in. rb3 (172.72 cm); Pain 0/10; 15:00 BP 97 / 54; Pulse 52; Resp 14; Pulse Ox 98% ; bp 16:00 BP 120 / 51; Pulse 51; Resp 13; Pulse Ox 98% ; bp 17:00 BP 116 / 55; Pulse 50; Resp 12; Pulse Ox 100% ; rb3 19:45 BP 144 / 66; Pulse 56; Resp 16; Pulse Ox 100% on R/A; rv 20:42 BP 130 / 52; Pulse 56; Resp 16; Pulse Ox 100% on R/A; rv 14:32 Body Mass Index 22.81 (68.04 kg, 172.72 cm) rb3 MDM: 17:13 Data reviewed: vital signs, nurses notes, lab test result(s), EKG, radiologic studies. kdr Counseling: I had a detailed discussion with the patient and/or guardian regarding: the historical points, exam findings, and any diagnostic results supporting the discharge/admit diagnosis, lab results, radiology results. 18:20 Patient medically screened. ladonna 02/17 14:48 Order name: Basic Metabolic Panel; Complete Time: 16:46 kdr 02/17 14:48 Order name: CBC with Diff; Complete Time: 19:32 kdr 02/17 14:48 Order name: LFT's; Complete Time: 16:46 kdr 02/17 14:48 Order name: Magnesium; Complete Time: 16:46 kdr 02/17 14:48 Order name: NT PRO-BNP; Complete Time: 16:46 kdr 02/17 14:48 Order name: Troponin (emerg Dept Use Only); Complete Time: 16:46 kdr 02/17 16:51 Order name: CBC Smear Scan; Complete Time: 19:32 EDDC 02/17 17:45 Order name: Troponin (emerg Dept Use Only): Draw at 1820; Complete Time: 19:32 aa5 02/17 21:03 Order name: Urine Culture [facility] 02/17 21:30 Order name: SARS-COV-2 RT PCR; Complete Time: 06:50 EDDC 02/18 00:04 Order name: Urine Dipstick--Ancillary (enter results) tt3 02/18 02:43 Order name: Troponin I; Complete Time: 06:50 EDMS 02/17 14:48 Order name: XRAY Chest (1 view); Complete Time: 16:46 [facility] 02/17 14:48 Order name: EKG; Complete Time: 14:49 [facility] 02/17 14:48 Order name: Cardiac monitoring; Complete Time: 14:50 [facility] 02/17 14:48 Order name: EKG - Nurse/Tech; Complete Time: 14:50 [facility] 02/17 14:48 Order name: IV Saline Lock; Complete Time: 14:50 [facility] 02/17 14:48 Order name: Labs collected and sent; Complete Time: 15:21 [facility] 02/17 19:34 Order name: CT Traumagram (Head C Spine CAP wo con); Complete Time: 06:50 [facility] 02/18 06:01 Order name: CBC with Automated Diff [facility] 02/18 06:04 Order name: Basic Metabolic Panel; Complete Time: 06:50 EDDC 18 06:40 Order name: Troponin I; Complete Time: 06:50 [facility] 02/18 07:52 Order name: Manual Differential [facility] 02/17 14:48 Order name: O2 Per Protocol; Complete Time: 14:50 [facility] 02/17 14:48 Order name: O2 Sat Monitoring; Complete Time: 14:51 [facility] 02/17 20:58 Order name: Urine Dipstick-Ancillary (obtain specimen); Complete Time: 00:05 tt3 EC:40 Rate is 51 beats/min. Rhythm is regular, Sinus Rhythm with No ectopy. Left axis kdr deviation noted. [place] interval is normal. ST Segment is depressed in leads III, V1, V2, V3. Clinical impression: NSR w/ Non-specific ST/T Changes and Bifasciular block. Administered Medications: 15:45 Drug: NS 0.9% 1000 ml Route: IV; Rate: 1 bolus; Site: right antecubital; bp 20:43 Follow up: IV Status: Completed infusion; IV Intake: 1000ml rv 15:50 Drug: Pepcid 20 mg Route: IVP; Site: right antecubital; bp 16:10 Follow up: Response: No adverse reaction rb3 17:06 Drug: Aspirin Chewable Tablet 324 mg Route: PO; rb3 20:43 Follow up: Response: No adverse reaction rv 21:26 Drug: NS 0.9% 1000 ml Route: IV; Rate: 125 ml/hr; Site: right antecubital; rv 21:29 Follow up: IV Status: Infusion continued upon admission rv 21:26 Drug: Rocephin 1 grams Route: IV; Rate: per protocol; Site: right antecubital; rv 21:29 Follow up: IV Status: Infusion continued upon admission rv Disposition: 02/18/20 19:41 Hospitalization ordered by Guilherme Zarate for Inpatient Admission. Preliminary diagnosis are Syncope and collapse, Hypotension - resolved, Acute kidney failure, Subsequent non-ST elevation (NSTEMI) myocardial infarction, Bradycardia, unspecified, Abdominal tenderness - hx, hospice foe extensive metastatic rectal cancer. - Bed requested for [facility] ER HOLD. - Status is Inpatient Admission. ph - Condition is Serious. - Problem is new. - Symptoms have improved. Signatures: Dispatcher [employer] EDDC lEena Friedman RN RN dw Anderson, Corey, MD MD cha Rittger, Kevin, MD MD kdr Hall, Patricia, RN RN ph Peltier, Brian RN RN Chidi White RN RN Laith Diggs tt3 Lucero Young, RN RN rb3 Corrections: (The following items were deleted from the chart) 16:32 14:49 PROTIME (+INR)+COAG.LAB.BRZ ordered. EDDC EDMS 19:42 19:41 Hospitalization Ordered by Guilherme Zarate MD for Inpatient Admission. Preliminary ladonna diagnosis is Syncope and collapse; Hypotension; Acute kidney failure; Subsequent non-ST elevation (NSTEMI) myocardial infarction; Bradycardia, unspecified. Bed requested for Telemetry/MedSurg (Inpatient). Status is Inpatient Admission. Condition is Serious. Problem is new. Symptoms have improved. ladonna 20:31 19:49 CORONAVIRUS+MR.LAB.BRZ ordered. EDDC EDMS 20:50 19:42 02/18/2020 19:41 Hospitalization Ordered by Guilherme Zarate MD for Inpatient dw Admission. Preliminary diagnosis is Syncope and collapse; Hypotension - resolved; Acute kidney failure; Subsequent non-ST elevation (NSTEMI) myocardial infarction; Bradycardia, unspecified; Abdominal tenderness - hx, hospice foe extensive metastatic rectal cancer. Bed requested for Telemetry/MedSurg (Inpatient). Status is Inpatient Admission. Condition is Serious. Problem is new. Symptoms have improved. [facility] 02/18 08:39 02/17 20:50 02/18/2020 19:41 Hospitalization Ordered by Guilherme Zarate MD for Inpatient ph Admission. Preliminary diagnosis is Syncope and collapse; Hypotension - resolved; Acute kidney failure; Subsequent non-ST elevation (NSTEMI) myocardial infarction; Bradycardia, unspecified; Abdominal tenderness - hx, hospice foe extensive metastatic rectal cancer. Bed requested for [facility] ER HOLD. Status is Inpatient Admission. Condition is Serious. Problem is new. Symptoms have improved. dw
--- NOTE | 2020-02-18 20:38 | RAD REPORT ---
EXAM DESCRIPTION: CT - Head C Spine Cap Wo Con - 02/18/2020 8:14 pm CLINICAL HISTORY: fall syncope;Pain;Weakness, head, neck, chest and abdomen pain COMPARISON: Abdomen Pelvis Wo Contrast dated 02/01/2020; Chest Single View dated 02/18/2020 TECHNIQUE: Axial [address] head images were obtained. Axial [address] cervical spine images were obtain ed with sagittal and coronal reconstruction images reviewed. Axial 5 mm images of the chest, abdomen and pelvis were obtained. All CT scans are performed using dose optimization technique as appropriate and may include automated exposure control or mA/KV adjustment according to patient size. FINDINGS: No intracranial hemorrhage, mass or edema. No cortical edema or sulcal effacement. Atrophy changes are present relatively mild for age. Ventricles are in proportion. There is increased CSF ov erlying the right frontal lobe. This could be chronic subdural hematoma or subdural hygroma. This ponce s not cause mass effect or midline shift. Dense arterial tree calcifications are present. Mastoid air cells and paranasal sinuses are clear. No skull fracture. Cervical bodies are normal in height. There is very slight retrolisthesis of C4 on C5 and C5 on C6. N o fracture or acute bone finding.C4-5, C5-6 and C6-7 disc space narrowing seen. Endplate spurring and uncovertebral joint hypertrophy changes are present. Prominent facet joint degenerative changes are present. Significant bony foraminal stenosis on the right at C3-4 and bilateral at C4-5, C5-6 and lef t C6-7No prevertebral soft tissue thickening or paraspinal mass.Central canal detail is inherently li mited on CT imaging. CT chest shows no pneumothorax, pulmonary contusion or pleural fluid collection. No mediastinal hem atoma seen. Aorta and pulmonary arterial tree assessment is limited in the absence of contrast. Dense arterial tree calcifications are present. Cardiac valve and Coronary artery calcifications are prese nt. Nonspecific mediastinal lymph nodes are present. No chest will mass or abnormal axillary finding. No displaced rib fracture or other significant bony finding. Left-sided Port-A-Cath in place. No acute traumatic injury to the solid abdominal viscera. Low-density masses of the hepatic parenchym a are present not fully assessed due to absent contrast and spray artifact from the right upper extre mity which is positioned along the patient's side. No spleen or pancreatic acute process. No acute antonia wel injury seen. Well filled gallbladder shows no acute finding. No biliary tree dilatation. No free air, free fluid or inflammatory stranding. Dense arterial tree calcifications are present. Left kidne y is atrophic relative to the right. Numerous periaortic/pericaval lymph nodes are present. Pattern i s not grossly different from the prior study of January 31. No urinary bladder abnormality. Fat onl y left inguinal hernia is seen. No significant bony finding. Disc and bone degenerative changes are present. IMPRESSION: No acute intracranial hemorrhage. No edema or acute intracranial finding. Prominent cervical spine degenerative change as detailed. No acute finding. No significant CT Chest finding. Mediastinal and hilar lymph nodes are nonspecific but could be malig nant given the additional findings. No acute traumatic injury to the abdomen or pelvis. Presumed metastatic lesions throughout the liver are again noted not grossly different over the short interval since January 31. The periaortic/ juliet caval lymphadenopathy also grossly stable.
[2020-02-18] MEDS ORDERED: CEFTRIAXONE/SWI 1gm 1 GM/10 ML SYR ONE (21:30)
[2020-02-18 22:51] VITALS: BMI 22.8
[2020-02-18] MEDS ORDERED: FAMOTIDINE 20 MG/2 ML VIAL IV SCH (23:47)
[2020-02-18] MEDS ORDERED: NA CHLORIDE 0.9% 1,000 ML IV SCH (23:47)
[2020-02-18] MEDS ORDERED: ACETAMINOPHEN 325 MG TABLET PO PRN (23:47)
[2020-02-18] MEDS ORDERED: MORPHINE 2 MG/ML SYR IV PRN (23:47)
[2020-02-18] MEDS ORDERED: ONDANSETRON 4 MG/2 ML VIAL IV PRN (23:47)
[2020-02-19] MEDS ORDERED: ONDANSETRON 4 MG/2 ML VIAL ONE (03:26)
[2020-02-19] MEDS ORDERED: MORPHINE 2 MG/ML SYR ONE (03:26)
[2020-02-19 05:22] VITALS: O2SAT 92
[2020-02-19 05:51] LABS: Absolute Lymphocytes (CBC) 0.5 K/uL (0.7-4.9); Basophils % 0.4 % (0-1.3); Hematocrit 40.7 % (39.6-49.0); Lymphocytes % 2.9 % (15.3-44.8); MPV 11.1 fL (7.6-11.3); RBC Red Blood Cell Count 4.43 M/uL (4.33-5.43)
[2020-02-19 06:02] LABS: Potassium 4.9 mmol/L (3.5-5.1)
[2020-02-19 07:51] LABS: Blood Morphology Comment NOT SEEN (NOT SEEN); Platelet Estimate DECR
[2020-02-19 08:17] VITALS: BP 114/58; TEMP 97.8
[2020-02-19] MEDS ORDERED: ASPIRIN EC 81 MG TAB PO SCH (09:00)
[2020-02-19] MEDS ORDERED: FAMOTIDINE 20 MG/2 ML VIAL IV SCH (09:00)
[2020-02-19] MEDS ORDERED: INFLUENZA VACCINE (for 3y+) 0.5 ML DOSE IMVAC ONE (09:00)
[2020-02-19 12:19] LABS: Urine Blood NEGATIVE (NEG); Urine Glucose NEGATIVE (NEG); Urine Protein NEGATIVE (NEG)
--- NOTE | 2020-02-19 21:03 | P.SSS ---
Patient History Date of Service: 02/19/20 Reason for admission: NEAR SYNCOPE History of Present Illness: MR. HERMAN IS A 79 YEARS OLD GENTLEMAN WITH METASTATIC ANAL CANCER WHO WAS ON HOSPICE FOR A FEW DAYS BUT FAMILY GOT SCARED WITH THE EVENT, REVOKED AND BROUGHT HIM TO ER. HE WHILE BEING GIVEN A BATH BECAME STIFF AND EYES ROLLED. SON GOT SCARED. HIS LAB SHOWS SIGNS OF DEHYDRATION. HE IS IN MODERATE AMOUNT OF GENERALIZED PAIN. HE WAS GIVEN MORPHINE IN ER. HE HAD PANIC ATTACK WITH IV MORPHINE. HE AND SON WANT TO GO HOME AND BACK ON HOSPICE. I CAME TO ER, SAW HIM GAVE HIM COMFORT AND LET HIM AND FAMILY KNOW THAT HE HAS A FEW DAYS TO LIVE AND HE WILL HAVE SYMPTOMS LIKE THIS. THERE IS HOSPICE TEAM TO HELP HIM AND ALL MEDICATIONS AT HOME. THEY WERE CONTENT TO HEAR THAT HE WILL BE COMFORTABLE AT HOME. Allergies No Known Allergies Allergy (Verified 03/30/16 09:08) Home medications list reviewed: Yes Home Medications: Aspirin [Aspirin EC 81 MG] 81 mg PO DAILY 03/30/16 Atorvastatin Calcium [Lipitor] 80 mg PO BEDTIME 03/30/16 Colchicine [Colcrys *] 0.6 mg PO BID 03/30/16 Ezetimibe [Zetia*] 10 mg PO DAILY 03/30/16 Isosorbide Mononitrate [Isosorbide Mononitrate ER] 30 mg PO DAILY 03/30/16 Losartan/Hydrochlorothiazide [Losartan-Hctz 100-12.5 mg Tab] 1 each PO BID 03/30/16 Meloxicam [Mobic] 15 mg PO DAILY 03/30/16 Metoprolol Tartrate [Lopressor*] 50 mg PO BID 03/30/16 Multivit-Min/FA/Lycopen/Lutein [Centrum Silver Tablet] 1 each PO DAILY 03/30/16 Vit A/Vit C/Vit E/Zinc/Copper [Icaps Areds Formula Dr Tablet] 1 each PO DAILY 03/30/16 - Past Medical/Surgical History Diabetic: No - Social History Smoking Status: Never smoker Place of Residence: Home Review of Systems 10-point ROS is otherwise unremarkable General: Weakness, Malaise Gastrointestinal: Abdominal Pain, No Distention Physical Examination - Vital Signs Temperature: 97.8 F Blood Pressure: 114/58 Pulse: 58 Respirations: 18 Pulse Ox (%): 98 - Physical Exam General: Cachectic (HAS LOST SIGNIFICANT AMOUNT OF WEIGHT.), Moderate distress HEENT: Atraumatic, PERRLA, Mucous membr. 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 HE IS TERMINAL AND BACK ON HOSPICE WHEN HE REACHES HOME. - Disposition Disposition: ROUTINE DISCHARGE Condition: SERIOUS
--- NOTE | 2020-02-20 14:03 | EKG ---
Test Date: 2020-02-18 Test Time: 14:30:57 Home Builder: THERESA MEASUREMENT RESULTS: Intervals: Rate: 51 VA: 180 QRSD: 158 QT: 568 QTc: 523 [place]: P: 98 VA: 180 QRS: -69 T: -62 INTERPRETIVE STATEMENTS: Sinus bradycardia Right bundle branch block Left anterior fascicular block Bifascicular block Septal infarct, age undetermined T wave abnormality, consider lateral ischemia Abnormal ECG Compared to ECG 05/15/2018 15:54:26 Left anterior fascicular block now present Bifascicular block now present T-wave abnormality now present Possible ischemia now present Sinus rhythm no longer present Myocardial infarct finding still present Electronically Signed On 02-20-20 13:59:00 CLINICAL PROJECT ASSISTANT by Patrick Henderson
== END 2020-02-19 08:44 | disposition home or self-care (01) | DRG 312 ==
LOC: ER 14:22 → ERHOLD 20:52
PROVIDERS: ADMIT Internal Medicine; ATTEND Internal Medicine
DX: R55 Syncope and collapse (principal); R64 Cachexia; C21.0 Malignant neoplasm of anus, unspecified; C78.7 Secondary malignant neoplasm of liver and intrahepatic bile duct; E86.0 Dehydration; M10.9 Gout, unspecified; I10 Essential (primary) hypertension; Z79.82 Long term (current) use of aspirin; Z79.899 Other long term (current) drug therapy; Z95.5 Presence of coronary angioplasty implant and graft; Z68.22 Body mass index [BMI] 22.0-22.9, adult; Z20.828 Contact with and (suspected) exposure to other viral communicable diseases
CPT/HCPCS: 36415; 70450; 71045; 71250; 72125; 80048; 80076; 81003; 83735; 83880; 84484; 85025; 87086; 87088; 93005; 96361; 96374; 96375; 99285; J0696; J2270; J2405; J7030; U0003